=== PATIENT | female | born 1965 | race Caucasian/White ===

== ENCOUNTER 2018-04-29 15:00 | Outpatient (RCR) | payer MEDICARE, MEDICAID, SELFPAY ==
--- NOTE | 2018-03-27 14:35 | HMH.PTOPEV ---
PT Outpatient Evaluation Rehab PT Outpatient Evaluation Start: 03/27/18 13:05 Freq: Status: Active Protocol: Document 03/27/18 14:23 NATALIIA (Rec: 03/27/18 14:35 PHORFANNY [id number]) Electronically Signed By Paul Hunter, PT 03/27/18 14:23 Outpatient Therapy Subjective History Subjective History Pt is 52 yowf who presents with c/o robert knee pain (left > right) x ~ 3 yrs, gradually worsening symptoms. She reports she was diagnosed with RA, OA, and fibromyalgia when her pain first began. She has been to multiple different MDs over the past 3 yrs due to not disagreement about her plan of care. She has tried injections in both knees with little to no success. She reports pain is constant, but worse with certain movements and activities. She also has hx of HTN. Chief Complaint Pain Stiff Symptom Type Ache Throb Sharp Shooting Symptoms Relieved By Heat Symptoms Aggravated By Walking Prior Functional Limitations Standing Walking Stairs Current Functional Limitations Standing Walking Stairs Symptom Description Constant but Variable Level of pain today (0-10) 6 Pain scale - at its worst (0-10) 10 Hip/Knee Eval Gait Observation General Gait Pattern Observation Antalgic Gait Assistive Device Assistive Devices Straight Cane Palpation Tenderness bilateral Knee Palpation Finding Tenderness MMT Hip Flexion Strength Grade 4 Good Hip Abduction Strength Grade 4 Good Hip Adduction Strength Grade 5 Normal Hip Extension Strength Grade 5 Normal Knee Extension Strength Grade 5 Normal Knee Flexion Strength Grade 4 Good ROM left Knee Flexion Active Range of Motion ( 30-109 degrees) right Knee Flexion Active Range of Motion ( 5-120 degrees) Special Tests Hip Gabriella's Test Negative Right Positive Left Outpatient Therapy Assessment Impairments Problems/Impairmments Palpation Tenderness
== END 2018-04-29 15:05 | disposition home or self-care (01) ==
LOC: PT 15:00
PROVIDERS: Visit Provider Orthopaedic Surgery
DX: M17.0 Bilateral primary osteoarthritis of knee (principal)
CPT/HCPCS: 97010; 97014; 97110; 97140; 97163; G0283

== ENCOUNTER 2018-11-21 14:57 | Observation (INO) ==
--- NOTE | 2018-11-21 15:27 | Emergency Department Note ---
ED Disposition Clinical Impression: Syncope and collapse, Hypertension, Chest pain Disposition: Still a Patient Condition on Discharge: Fair Instructions: DI for Syncope in Adults (Fainting), DI for Syncope in Children (Fainting) - Critical Care Critical Care Time: No Attestation: On , the high probability of a clinically significant, sudden or life threatening deterioration of the following system(s) required my full and direct attention, intervention and personal management. The time I documented below is in addition to time spent performing reported procedures but includes the following listed in this critical care notation. Medical Decision Making - Tye Inquiry Pt receiving controlled substance: No Tye was queried for this patient: No Vital Signs: 11/21/18 14:58 11/21/18 17:00 Temperature 98.7 F Temperature Source Oral Pulse Rate [Left Radial] 123 H 94 H Respiratory Rate 16 Blood Pressure [Right Arm] 153/118 H 122/87 Blood Pressure Mean [Right Arm] 129 98 Blood Pressure Source [Right Arm] Automatic Cuff Automatic Cuff Blood Pressure Position [Right Arm] Sitting 02 Sat by Pulse Oximetry 98 96 Oxygen Delivery Method Room Air Room Air - Lab Data Lab Results 11/21/18 15:03: POC Glucose 117 H 11/21/18 15:31: WBC 6.2, RBC 4.94, Hgb 13.5, Hct 41.7, MCV 84.3, MCH 27.3, MCHC 32.4, RDW 13.3, Plt Count 320, MPV 7.3 L, Neut % (Auto) 61.5, Lymph % (Auto) 28.4, Wilcox % (Auto) 7.7, Eos % (Auto) 1.5, Baso % (Auto) 0.9, Neut # (Auto) 3.8, Lymph # (Auto) 1.8, Wilcox # (Auto) 0.5, Eos # (Auto) 0.1, Baso # (Auto) 0.1 11/21/18 15:31: Sodium 143, Potassium 3.7, Chloride 106, Carbon Dioxide 26, Anion Gap 14.7, BUN 11, Creatinine 0.72, Estimated Creat Clear 145, Estimated GFR 84, Est GFR ( Amer) 102, Glucose 112 H, Calcium 8.9, Total Bilirubin 0.4, AST 22, ALT 28, Alkaline Phosphatase 83, Total Protein 7.2, Albumin 3.5, Globulin 3.7 H, Albumin/Globulin Ratio 0.9 L 11/21/18 15:31: Total Creatine Kinase 74, CK-MB (CK-2) < 0.5, CK-MB (CK-2) Rel Index 0.7, Troponin I < 0.02 11/21/18 16:00: Urine Color Yellow, Urine Appearance Clear, Urine pH 7.0, Ur Specific [place] 1.010, Urine Protein Negative, Urine Glucose (UA) Negative, Urine Ketones Negative, Urine Blood Negative, Urine Nitrate Negative, Urine Bilirubin Negative, Urine Urobilinogen 0.2, Ur Leukocyte Esterase Negative, Urine WBC Occasional, Ur Squamous Epith Cells 10-20, Urine Bacteria 1+ 11/21/18 16:00: Urine Opiates Screen Positive H, Urine Methadone Screen Negative, Ur Barbituates Screen Negative, Ur Phencyclidine Scrn Negative, Ur Amphetamines Screen Negative, U Benzodiazepines Scrn Positive H, Urine Cocaine Screen Negative, U Marijuana (THC) Screen Negative Result diagrams: 11/21/18 15:31 11/21/18 15:31 Orders (Tests/Meds): ORDERS Category Date Time Status CT head/brain wo con Stat Cat Scan 11/21/18 15:05 Taken Chest XR -- portable [XR chest portable] Stat Exams 11/21/18 14:58 Taken - Radiology Data #1 Image(s): Chest Image Reviewed: Yes I reviewed the patient's radiology image Preliminary Findings: Normal/NAD - ECG Data Tracing #1 Sinus tachycardia 111 possible left atrial enlargement left ventricular hypertrophy no acute ST segment or T wave findings. ECG initial impression date: 11/21/18 ECG initial impression time: 15:15 Medical Decision Narrative: The patient remained hemodynamically neurologically stable, this can was delayed due to technical issues. I spoke with Dr. Stuart who agreed to admit the patient for observation and rule out PA protocol and obtain the final CT scan report. Syncope HPI - General Chief Complaint: Syncope Stated Complaint: syncope Time Seen by Provider: 11/21/18 15:00 Mode of Arrival: Ambulatory Source of Information: Patient Limitations: No Limitations - History of Present Illness HPI narrative: 53 years old female with history of arthritis, hypertension and surgical menopause due to hysterectomy. Today at 230 the patient was arguing with her when she collapsed and became flaccid she was carried by her children into the family vehicle until arrived to the hospital 20 minutes later when she became arousable. The patient admitted for being dizzy and having chest pain. She denies having shortness of breath palpitations nausea or vomiting. She had similar episode with no loss of consciousness on Mother's Day. She did have a cardiac catheterization on 2008 it was normal. MD complaint: loss of consciousness Onset (ago): hour(s) Duration of episode: 20 -: minutes(s) Prodromal symptoms: lightheaded, chest pain Witnessed: yes - by bystander Context: other (While arguing with her . ) Injuries sustained associated with event: none Current symptoms: none Treatments prior to arrival: none - Related Data Home Medications Medication Instructions Recorded Confirmed Amlodipine Besylate [Norvasc 5mg 5 mg PO DAILY 09/05/17 11/11/18 tablet] Aspirin 81 mg PO DAILY 09/05/17 11/11/18 Hydrocodone/Acetaminophen 1 tab PO TID 09/05/17 11/11/18 [Hydrocodone-Acetamin 7.5-325] Losartan Potassium 100 mg PO DAILY 09/05/17 11/11/18 diazePAM [Valium 10mg tablet] 10 mg PO NEEDED PRN 09/05/17 11/11/18 Previous Rx's Medication Instructions Recorded Azithromycin [Z-Mauro 250mg Tab] 250 mg PO UD DOSE PK #6 tab 11/11/18 Allergies Allergy/AdvReac Type Severity Reaction Status Date / Time duloxetine [DULOXETINE] Allergy Unknown UNKNOWN Verified 08/15/18 12:03 Sulfa (Sulfonamide Allergy Unknown UNKNOWN Verified 08/15/18 12:03 Antibiotics) [SULFA (SULFONAMIDE ANTIBIOTICS)] [facility] History - Hepatitis A Screen Attestation statement:: This patient has been screened for Hepatitis A risk factors. I have reviewed the patient's past medical history: Yes Medical History: Reports:: Anxiety, Asthma, Depression, Hypertension Denies:: Diabetes Mellitus Type 1, Diabetes Mellitus Type 2 Other Medical History: Reports: Arthritis Laterality Cases: Left: Breast Biopsy Other Surgeries: Yes: , Tubal Ligation Comment: hysterectomy, exp surgery, left foot, left breast - Social History Smoking Status: Never smoker Alcohol Intake: never Occupational Status: other - Psychiatric History Pschychiatric History:: Reports:: Anxiety, Depression Family Hx:: Hypertension ROS Obtained: Yes All systems reviewed & no additional complaints Physical Exam - General General appearance: alert, in no apparent distress - Head Head exam: atraumatic, normocephalic, normal inspection - Eye Eye exam: Present: normal appearance, PERRL, EOMI. Absent: scleral icterus, nystagmus - ENT ENT exam: Present: normal exam, normal oropharynx, mucous membranes moist, TM's normal bilaterally, normal external ear exam - Neck Neck exam: Present: normal inspection, full ROM, trachea midline, other (No carotid bruit. ). Absent: tenderness, meningismus, lymphadenopathy - Chest Chest inspection: Present: normal inspection, symmetric chest wall rise. Absent: tenderness - Respiratory Respiratory exam: Present: normal lung sounds bilaterally. Absent: respiratory distress, wheezes - Cardiovascular Cardiovascular exam: Present: regular rate, normal rhythm. Absent: JVD - Abdominal Exam Abdominal exam: Present: soft, normal bowel sounds. Absent: distention, tenderness, guarding, rebound, rigidity - External exam: Present: normal external exam - Extremities Exam Extremities exam: Present: normal inspection, full ROM, normal capillary refill. Absent: calf tenderness - Back Exam Back exam: Present: normal inspection. Absent: tenderness, CVA tenderness (R), CVA tenderness (L) - Neurological Exam Neurological exam: Present: alert, oriented X3, CN II-XII intact, motor sensory deficit, reflexes normal - Psychiatric Psychiatric exam: Present: normal affect, normal mood - Skin Skin exam: Present: warm, dry, intact, normal color - Lymphatic Lymphatic Findings: no adenopathy
[2018-11-21 15:44] LABS: Basophils # 0.1 K/mm3 (0-0.2); Basophils % 0.9 % (0.1-2.0); Eosinophils # 0.1 K/mm3 (0.0-0.4); Eosinophils % 1.5 % (0.1-12.0); Hematocrit 41.7 % (37.0-47.0); Hemoglobin 13.5 g/dL (12.2-16.2); Lymphocytes # 1.8 K/mm3 (0.7-4.5); Lymphocytes % 28.4 % (10-50); Mean Corpuscular HGB Conc 32.4 g/dL (31.8-35.4); Mean Corpuscular Volume 84.3 fl (81-99); Mean Platelet Volume 7.3 fl (7.4-10.4); Monocytes # 0.5 K/mm3 (0.1-1.0); Monocytes % 7.7 % (1.7-9.3); Neutrophils # 3.8 K/mm3 (1.8-7.8); Neutrophils % 61.5 % (37.0-80.0); Platelet Count 320 K/mm3 (142-424); Red Blood Count 4.94 M/mm3 (4.20-5.40); Red Cell Distribution Width 13.3 % (11.5-17.5); White Blood Count 6.2 K/mm3 (4.8-10.8)
[2018-11-21 15:55] LABS: Albumin Level 3.5 gm/dL (3.4-5.0); Albumin/Globulin Ratio 0.9 (1.1-1.8); Anion Gap 14.7 mEq/L (5-15); Bilirubin,Total 0.4 mg/dL (0.2-1.0); Calcium 8.9 mg/dL (8.5-10.1); Globulin 3.7 gm/dl (1.3-3.2); Total Protein,Serum 7.2 gm/dL (6.4-8.2)
[2018-11-21 16:05] LABS: Creatine Kinase 74 U/L (26-192)
[2018-11-21 16:20] LABS: Microscopic, Urine URINE MICROSCOPIC (MICROSCOPIC)
[2018-11-21 16:22] LABS: Appearance,Urine CLEAR (Clear); Bilirubin,Urine Negative (Negative); Blood, Urine Negative (Negative); Color,Urine YELLOW (Yellow); Glucose,Urine (UA) Negative (Negative); Ketones,Urine Negative (Negative); Leukocyte Esterase,Urine Negative (Negative); Protein,Urine Negative (Negative); Urobilinogen,Urine 0.2 EU/dl (0.2)
[2018-11-21 16:30] LABS: Amphetamine/Metha Screen,Urine Negative ng/mL (<1000); Bacteria,Urine 1+ /lpf; Barbiturates Screen,Urine Negative ng/mL (<200); Benzodiazepines Screen,Urine Positive ng/mL (<200); Cannabinoid Screen,Urine Negative ng/mL (<50); Cocaine Screen,Urine Negative ng/mL (<300); Methadone Screen,Urine Negative ng/mL (<300); Opiate Screen,Urine Positive ng/mL (<300); Phencyclidine Screen,Urine Negative ng/mL (<25); WBC,Urine Occasional #/hpf (0-3)
--- NOTE | 2018-11-24 16:11 | H&P/Discharge Summary ---
General - General Admission date:: 11/21/18 Discharge date: 11/21/18 *Admission Date: 11/21/18 *Chief complaint: NA *History of present illness: SEE ER NOTES Patient left AMA less than 30 minutes after arriving on floor. No exam or plan done [facility] History Medical History: Reports:: Anxiety, Asthma, Depression, Hypertension Denies:: Diabetes Mellitus Type 1, Diabetes Mellitus Type 2 *Have you ever received a pneumonia vaccine?: Yes *Have you received a flu vaccine this season?: Yes Other Medical History: Reports: Arthritis Laterality Cases: Left: Breast Biopsy Other Surgeries: Yes: , Tubal Ligation - *Social History Smoking Status: Never smoker Alcohol Intake: never *Occupational Status:: other *Travel in the last 8 weeks: None - Psychiatric History Expresses thoughts of harming self/others: None Suicide Plan Description: No Plan Pschychiatric History:: Reports:: Anxiety, Depression Family Hx:: Hypertension Exam Vital signs and Labs for Last 24 Hours: Temp Pulse Resp BP Pulse Ox 98 F 88 18 132/74 96 11/21/18 18:20 11/21/18 18:20 11/21/18 18:20 11/21/18 18:20 11/21/18 17:00 I & O for Last 24 hours: Intake & Output 11/22/18 11/23/18 11/24/18 11/25/18 11:59 11:59 11:59 11:59 Weight 230 lb Discharge Plan - Patient Discharge Instructions - Follow up Plan Disposition: Left Against Medical Advice Home Medications: Home Medications Medication Instructions Recorded Confirmed Type Amlodipine Besylate [Norvasc 5mg 5 mg PO DAILY 09/05/17 11/21/18 History tablet] Aspirin 81 mg PO DAILY 09/05/17 11/21/18 History Hydrocodone/Acetaminophen 1 tab PO TID 09/05/17 11/21/18 History [Hydrocodone-Acetamin 7.5-325] Losartan Potassium 100 mg PO DAILY 09/05/17 11/21/18 History diazePAM [Valium 10mg tablet] 10 mg PO NEEDED PRN 09/05/17 11/21/18 History Prescriptions/Medication Reconciliation: No Action Losartan Potassium 100 mg PO DAILY Hydrocodone/Acetaminophen [Hydrocodone-Acetamin 7.5-325] 1 tab PO TID diazePAM [Valium 10mg tablet] 10 mg PO NEEDED PRN PRN Reason: Anxiety Amlodipine Besylate [Norvasc 5mg tablet] 5 mg PO DAILY Aspirin 81 mg PO DAILY
== END 2018-11-21 18:25 | disposition left against medical advice (07) ==
LOC: ER 14:57 → 2ND 14:57
PROVIDERS: ADMIT Internal Medicine Adolescent Medicine; ATTEND Internal Medicine Adolescent Medicine
DX: Z53.21 Procedure and treatment not carried out due to patient leaving prior to being seen by health care provider; Z79.82 Long term (current) use of aspirin; Z88.2 Allergy status to sulfonamides; R07.9 Chest pain, unspecified; Z88.8 Allergy status to other drugs, medicaments and biological substances; R55 Syncope and collapse; I10 Essential (primary) hypertension; Z79.899 Other long term (current) drug therapy
CPT/HCPCS: 70450; 71010; 71045; 80053; 80305; 81001; 82550; 82553; 82962; 84484; 85025; 93005; 99284; G0378

== ENCOUNTER → 2019-06-24 08:58 | Outpatient (CLI) | payer MEDICARE, MEDICAID, SELFPAY ==
--- NOTE | 2019-06-24 09:06 | XR_ITS ---
PROCEDURE: XR KNEE RT 4V CLINICAL INDICATION: right knee pain COMPARISON: KNEEAPSB KNEE-AP STANDING-BOTH KNEES from 08/09/2014 [id number] KNEE-4 OR 5 VIEWS-RT from 07/25/2016 [id number] KNEE-4 OR 5 VIEWS-LT from 01/30/2017 FINDINGS: No fracture or dislocation. No lytic or blastic change. There is normal mineralization. There is mild osteoarthritis at the medial compartment joint space. There is mild enthesopathy involving the anterior superior aspect of the patella. Other findings:Small suprapatellar joint effusion. IMPRESSION: No acute bone pathology. Mild medial compartment osteoarthritis with small joint effusion. Dictated by: Yaya Flores 06/24/2019 11:14 Electronically signed by Yaya Flores in [place] 06/24/2019 11:14
--- NOTE | 2019-06-24 09:06 | XR_ITS ---
PROCEDURE: XR KNEE LT 4V CLINICAL INDICATION: left knee pain COMPARISON: KNEEAPSB KNEE-AP STANDING-BOTH KNEES from 08/09/2014 [id number] KNEE-4 OR 5 VIEWS-RT from 07/25/2016 [id number] KNEE-4 OR 5 VIEWS-LT from 01/30/2017 FINDINGS: No fracture or dislocation. No lytic or blastic change. There is normal mineralization. The joint spaces are well-preserved. No significant degenerative/arthritic changes. No erosive changes evident. Chronic periosteal reaction is seen along the posterior and lateral margin of proximal fibula. A small suprapatellar joint effusion is noted. Other findings:None. IMPRESSION: No acute bone findings. Dictated by: Yaya Flores 06/24/2019 15:19 Electronically signed by Yaya Flores in [place] 06/24/2019 15:19
== END ==
PROVIDERS: PCP Family Medicine; Visit Provider Orthopaedic Surgery
DX: M17.12 Unilateral primary osteoarthritis, left knee (principal); M17.11 Unilateral primary osteoarthritis, right knee
CPT/HCPCS: 73564

== ENCOUNTER → 2020-05-30 13:23 | Outpatient (POV) | payer MEDICARE, MEDICAID, SELFPAY | PROVIDERS: Visit Provider Dermatology | DX: Z00.00 Encounter for general adult medical examination without abnormal findings (principal) ==

== ENCOUNTER → 2020-06-20 10:21 | Outpatient (POV) | payer MEDICARE, MEDICAID, SELFPAY | PROVIDERS: Visit Provider Dermatology | DX: Z00.00 Encounter for general adult medical examination without abnormal findings (principal) ==

== ENCOUNTER → 2020-07-18 13:12 | Outpatient (CLI) | payer MEDICARE, MEDICAID, SELFPAY ==
--- NOTE | 2020-07-18 13:18 | XR_ITS ---
PROCEDURE: XR KNEE RT 4V weight-bearing CLINICAL INDICATION: right knee pain COMPARISON: CR [id number] KNEE-4 OR 5 VIEWS-RT from 07/25/2016 CR [id number] KNEE-4 OR 5 VIEWS-LT from 01/30/2017 CR XR KNEE LT 4V from 06/24/2019 CR XR KNEE RT 4V from 06/24/2019 FINDINGS: There is no compartmental narrowing. There is possible osteopenia, although this could be secondary to imaging settings. Bone mineral density DEXA exam is suggested. There is moderate degenerative change the tibiofibular proximal articulation. There is minimal degenerative change of the medial compartment. There is a small insertional osteophyte at superior patellar pole. The there is minimal fluid within the joint space, decreased from the prior x-ray. IMPRESSION: Possible osteopenia. Bone mineral density to x-ray exam is suggested. Degenerative changes at the tibial fibular proximal articulation. Minimal scattered degenerative changes as described above. Dictated by: Roxi William 07/18/2020 13:53 Roxi William in [place] 07/18/2020 13:53
--- NOTE | 2020-07-18 13:18 | XR_ITS ---
PROCEDURE: XR KNEE LT 4V weight bearing CLINICAL INDICATION: left knee pain COMPARISON: CR [id number] KNEE-4 OR 5 VIEWS-RT from 07/25/2016 CR [id number] KNEE-4 OR 5 VIEWS-LT from 01/30/2017 CR XR KNEE LT 4V from 06/24/2019 CR XR KNEE RT 4V from 06/24/2019 FINDINGS: There is possible osteopenia. Bone mineral density study (DEXA) is suggested. There is no compartmental narrowing or degenerative change. There is normal patellar alignment on sunrise view. A small proximal fibular exostosis is better visualized on current study than on positioning from prior study. This is a normal anatomic variation. There is no joint space effusion on the current x-ray. IMPRESSION: Possible osteopenia. Bone mineral density study is suggested. Dictated by: Roxi William 07/18/2020 13:50 Roxi William in [place] 07/18/2020 13:50
== END ==
PROVIDERS: Visit Provider Orthopaedic Surgery
DX: M17.0 Bilateral primary osteoarthritis of knee
CPT/HCPCS: 73564

== ENCOUNTER 2020-08-30 17:12 | Emergency (ER) | payer MEDICARE, MEDICAID, SELFPAY ==
[2020-08-30 17:36] VITALS: BP 102/71; PULSE 89; RESP 16; TEMP 37; O2SAT 98; BMI 35.4
--- NOTE | 2020-08-30 17:50 | HMH.EDUTC ---
[facility] [place] Clinical Impression: Bronchitis Asthma exacerbation Qualifiers: Asthma severity: unspecified severity Asthma persistence: unspecified Qualified Code(s): J45.901 - Unspecified asthma with (acute) exacerbation Disposition: Home, Self-Care Condition on Discharge: Good Instructions: Asthma -- Adult, DI for Asthma -- Adult Additional Instructions: Drink plenty of fluids. Take tylenol or ibuprofen for pain or fever. Take the medications as directed. Follow up with your regular doctor. GO TO THE ER FOR ANY WORSENING SYMPTOMS Prescriptions: Promethazine/Dextromethorphan [Promethazine-Dm Syrup] 5 ml PO Q6HP PRN #240 syrup PRN Reason: Cough Transmission Status: Received by [email or web address] #[id number] Amoxicillin/Potassium Clav [Augmentin 875-125 Tablet] 1 tab PO Q12H 10 Days #20 tab Transmission Status: Received by [email or web address] #[id number] Fluconazole [Diflucan 150mg tab] 150 mg PO ONCE #1 tab Transmission Status: Received by [email or web address] #[id number] predniSONE [Prednisone 20mg Tab] 20 mg PO BID 5 Days #10 tab Transmission Status: Received by [email or web address] #[id number] Referrals: Bean Herbert [Primary Care Provider] - Time of Disposition: 17:52 Medical Decision Making - Medical Records Medical records reviewed: No: I reviewed the patient's medical records. - Tye Inquiry Pt receiving controlled substance: No Vital Signs: 08/30/20 17:36 08/30/20 18:09 Temperature 98.6 F 98 F Temperature Source Oral Oral Pulse Rate 65 Pulse Rate [Left] 89 Respiratory Rate 16 16 Blood Pressure 104/74 L Blood Pressure [Right Arm] 102/71 L Blood Pressure Mean [Right Arm] 81 Blood Pressure Source Automatic Cuff Blood Pressure Source [Right Arm] Automatic Cuff Blood Pressure Position Sitting Blood Pressure Position [Right Arm] Sitting 02 Sat by Pulse Oximetry 98 Oxygen Delivery Method Room Air Room Air [facility] [place] HPI - General Stated complaint: Cough,SOB Time Seen by Provider: 08/30/20 17:50 Mode of Arrival: Ambulatory Source of Information: Patient Limitations: No Limitations Description of Symptoms (Recalled from Triage Doc. by RN): coughing for the past 2 days HEENT Symptoms (Recalled from RN notes): Yes Resp Symptoms (Recalled from RN notes): No Skin Symptoms (Recalled from RN notes): No MS Symptoms (Recalled from RN notes): No Functional Status (Recalled from RN notes): na - History of Present Illness Provider Complaint: She states that for the past 5 days, she has had a worsening cough and chest congestion. She has a history of asthma. She denies any fever/chills/body aches. She denies any contact with covid-19. - Related Data Home Medications Medication Instructions Recorded Confirmed Amlodipine Besylate [Norvasc 5mg 5 mg PO DAILY 09/05/17 07/18/20 tablet] Aspirin 81 mg PO DAILY 09/05/17 07/18/20 Hydrocodone/Acetaminophen 1 tab PO TID 09/05/17 07/18/20 [Hydrocodone-Acetamin 7.5-325] Losartan Potassium 100 mg PO DAILY 09/05/17 07/18/20 diazePAM [Valium 10mg tablet] 10 mg PO NEEDED PRN 09/05/17 07/18/20 ergocalciferol (vitamin D2) 1,250 PO 07/08/19 07/18/20 mcg (50,000 unit) capsule ipratropium 20 mcg-albuterol 100 INHALATION 07/08/19 07/18/20 mcg/actuation mist for inhalation prednisone 5 mg tablet PO 07/08/19 07/18/20 Previous Rx's Medication Instructions Recorded Fluconazole [Diflucan 150mg tab] 150 mg PO ONCE #1 tab 04/23/19 Fluticasone Propionate [Flonase 2 spr NS DAILY #1 bottle 04/23/19 50mcg nasal spray 16gm] Amoxicillin/Potassium Clav 1 tab PO Q12H 10 Days #20 tab 08/30/20 [Augmentin 875-125 Tablet] Fluconazole [Diflucan 150mg tab] 150 mg PO ONCE #1 tab 08/30/20 Promethazine/Dextromethorphan 5 ml PO Q6HP PRN #240 syrup 08/30/20 [Promethazine-Dm Syrup] predniSONE [Prednisone 20mg 20 mg PO BID 5 Days #10 tab 08/30/20 Tab] Allergies Allergy/AdvReac Type Severity Reaction Status Date / Time duloxetine [DULOXETINE] Allergy Unknow
[2020-08-30 18:09] VITALS: BP 104/74; PULSE 65; RESP 16; TEMP 36.6; O2SAT 98
== END 2020-08-30 18:10 | disposition home or self-care (01) ==
PROVIDERS: Emergency Provider Nurse Practitioner Family; PCP Family Medicine
DX: J20.9 Acute bronchitis, unspecified (principal); J45.901 Unspecified asthma with (acute) exacerbation; I10 Essential (primary) hypertension; F41.8 Other specified anxiety disorders; Z88.2 Allergy status to sulfonamides; Z79.899 Other long term (current) drug therapy
CPT/HCPCS: G0463; 99202

== ENCOUNTER 2020-09-08 11:56 | Emergency (ER) | payer MEDICARE, MEDICAID, SELFPAY ==
[2020-09-08 11:58] VITALS: BP 117/79; PULSE 109; RESP 20; TEMP 37; O2SAT 94; BMI 34.7
--- NOTE | 2020-09-08 12:03 | HMH.EDGENADL ---
ED Disposition Clinical Impression: Laryngitis, Viral upper respiratory illness Disposition: Home, Self-Care Condition on Discharge: Good Instructions: DI for Viral Upper Respiratory Infection -- Adult Additional Instructions: Follow-up with your primary care in 2 to 3 days for repeat evaluation and to recommend treating your symptoms with Tylenol and ibuprofen. Return to the ED for any significant worsening of your symptoms or development of shortness of breath or difficulty swallowing. Prescriptions: Dextromethorphan Polistirex [Delsym] 30 mg PO BID #300 [email or web address] Transmission Status: Pending to [facility] Time of Disposition: 12:53 - Critical Care Critical Care Time: No Attestation: On , the high probability of a clinically significant, sudden or life threatening deterioration of the following system(s) required my full and direct attention, intervention and personal management. The time I documented below is in addition to time spent performing reported procedures but includes the following listed in this critical care notation. Medical Decision Making - Medical Records Medical records reviewed: Yes: I reviewed the patient's medical records. - Tye Inquiry Pt receiving controlled substance: No Vital Signs: 09/08/20 11:58 Temperature 98.6 F Temperature Source Oral Pulse Rate [Left Radial] 109 H Respiratory Rate 20 Blood Pressure [Right Arm] 117/79 Blood Pressure Mean [Right Arm] 91 Blood Pressure Source [Right Arm] Automatic Cuff Blood Pressure Position [Right Arm] Sitting 02 Sat by Pulse Oximetry 94 L Oxygen Delivery Method Room Air Orders (Tests/Meds): ORDERS Category Date Time Status Chest XR 2 view (NOT portable) [XR chest 2V] Stat Exams 09/08/20 12:42 Ordered Medical Decision Narrative: 54-year-old female who presents with symptoms of a viral upper respiratory infection with history consistent with laryngitis and croup type symptoms last night. She is currently having no evidence of stridor on exam and is well-appearing and nontoxic. Oral pharyngeal exam is benign. She is not febrile and hemodynamically stable. In a adult vaccinated individual have very low suspicion for epiglottitis with no significant immune suppression noted on history. She will be given Decadron 10 mg and instructed to follow-up with her primary care within 2 to 3 days and discharged home in good condition. General Adult HPI - General Chief complaint: PAIN Stated complaint: lung congestion, can't sleep Time Seen by Provider: 09/08/20 12:03 Mode of Arrival: Ambulatory Source of Information: Patient Limitations: No Limitations - History of Present Illness HPI narrative: 54-year-old female who has had 3 days of upper respiratory congestion and cough that last night changed to a barky cough with some shortness of breath. States that her child and her mother had similar symptoms over the past week. She had a sore throat with significant phlegm production and nasal congestion and drainage. Denies difficulty swallowing and is having no shortness of breath or difficulty breathing at this time. No medication taken prior to arrival. States that her hoarse voice started today. Onset (ago): day(s) - Related Data Home Medications Medication Instructions Recorded Confirmed Amlodipine Besylate [Norvasc 5mg 5 mg PO DAILY 09/05/17 07/18/20 tablet] Aspirin 81 mg PO DAILY 09/05/17 07/18/20 Hydrocodone/Acetaminophen 1 tab PO TID 09/05/17 07/18/20 [Hydrocodone-Acetamin 7.5-325] Losartan Potassium 100 mg PO DAILY 09/05/17 07/18/20 diazePAM [Valium 10mg tablet] 10 mg PO NEEDED PRN 09/05/17 07/18/20 ergocalciferol (vitamin D2) 1,250 PO 07/08/19 07/18/20 mcg (50,000 unit) capsule ipratropium 20 mcg-albuterol 100 INHALATION 07/08/19 07/18/20 mcg/actuation mist for inhalation prednisone 5 mg tablet PO 07/08/19 07/18/20 Previous Rx's Medication Instructions Recorded Fluconazole [Diflu
[2020-09-08 12:30] VITALS: BP 115/80; PULSE 99; O2SAT 95
--- NOTE | 2020-09-08 12:42 | XR_ITS ---
PROCEDURE: XR CHEST 2V CLINICAL HISTORY: cough with immune suppression COMPARISON: CR CXR CHEST(2 VIEWS-NOT PORTABLE) from 02/19/2017 CR CXR CHEST(2 VIEWS-NOT PORTABLE) from 05/08/2017 CR CXR2V XR chest 2V from 09/05/2017 FINDINGS: The cardiomediastinal silhouette and pulmonary vascularity are within normal limits. The lungs are clear without infiltrates, suspicious nodules, or pleural effusions. No acute bony abnormalities. There is mild degenerate change right shoulder with a high-riding humeral head. IMPRESSION: No acute findings. Dictated by: Dr. Adam Akhtar MD 09/08/2020 13:10 Dr. Adam Akhtar MD in [place] 09/08/2020 13:10
[2020-09-08 13:31] VITALS: BP 124/73; PULSE 98; O2SAT 95
--- NOTE | 2020-09-08 13:37 | HMH.EDGENADL ---
ED Disposition Clinical Impression: Viral upper respiratory illness Sinusitis Qualifiers: Sinusitis location: maxillary Chronicity: acute Clinical Impression: (Ruled Out): Laryngitis Disposition: Home, Self-Care Condition on Discharge: Good Instructions: DI for Viral Upper Respiratory Infection -- Adult Additional Instructions: Follow-up with your primary care in 2 to 3 days for repeat evaluation and to recommend treating your symptoms with Tylenol and ibuprofen. Return to the ED for any significant worsening of your symptoms or development of shortness of breath or difficulty swallowing. Prescriptions: Dextromethorphan Polistirex [Delsym] 30 mg PO BID #300 sherie.er.12h Transmission Status: Received by [facility] [employer] Doxycycline Hyclate [Doxycycline 100mg Capsule] 100 mg PO Q12 10 Days #20 cap Transmission Status: Pending to [facility] [employer] Referrals: PCP,No [Primary Care Provider] - Time of Disposition: 13:48 - Critical Care Critical Care Time: No Attestation: On 09/08/20, the high probability of a clinically significant, sudden or life threatening deterioration of the following system(s) required my full and direct attention, intervention and personal management. The time I documented below is in addition to time spent performing reported procedures but includes the following listed in this critical care notation. Medical Decision Making - Medical Records Medical records reviewed: Yes: I reviewed the patient's medical records. - Tye Inquiry Pt receiving controlled substance: No Vital Signs: 09/08/20 11:58 Temperature 98.6 F Temperature Source Oral Pulse Rate [Left Radial] 109 H Respiratory Rate 20 Blood Pressure [Right Arm] 117/79 Blood Pressure Mean [Right Arm] 91 Blood Pressure Source [Right Arm] Automatic Cuff Blood Pressure Position [Right Arm] Sitting 02 Sat by Pulse Oximetry 94 L Oxygen Delivery Method Room Air Orders (Tests/Meds): ORDERS Category Date Time Status Covid-19 Nasal PCR ([facility]) Routine Lab 09/08/20 13:37 Ordered - Radiology Data #1 Image(s): Chest Image Reviewed: Yes I reviewed the patient's radiology image, Yes I have reviewed radiologist's interpretation Preliminary Findings: Normal/NAD Medical Decision Narrative: 54-year-old female with a history of rheumatoid arthritis on immunologic therapy who presents with 14 days of continued cough that is now progressed to mostly sinus pressure and congestion with drainage. Patient is overall well-appearing and nontoxic on initial examination her lung exam is benign however due to increased risk with immunosuppression patient will be evaluated the chest x-ray. Chest x-ray demonstrates no evidence of pneumonia atypical or focal. Suspect despite Augmentin therapy she could have converted to a bacterial sinusitis. She will be switched to doxycycline to broaden atypical coverage. She was discharged home in good condition with appropriate return precautions. General Adult HPI - General Chief complaint: PAIN Stated complaint: lung congestion, can't sleep Time Seen by Provider: 09/08/20 12:03 Mode of Arrival: Ambulatory Source of Information: Patient Limitations: No Limitations Description of Symptoms (Recalled from ER Triage Doc. by RN): c/o soa with a cough with mucus, unsure the color. Has been feeling tired for a week - History of Present Illness HPI narrative: 54-year-old female who presents with continued cough as well as upper respiratory congestion since August 24. She had been seen and treated with Augmentin for presumed sinusitis. Patient has a history of rheumatoid arthritis and is on multiple immunologic's. She has had mild shortness of breath associated with cough. Denies chest pain but endorses generalized fatigue and body aches with no fever. She has pressure over her bilateral sinuses. Per daughter and grandchild have similar symptoms that are more consistent with viral upper r
[2020-09-08 14:07] VITALS: BP 124/73; PULSE 105; RESP 20; TEMP 37; O2SAT 95
== END 2020-09-08 14:09 | disposition home or self-care (01) ==
PROVIDERS: Emergency Provider Student in an Organized Health Care Education/Training Program; PCP Family Medicine
DX: J06.9 Acute upper respiratory infection, unspecified (principal); J01.00 Acute maxillary sinusitis, unspecified; Z20.822 Contact with and (suspected) exposure to COVID-19; I10 Essential (primary) hypertension; F41.8 Other specified anxiety disorders; M06.9 Rheumatoid arthritis, unspecified; M79.7 Fibromyalgia; J45.909 Unspecified asthma, uncomplicated; Z79.899 Other long term (current) drug therapy; Z88.2 Allergy status to sulfonamides
CPT/HCPCS: 71046; 99282; U0003

== ENCOUNTER 2021-03-22 17:13 | Emergency (ER) | payer MEDICARE, MEDICAID, SELFPAY ==
[2021-03-22 17:27] VITALS: BP 142/85; PULSE 87; RESP 18; TEMP 36.8; O2SAT 95; BMI 38.7
--- NOTE | 2021-03-22 17:37 | HMH.EDUTC ---
[facility] [place] Clinical Impression: Exposure to COVID-19 virus, Upper respiratory infection, viral Disposition: Home, Self-Care Condition on Discharge: Good Instructions: DI for Viral Upper Respiratory Infection -- Adult Additional Instructions: covid swab was sent to lab, call later today for results. self isolate until test results are known to be negative No sign of a bacterial infection. Likely viral. Viruses can take 7-14 days to run their course. Nasal saline and bulb syringe or nose [place] to remove nasal drainage to help with nasal congestion. Hard to eat, drink, sleep with nasal congestion so important to keep this cleaned out. Monitor temp. Tylenol or Motrin as needed for pain or fever Encourage fluids, water, Gatorade, Powerade, Pedialyte if infant/toddler/child Warm salt water gargles Warm fluids Sore throat lozenges Sleep elevated Humidifier/vaporizer Follow-up immediately for new or worsening symptoms or no noticeable improvement over the next 48-72 hours. Prescriptions: Fluticasone Propionate [Flonase 50mcg nasal spray 16gm] 1 spr NS DAILY 14 Days #9.9 ml Transmission Status: Pending to [facility] Referrals: Bean Herbert [Primary Care Provider] - Time of Disposition: 17:48 Medical Decision Making - Tye Inquiry Pt receiving controlled substance: No Vital Signs: 03/22/21 17:27 Temperature 98.3 F Temperature Source Oral Pulse Rate [Right Radial] 87 Respiratory Rate 18 Blood Pressure [Right Arm] 142/85 H Blood Pressure Mean [Right Arm] 104 Blood Pressure Source [Right Arm] Automatic Cuff Blood Pressure Position [Right Arm] Sitting 02 Sat by Pulse Oximetry 95 Oxygen Delivery Method Room Air Orders (Tests/Meds): ORDERS Category Date Time Status Covid-19 Nasal PCR ([facility]) Routine Lab 03/22/21 17:35 Ordered [facility] [place]PI - General Chief complaint: [facility] Stated complaint: sinuses, poss covid Time Seen by Provider: 03/22/21 17:37 Mode of Arrival: Ambulatory Source of Information: Patient Limitations: No Limitations Description of Symptoms (Recalled from Triage Doc. by RN): C/O not feeling good . Pt states that her sinuses are full. Requests COVID test HEENT Symptoms (Recalled from RN notes): Yes (sinus fullness) Resp Symptoms (Recalled from RN notes): No Skin Symptoms (Recalled from RN notes): No MS Symptoms (Recalled from RN notes): No Functional Status (Recalled from RN notes): n/a - History of Present Illness Provider Complaint: 55 yr old female presents for sinus pain,sinus congestion,and cough that worsens at night. pt states she was exposed to someone that tested positive for covid and would like to be checked - Related Data Home Medications Medication Instructions Recorded Confirmed Amlodipine Besylate [Norvasc 5mg 5 mg PO DAILY 09/05/17 07/18/20 tablet] Aspirin 81 mg PO DAILY 09/05/17 07/18/20 Hydrocodone/Acetaminophen 1 tab PO TID 09/05/17 07/18/20 [Hydrocodone-Acetamin 7.5-325] Losartan Potassium 100 mg PO DAILY 09/05/17 07/18/20 diazePAM [Valium 10mg tablet] 10 mg PO NEEDED PRN 09/05/17 07/18/20 ergocalciferol (vitamin D2) 1,250 PO 07/08/19 07/18/20 mcg (50,000 unit) capsule ipratropium 20 mcg-albuterol 100 INHALATION 07/08/19 07/18/20 mcg/actuation mist for inhalation prednisone 5 mg tablet PO 07/08/19 07/18/20 Previous Rx's Medication Instructions Recorded Fluconazole [Diflucan 150mg tab] 150 mg PO ONCE #1 tab 04/23/19 Fluticasone Propionate [Flonase 2 spr NS DAILY #1 bottle 04/23/19 50mcg nasal spray 16gm] Amoxicillin/Potassium Clav 1 tab PO Q12H 10 Days #20 tab 08/30/20 [Augmentin 875-125 Tablet] Fluconazole [Diflucan 150mg tab] 150 mg PO ONCE #1 tab 08/30/20 Promethazine/Dextromethorphan 5 ml PO Q6HP PRN #240 syrup 08/30/20 [Promethazine-Dm Syrup] predniSONE [Prednisone 20mg 20 mg PO BID 5 Days #10 tab 08/30/20 Tab] Dextromethorphan Polistirex 30 mg PO BID #300 sherie.er.12h 09/08/20
[2021-03-22 18:08] VITALS: BP 142/85; PULSE 87; RESP 18; TEMP 36.8; O2SAT 95
== END 2021-03-22 18:10 | disposition home or self-care (01) ==
PROVIDERS: Emergency Provider Nurse Practitioner Family; PCP Family Medicine
DX: J06.9 Acute upper respiratory infection, unspecified (principal); Z20.822 Contact with and (suspected) exposure to COVID-19; F41.8 Other specified anxiety disorders; I10 Essential (primary) hypertension
CPT/HCPCS: G0463; 99202; C9803; U0003; U0005

== ENCOUNTER → 2021-04-23 16:31 | Outpatient (CLI) | payer MEDICARE, MEDICAID, SELFPAY | PROVIDERS: Visit Provider Nurse Practitioner | DX: Z20.822 Contact with and (suspected) exposure to COVID-19 (principal) | CPT/HCPCS: C9803; U0003; U0005 ==

== ENCOUNTER → 2021-04-27 10:33 | Outpatient (CLI) | payer MEDICARE, MEDICAID, SELFPAY | PROVIDERS: Visit Provider Nurse Practitioner | DX: Z20.822 Contact with and (suspected) exposure to COVID-19 (principal) | CPT/HCPCS: C9803; U0003; U0005 ==

== ENCOUNTER → 2021-05-02 12:43 | Outpatient (CLI) | payer MEDICARE, MEDICAID, SELFPAY ==
[2021-05-02 13:13] VITALS: BMI 27.4
== END ==
PROVIDERS: PCP Family Medicine; Visit Provider Nurse Practitioner
DX: Z20.822 Contact with and (suspected) exposure to COVID-19 (principal)
CPT/HCPCS: C9803; U0003; U0005

== ENCOUNTER 2021-05-05 16:20 | Emergency (ER) | payer MEDICARE, MEDICAID, SELFPAY ==
--- NOTE | 2021-05-05 16:31 | XR_ITS ---
PROCEDURE INFORMATION: Exam: XR Chest Exam date and time: 05/05/2021 4:31 PM Age: 55 years old Clinical indication: Cough; Patient HX: SOA. Chronic lung problem exacerbated. TECHNIQUE: Imaging protocol: XR of the chest. Views: 2 views. COMPARISON: CR XR CHEST 2V 09/08/2020 12:48 PM FINDINGS: Lungs: Unremarkable. No consolidation. Pleural spaces: Unremarkable. No pleural effusion. No pneumothorax. Heart/Mediastinum: Unremarkable. No cardiomegaly. Bones/joints: Unremarkable. IMPRESSION: No acute findings.
[2021-05-05 16:32] VITALS: BP 120/97; PULSE 123; RESP 18; TEMP 36.9; O2SAT 96; BMI 36.2
--- NOTE | 2021-05-05 17:24 | HMH.EDUTC ---
[facility] [place] Impression: Sinusitis Qualifiers: Sinusitis location: unspecified location Chronicity: acute Recurrence: non-recurrent Qualified Code(s): J01.90 - Acute sinusitis, unspecified Disposition: Home, Self-Care Condition on Discharge: Good Instructions: DI for Sinusitis Additional Instructions: Drink plenty of fluids. Take tylenol or ibuprofen for pain or fever. Take the medications as directed. Follow up with your regular doctor. GO TO THE ER FOR ANY WORSENING SYMPTOMS Prescriptions: Amoxicillin/Potassium Clav [Augmentin 875-125 Tablet] 1 tab PO Q12H 10 Days #20 tab Transmission Status: Pending to [facility] Benzonatate [Benzonatate 100mg cap] 100 mg PO TIDP PRN #30 cap PRN Reason: Cough Transmission Status: Pending to [facility] Referrals: Bean Herbert [Primary Care Provider] - Time of Disposition: 17:46 Medical Decision Making - Medical Records Medical records reviewed: No: I reviewed the patient's medical records. - Tye Inquiry Pt receiving controlled substance: No Vital Signs: 05/05/21 16:32 Temperature 98.5 F Temperature Source Oral Pulse Rate [Left] 123 H Respiratory Rate 18 Blood Pressure [Right Arm] 120/97 H Blood Pressure Mean [Right Arm] 104 02 Sat by Pulse Oximetry 96 Orders (Tests/Meds): ORDERS Category Date Time Status Covid-19 Nasal PCR ([facility]) Routine Lab 05/05/21 17:38 Ordered - Radiology Data #1 Image(s): Chest Image Reviewed: Yes I reviewed the patient's radiology image, Yes I have reviewed radiologist's interpretation Preliminary Findings: Normal/NAD, No Infiltrates Seen PROCEDURE INFORMATION: Exam: XR Chest Exam date and time: 05/05/2021 4:31 PM Age: 55 years old Clinical indication: Cough; Patient HX: SOA. Chronic lung problem exacerbated. TECHNIQUE: Imaging protocol: XR of the chest. Views: 2 views. COMPARISON: CR XR CHEST 2V 09/08/2020 12:48 PM FINDINGS: Lungs: Unremarkable. No consolidation. Pleural spaces: Unremarkable. No pleural effusion. No pneumothorax. Heart/Mediastinum: Unremarkable. No cardiomegaly. Bones/joints: Unremarkable. IMPRESSION: No acute findings. [facility] [place] Stated complaint: cough, muscle pain, congestion Time Seen by Provider: 05/05/21 17:24 Mode of Arrival: Ambulatory Source of Information: Patient Limitations: No Limitations Description of Symptoms (Recalled from Triage Doc. by RN): pt c/o sinus pressure/congestion and SOA. pt states her lungs feel tighter than normal. pt states she has chronic lung problems from living in a house with black mold for so long, and chronic SOA. pt also reports having her first covid vaccine on 05/02. HEENT Symptoms (Recalled from RN notes): Yes Resp Symptoms (Recalled from RN notes): Yes Skin Symptoms (Recalled from RN notes): No MS Symptoms (Recalled from RN notes): No Functional Status (Recalled from RN notes): wnl - History of Present Illness Provider Complaint: She states that for the past week or so she has had worsening sinus congestion. She was exposed to covid-19 about 2 weeks ago, but she never developed covid, so she took the first vaccine injection 3 days ago. She states that since then she has felt like she has worse sinus congestion. She has a history of copd, but she denies shortness of breath. She would like to have a covid-19 test today due to her worsening symptoms and her history of copd and rheumatoid arthritis. - Related Data Home Medications Medication Instructions Recorded Confirmed Amlodipine Besylate [Norvasc 5mg 5 mg PO DAILY 09/05/17 04/18/21 tablet] Aspirin 81 mg PO DAILY 09/05/17 04/18/21 Hydrocodone/Acetaminophen 1 tab PO TID 09/05/17 04/18/21 [Hydrocodone-Acetamin 7.5-325] Losartan Potassium 100 mg PO DAILY 09/05/17 04/18/21 diazePAM [Valium 10mg tablet] 10 mg PO NEEDED PRN 04
[2021-05-05 17:50] VITALS: BP 120/97; PULSE 123; RESP 18; TEMP 36.9
== END 2021-05-05 18:02 | disposition home or self-care (01) ==
PROVIDERS: Emergency Provider Nurse Practitioner Family; PCP Family Medicine
DX: U07.1 COVID-19 (principal); J01.90 Acute sinusitis, unspecified; F41.8 Other specified anxiety disorders; I10 Essential (primary) hypertension; M79.7 Fibromyalgia; Z88.2 Allergy status to sulfonamides
CPT/HCPCS: 71046; 96372; 99202; C9803; G0463; U0003; U0005

== ENCOUNTER 2021-12-24 11:55 | Emergency (ER) | payer MEDICARE, MEDICAID, SELFPAY ==
[2021-12-24 12:25] VITALS: BP 108/70; PULSE 78; RESP 18; TEMP 36.6; O2SAT 96; BMI 32.0
--- NOTE | 2021-12-24 12:59 | HMH.EDUTC ---
[facility] [place] Disposition Clinical Impression: Exposure to COVID-19 virus Disposition: Home, Self-Care Condition on Discharge: Good Instructions: DI for COVID-19 (Suspected or Confirmed ), Preventing the Spread of Coronavirus Discharge Instructions Additional Instructions: *Monitor Temp, Over the counter Motrin or Tylenol as directed/as needed Tylenol every 4 hours and Motrin every 6 hours (as long as your family doctor has told you that you can take it) for fever or pain. and straight to ER if unable to lower temp less than 101.0 after medication given Follow up IMMEDIATELY for new or worsening symptoms or no Noticeable improvement over the next 48-72 hours. 911 for difficulty breathing or swallowing You were tested for today for COVID19 your test result should be back in the next 24-48 hours, you may check your results on the [facility] My Health Portal Make sure to take your Vitamins Vit. C Vit D and Zinc if you can take them Referrals: Provider,Referral, [Primary Care Provider] - Forms: Work/School Release Medical Decision Making - Tye Inquiry Pt receiving controlled substance: No Tye was queried for this patient: No Vital Signs: 12/24/21 12:25 Temperature 97.8 F Temperature Source Oral Pulse Rate [Right Brachial] 78 Respiratory Rate 18 Blood Pressure [Right Arm] 108/70 L Blood Pressure Mean [Right Arm] 82 Blood Pressure Source [Right Arm] Automatic Cuff Blood Pressure Position [Right Arm] Sitting 02 Sat by Pulse Oximetry 96 Oxygen Delivery Method Room Air Orders (Tests/Meds): ORDERS Category Date Time Status Covid-19 Nasal PCR ([facility]) Routine Lab 12/24/21 12:32 Ordered [facility] [place] HPI - General Stated complaint: covid exposure Time Seen by Provider: 12/24/21 12:59 Mode of Arrival: Ambulatory Source of Information: Patient Limitations: No Limitations Description of Symptoms (Recalled from Triage Doc. by RN): COVID TEST D/T EXPOSURE HEENT Symptoms (Recalled from RN notes): No Resp Symptoms (Recalled from RN notes): No Skin Symptoms (Recalled from RN notes): No MS Symptoms (Recalled from RN notes): No Functional Status (Recalled from RN notes): WNL - History of Present Illness Provider Complaint: Patient states that someone that she lives with tested positive for COVID this morning States that she is not having any symptoms but wanted to get tested - Related Data Home Medications Medication Instructions Recorded Confirmed Amlodipine Besylate [Norvasc 5mg 5 mg PO DAILY 09/05/17 04/18/21 tablet] Aspirin 81 mg PO DAILY 09/05/17 04/18/21 Hydrocodone/Acetaminophen 1 tab PO TID 09/05/17 04/18/21 [Hydrocodone-Acetamin 7.5-325] Losartan Potassium 100 mg PO DAILY 09/05/17 04/18/21 diazePAM [Valium 10mg tablet] 10 mg PO NEEDED PRN 09/05/17 04/18/21 ergocalciferol (vitamin D2) 1,250 PO 07/08/19 04/18/21 mcg (50,000 unit) capsule ipratropium 20 mcg-albuterol 100 INHALATION 07/08/19 04/18/21 mcg/actuation mist for inhalation Previous Rx's Medication Instructions Recorded Fluticasone Propionate [Flonase 2 spr NS DAILY #1 bottle 04/23/19 50mcg nasal spray 16gm] Dextromethorphan Polistirex 30 mg PO BID #300 sherie.er.12h 09/08/20 [Delsym] Amoxicillin/Potassium Clav 1 tab PO Q12H 10 Days #20 tab 05/05/21 [Augmentin 875-125 Tablet] Benzonatate [Benzonatate 100mg 100 mg PO TIDP PRN #30 cap 05/05/21 cap] Allergies Allergy/AdvReac Type Severity Reaction Status Date / Time duloxetine [DULOXETINE] Allergy Unknown UNKNOWN Verified 04/18/21 10:11 Sulfa (Sulfonamide Allergy Unknown UNKNOWN Verified 04/18/21 10:11 Antibiotics) [SULFA (SULFONAMIDE ANTIBIOTICS)] - Worker's Comp Is this a Worker's Comp case?: No [facility] History - Hepatitis A Screen Attestation statement:: This patient has been screened for Hepatitis A risk factors. I have reviewed the patient's past medical history: Yes Medical History: Reports:: Anxiety, Asthma, Depression, Hypertens
[2021-12-24 13:02] VITALS: BP 108/70; PULSE 78; RESP 18; TEMP 36.6; O2SAT 96
== END 2021-12-24 13:09 | disposition home or self-care (01) ==
PROVIDERS: Emergency Provider Nurse Practitioner; PCP Anesthesiology
DX: Z20.822 Contact with and (suspected) exposure to COVID-19 (principal)
CPT/HCPCS: 99212; C9803; G0463; U0003; U0005

== ENCOUNTER → 2022-01-16 10:41 | Outpatient (CLI) | payer MEDICARE, MEDICAID, SELFPAY ==
--- NOTE | 2022-01-16 10:49 | XR_ITS ---
FINAL REPORT CLINICAL HISTORY: left knee pain FINDINGS: LEFT KNEE: Four views of the left knee obtained. There is no acute fracture or dislocation. There is mild degenerative change. There is a small joint effusion. IMPRESSION: Mild degenerative change with no acute fracture. Small joint effusion. Reviewed, Interpreted and Dictated by Andrew Choudhary III, MD Transcribed by Luann Roger Authentic[facility] and [facility]
--- NOTE | 2022-01-16 10:49 | XR_ITS ---
FINAL REPORT CLINICAL HISTORY: right knee pain COMPARISON: July 18, 2020 FINDINGS: RIGHT KNEE: Four views of the right knee obtained. There is no acute fracture or dislocation. There is mild degenerative change. There is no soft tissue abnormality. IMPRESSION: Degenerative change with no acute fracture. Reviewed, Interpreted and Dictated by Andrew Choudhary III, MD Transcribed by Luann Roger Authenticated and [facility]
== END ==
PROVIDERS: PCP Family Medicine; Visit Provider Surgery
DX: M17.11 Unilateral primary osteoarthritis, right knee (principal); M25.562 Pain in left knee
CPT/HCPCS: 73564

== ENCOUNTER → 2022-07-08 08:54 | Outpatient (CLI) | payer MEDICARE, MEDICAID, SELFPAY ==
--- NOTE | 2022-07-08 09:00 | XR_ITS ---
FINAL REPORT CLINICAL HISTORY: H/O RA FINDINGS: LEFT HAND Three views of the left hand demonstrate no acute fracture. There is no dislocation. The visualized joint spaces are normally aligned. There is mild to moderate DIP and PIP joint space narrowing. There is moderate hypertrophic change at the basilar joint. The soft tissues are unremarkable. IMPRESSION: Findings are consistent with osteoarthritis. Reviewed, Interpreted and Dictated by Ej June MD Transcribed by Marcelina Kathleen Authenticated and [facility]
--- NOTE | 2022-07-08 09:00 | XR_ITS ---
FINAL REPORT CLINICAL HISTORY: H/O RA FINDINGS: RIGHT HAND Three views of the right hand demonstrate no acute fracture. There is no dislocation. The visualized joint spaces are normally aligned. There is mild to moderate DIP and PIP joint space narrowing. There is moderate hypertrophic change at the basilar joint. The soft tissues are unremarkable. IMPRESSION: Findings are consistent with osteoarthritis. Reviewed, Interpreted and Dictated by Ej June MD Transcribed by Marcelina Kathleen Authenticated and [facility]
== END ==
PROVIDERS: PCP Family Medicine; Visit Provider Internal Medicine Rheumatology
DX: M79.641 Pain in right hand (principal); M79.642 Pain in left hand
CPT/HCPCS: 73130

== ENCOUNTER → 2022-11-08 13:20 | Outpatient (CLI) | payer MEDICARE, MEDICAID, SELFPAY ==
--- NOTE | 2022-11-08 13:27 | XR_ITS ---
FINAL REPORT CLINICAL HISTORY: Lt knee pain COMPARISON: 01/16/2022 FINDINGS: LEFT KNEE 3 views of the left knee were obtained. There is no acute fracture or dislocation. There is moderate joint space narrowing. Degenerative changes are noted. Visualized joint spaces are normally aligned. Soft tissues are unremarkable. IMPRESSION: No acute bony abnormality. Reviewed, Interpreted and Dictated by Reed Ruano MD Transcribed by Donna Juan Authenticated and [facility]
--- NOTE | 2022-11-08 13:27 | XR_ITS ---
FINAL REPORT CLINICAL HISTORY: Rt knee pain COMPARISON: 01/16/2022 FINDINGS: RIGHT KNEE 3 views of the right knee were obtained. There is no acute fracture or dislocation. Moderate degenerative changes. Visualized joint spaces are normally aligned. Soft tissues are unremarkable. IMPRESSION: No acute bony abnormality. Reviewed, Interpreted and Dictated by Reed Ruano MD Transcribed by Donna Juan Authenticated and [facility]
== END ==
PROVIDERS: PCP Family Medicine; Visit Provider Orthopaedic Surgery
DX: M25.562 Pain in left knee (principal); M25.561 Pain in right knee
CPT/HCPCS: 73562

== ENCOUNTER 2023-04-26 16:10 | Emergency (ER) | payer MEDICARE, MEDICAID, SELFPAY ==
[2023-04-26 16:40] VITALS: BP 122/77; PULSE 87; RESP 18; TEMP 36.6; O2SAT 96; BMI 33.1
[2023-04-26 17:07] VITALS: BP 122/77; PULSE 87; RESP 18; TEMP 36.6; O2SAT 96
--- NOTE | 2023-04-26 17:13 | EXP.UTC ---
Discharge Plan Disposition Patient Disposition: Home, Self-Care Condition: Good Prescriptions Prescriptions: New azithromycin [Zithromax Z-Mauro] 250 mg tablet See Rx Instructions .ROUTE .COMPLEX 5 Days Qty: 6 0RF Rx Instructions: For 250 mg dose pack: take 500 mg today (day 1), then 250 mg for 4 days (days 2-5) No Action hydrocodone-acetaminophen 10-325 mg tablet 1 tab PO DAILY levothyroxine 25 mcg tablet 25 mcg PO DAILY Patient Comments: TAKE 1 TABLET BY MOUTH ONCE DAILY. hydroxyzine HCl 25 mg tablet 25 mg PO DAILY Patient Comments: TAKE 1 TABLET BY MOUTH NIGHTLY NEEDED FOR ITCHING. DO NOT DRIVE OR OPERATE HEAVY MACHINERY AFTER TAKING Referrals Follow up/Referrals: Bean Herbert [Primary Care Provider] - See instructions Activity Restrictions/Add. Instructions Additional Instructions/Restrictions: *Monitor Temp, Over the counter Motrin or Tylenol as directed/as needed Tylenol every 4 hours and Motrin every 6 hours (as long as your family doctor has told you that you can take it) for fever or pain. and straight to ER if unable to lower temp less than 101.0 after medication given *Warm salt water gargles may help to soothe the throat *Throat Lozenges? *Warm fluids like tea with honey may help to soothe the throat? *Sleep elevated *Humidifier/Vaporizer Follow up IMMEDIATELY for new or worsening symptoms or no Noticeable improvement over the next 48-72 hours. 911 for difficulty breathing or swallowing Clinical Impressions Clinical Impression: Sinusitis Qualifiers: Sinusitis location: unspecified location Chronicity: unspecified Qualified Code(s): J32.9 - Chronic sinusitis, unspecified Instructions Patient Instructions: Sinusitis, DI for Sinusitis Discharge ED Provider: Elena Butler [facility] [place] General Stated complaint: PLUNKETT, yuridia Mode of Arrival: Ambulatory Source of Information: Patient Limitations: No Limitations Time Seen by Provider: 04/26/23 17:13 Description of Symptoms (Recalled from Triage Doc. by RN): PATIENT C/O HEADACHE AND SINUS PRESSURE X 2 WEEKS HEENT Symptoms (Recalled from RN notes): Yes Resp Symptoms (Recalled from RN notes): No Skin Symptoms (Recalled from RN notes): No MS Symptoms (Recalled from RN notes): No Functional Status (Recalled from RN notes): WNL History of Present Illness Provider Complaint: Patient states that she has been having headache and sinus pain and pressure for the last two weeks States that she is scheduled for infusion on May 12 States that she has to be off antibiotics for 2 weeks prior so she is wanting a shot if possible Related Data Home Medications Medication Instructions Recorded Confirmed hydrocodone 10 mg-acetaminophen 1 tab PO DAILY 04/26/23 04/26/23 325 mg tablet hydroxyzine HCl 25 mg tablet 25 mg PO DAILY 04/26/23 04/26/23 levothyroxine 25 mcg tablet 25 mcg PO DAILY 04/26/23 04/26/23 Previous Rx's Medication Instructions Recorded azithromycin 250 mg tablet See Rx Instructions PO .COMPLEX 5 04/26/23 (Zithromax Z-Mauro) days #6 tabs Allergies Allergy/AdvReac Type Severity Reaction Status Date / Time duloxetine [DULOXETINE] Allergy Unknown UNKNOWN Verified 11/08/22 14:09 Sulfa (Sulfonamide Allergy Unknown UNKNOWN Verified 11/08/22 14:09 Antibiotics) [SULFA (SULFONAMIDE ANTIBIOTICS)] Worker's Comp Is this a Worker's Comp case?: No [facility] Disclaimer: The information contained in this section may have been updated after the patient was seen, as this information can be updated by other users. Medical History (Updated 04/26/23 @ 17:20 by Elena Butler APRN) Anxiety Asthma Hypertension Thyroid disease Surgical History (Updated 04/26/23 @ 17:02 by Silvana Palacio RN) History of section History of hysterectomy Social History Smoking Status:
== END 2023-04-26 17:45 | disposition home or self-care (01) ==
PROVIDERS: Emergency Provider Nurse Practitioner; PCP Family Medicine
DX: J01.90 Acute sinusitis, unspecified (principal); R51.9 Headache, unspecified; R09.81 Nasal congestion; J45.909 Unspecified asthma, uncomplicated; I10 Essential (primary) hypertension; E03.9 Hypothyroidism, unspecified
CPT/HCPCS: 96372; 99212; 99214; G0463; J0696

== ENCOUNTER 2023-05-06 18:46 | Emergency (ER) | payer MEDICARE, MEDICAID, SELFPAY ==
[2023-05-06 19:00] VITALS: BP 154/98; PULSE 122; RESP 20; TEMP 37.1; O2SAT 98; BMI 33.8
--- NOTE | 2023-05-06 19:06 | XR_ITS ---
PROCEDURE INFORMATION: Exam: XR Chest Exam date and time: 05/06/2023 7:06 PM Age: 57 years old Clinical indication: Cough and shortness of breath; Additional info: Soa/cough TECHNIQUE: Imaging protocol: Radiologic exam of the chest. Views: 2 views. COMPARISON: CR XR CHEST 2V 05/05/2021 4:37 PM FINDINGS: Lungs: Mild atelectasis in the lung bases. No consolidation. Pleural spaces: Unremarkable. No pleural effusion. No pneumothorax. Heart/Mediastinum: Unremarkable. No cardiomegaly. Bones/joints: Unremarkable. IMPRESSION: No acute findings.
--- NOTE | 2023-05-06 19:14 | HMH.EDGENADL ---
Discharge Plan Disposition Patient Disposition: Home, Self-Care Prescriptions Prescriptions: No Action hydrocodone-acetaminophen 10-325 mg tablet 1 tab PO DAILY levothyroxine 25 mcg tablet 25 mcg PO DAILY Patient Comments: TAKE 1 TABLET BY MOUTH ONCE DAILY. hydroxyzine HCl 25 mg tablet 25 mg PO DAILY Patient Comments: TAKE 1 TABLET BY MOUTH NIGHTLY NEEDED FOR ITCHING. DO NOT DRIVE OR OPERATE HEAVY MACHINERY AFTER TAKING azithromycin [Zithromax Z-Mauro] 250 mg tablet See Rx Instructions .ROUTE .COMPLEX 5 Days Qty: 6 0RF Rx Instructions: For 250 mg dose pack: take 500 mg today (day 1), then 250 mg for 4 days (days 2-5) Referrals Follow up/Referrals: Provider,MD Tracy [Primary Care Provider] - See instructions Rah Fair MD [Physician] - See instructions Activity Restrictions/Add. Instructions Additional Instructions/Restrictions: Your symptoms today are consistent with an asthma exacerbation and dehydration most likely secondary to a viral infection. Your chest x-ray was clear with no evidence of pneumonia. Please take your albuterol inhaler 4 puffs every 4 hours over the next 48 hours while awake and then as needed for cough after that. Your steroids are long-acting and you do not need anymore. You may follow-up with primary care doctor as needed. A referral to our copyholder has also been given to you if you like to establish care with our lung doctor here at [place] Clinical Impressions Clinical Impression: Dehydration, Asthma exacerbation, Headache Discharge ED Provider: Echo Mo General Adult HPI General Chief complaint: Shortness of Breath/Dyspnea Stated complaint: chest pain, wheezing Time Seen by Provider: 05/06/23 19:03 Mode of Arrival: Ambulatory Source of Information: Patient Limitations: No Limitations Description of Symptoms (Recalled from ER Triage Doc. by RN): pt to ed c/o chest congestion, cough and chest pressure. pt states she was seen in [facility] weeks ago and was dx with a sinus infection and was given abx and steroids. pt reports no improvement. History of Present Illness HPI narrative: Patient is a 57-year-old female with a history of rheumatoid arthritis who has not had her rituximab in over 4 months presenting today with multiple complaints. States this began 3 weeks ago with what she describes as facial pressure intermaxillary sinuses and frontal sinus and she was told she had a sinus infection was started on steroids and azithromycin though symptoms have somewhat improved but she now has for the last week had the symptoms that have moved into her chest. She describes this as cough some subjective fevers at home and some wheezing. 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 Denies any significant shortness of breath no chest pain. Related Data Home Medications Medication Instructions Recorded Confirmed hydrocodone 10 mg-acetaminophen 1 tab PO DAILY 04/26/23 04/26/23 325 mg tablet hydroxyzine HCl 25 mg tablet 25 mg PO DAILY 04/26/23 04/26/23 levothyroxine 25 mcg tablet 25 mcg PO DAILY 04/26/23 04/26/23 Previous Rx's Medication Instructions Recorded azithromycin 250 mg tablet See Rx Instructions PO .COMPLEX 5 04/26/23 (Zithromax Z-Mauro) days #6 tabs Allergies Allergy/AdvReac Type Severity Reaction Status Date / Time duloxetine [DULOXETINE] Allergy Unknown UNKNOWN Verified 11/08/22 14:09 Sulfa (Sulfonamide Allergy Unknown UNKNOWN Verified 11/08/22 14:09 Antibiotics) [SULFA (SULFONAMIDE ANTIBIOTICS)] [facility] Disclaimer: The information contained in this section may have been updated after the patient was seen, as this information can be updated by other users. Medical History (Updated 05/06/23 @ 20:51 by Echo Mo MD) Anxiety Asthma Hypertension Thyroid disease Surgical History (Updated 04/26/23 @ 17:02 by Silvana Palacio RN) History of larry
--- NOTE | 2023-05-06 19:15 | PC.NURSE ---
pt to radiology
[2023-05-06 19:21] LABS: Basophils # 0.1 K/mm3 (0-0.2); Basophils % 0.9 % (0.1-2.0); Eosinophils # 0.3 K/mm3 (0.0-0.4); Eosinophils % 4.2 % (0.1-12.0); Hematocrit 45.4 % (37.0-47.0); Hemoglobin 15.5 g/dL (12.2-16.2); Lymphocytes # 2.4 K/mm3 (0.7-4.5); Lymphocytes % 34.6 % (10-50); Mean Corpuscular HGB Conc 34.2 g/dL (31.8-35.4); Mean Corpuscular Volume 90.7 fl (81-99); Monocytes # 0.8 K/mm3 (0.1-1.0); Neutrophils # 3.4 K/mm3 (1.8-7.8); Neutrophils % 49.3 % (37.0-80.0); Platelet Count 251 K/mm3 (142-424); Red Blood Count 5.01 M/mm3 (4.20-5.40); Red Cell Distribution Width 12.8 % (11.5-17.5); White Blood Count 6.9 K/mm3 (4.8-10.8)
[2023-05-06 19:22] LABS: Adenovirus,PCR Not Detected (NotDetected); Coronavirus 19, PCR Not Detected (NotDetected); Coronavirus 229E Not Detected (NotDetected); Coronavirus NL63 Not Detected (NotDetected); Coronavirus OC43 Not Detected (NotDetected); Coronovirus HKU1,PCR Not Detected (NotDetected); Human Metapneumovirus Not Detected (NotDetected); Influenza A, PCR Not Detected (NotDetected); Influenza AH1, 2009 Not Detected (NotDetected); Influenza AH1, PCR Not Detected (NotDetected); Influenza AH3,PCR Not Detected (NotDetected); Influenza B, PCR Not Detected (NotDetected); Parainfluenza 1, PCR Not Detected (NotDetected); Parainfluenza 2, PCR Not Detected (NotDetected); Parainfluenza 3, PCR Not Detected (NotDetected); Parainfluenza 4, PCR Not Detected (NotDetected); Rhinovirus/Enterovirus Not Detected (NotDetected)
[2023-05-06 19:23] LABS: Chloride 104 mmol/L (98-107)
[2023-05-06 19:24] LABS: Potassium 4.1 mmoL/L (3.5-5.1); Sodium 140 mmol/L (136-145)
[2023-05-06 19:26] LABS: Alanine Aminotransferase 39 U/L (12-78); Alkaline Phosphatase 79 U/L (38-126); Aspartate Amino Transferase 38 U/L (14-36); Bilirubin,Total 0.5 mg/dl (0.2-1.3); Blood Urea Nitrogen 13 mg/dl (7-17); Creatinine Clearance Estimated 100 mL/min (50-200); Estimated Glomerular Filt Rate 73 ml/min (>60); GFR (African American) 89 ML/MIN (>60)
[2023-05-06 19:27] LABS: Albumin Level 4.7 g/dl (3.5-5.0); Albumin/Globulin Ratio 1.6 (1.1-1.8); Anion Gap 12.1 mEq/L (5-15); Calcium 8.7 mg/dl (8.4-10.2); Carbon Dioxide 28 mmol/L (22.0-30.0); Glucose 108 mg/dl (74-100); Total Protein,Serum 7.7 g/dl (6.3-8.2)
[2023-05-06 19:39] LABS: Lactic Acid 2.4 mmol/L (0.7-2.1)
[2023-05-06 21:02] VITALS: BP 132/91; PULSE 100; RESP 20; TEMP 36.7; O2SAT 95
[2023-05-06 21:26] LABS: Respiratory Syncytial Virus Detected (NotDetected)
[2023-05-06 23:20] LABS: Reflex Lactic Add Lactic Reflex
== END 2023-05-06 21:04 | disposition home or self-care (01) ==
PROVIDERS: Emergency Provider Student in an Organized Health Care Education/Training Program
DX: J45.901 Unspecified asthma with (acute) exacerbation (principal); E86.0 Dehydration; R51.9 Headache, unspecified; M06.9 Rheumatoid arthritis, unspecified; I10 Essential (primary) hypertension; E07.9 Disorder of thyroid, unspecified; R00.0 Tachycardia, unspecified
CPT/HCPCS: 71046; 80053; 83605; 85025; 87040; 87632; 87635; 96361; 96374; 96375; 99285

== ENCOUNTER 2024-10-12 14:53 | Emergency (ER) | payer MEDICARE, MEDICAID, SELFPAY ==
[2024-10-12 15:10] VITALS: BP 166/78; PULSE 102; RESP 17; TEMP 36.8; O2SAT 98; BMI 34.7
--- NOTE | 2024-10-12 15:26 | XR_ITS ---
PROCEDURE INFORMATION: Exam: XR Chest Exam date and time: 10/12/2024 3:39 PM Age: 59 years old Clinical indication: Sternal or substernal pain; Additional info: Presistant prod cough for 4 mn TECHNIQUE: Imaging protocol: Radiologic exam of the chest. Views: 2 views. COMPARISON: CR XR CHEST 2V 05/06/2023 7:06 PM FINDINGS: Lungs: Unremarkable. No consolidation. Pleural spaces: Unremarkable. No pleural effusion. No pneumothorax. Heart/Mediastinum: Unremarkable. No cardiomegaly. Bones/joints: Unremarkable. IMPRESSION: No acute findings.
[2024-10-12 15:37] LABS: Albumin Level 4.5 g/dl (3.5-5.0); Chloride 108 mmol/L (98-107); Potassium 3.7 mmoL/L (3.5-5.1); Sodium 141 mmol/L (136-145)
[2024-10-12 15:38] LABS: Basophils # 0.1 K/mm3 (0-0.2); Basophils % 1.2 % (0.1-2.0); Eosinophils # 0.3 Kmm3 (0.0-0.4); Eosinophils % 3.6 % (0.1-12.0); Hemoglobin 14.3 g/dL (12.2-16.2); Immature Granulocytes # 0.03 10^3uL; Immature Granulocytes % 0.4 %; Lymphocytes # 2.3 K/mm3 (0.7-4.5); Lymphocytes % 33.1 % (10-50); Mean Corpuscular HGB Conc 34.9 g/dL (31.8-35.4); Mean Corpuscular Hemoglobin 30.4 pg (27.0-31.2); Mean Corpuscular Volume 87.2 fl (81-99); Mean Platelet Volume 10.2 fl (7.4-10.4); Monocytes # 0.7 K/mm3 (0.1-1.0); Monocytes % 9.6 % (1.7-9.3); Neutrophils # 3.6 K/mm3 (1.8-7.8); Neutrophils % 52.1 % (37.0-80.0); Nucleated Red Blood Cells # 0 10^3/uL; Nucleated Red Blood Cells % 0 %; Platelet Count 304 K/mm3 (142-424); Red Cell Distribution Width 12.1 % (11.5-17.5); Red Cell Distribution Width-SD 38.7 fL; White Blood Count 6.9 K/mm3 (4.8-10.8)
[2024-10-12 15:40] LABS: Alanine Aminotransferase 30 U/L (12-78); Albumin/Globulin Ratio 1.7 (1.1-1.8); Alkaline Phosphatase 73 U/L (38-126); Anion Gap 9.7 mEq/L (5-15); Aspartate Amino Transferase 27 U/L (14-36); Bilirubin,Total 0.4 mg/dl (0.2-1.3); Blood Urea Nitrogen 14 mg/dl (7-17); Calcium 9.2 mg/dl (8.4-10.2); Carbon Dioxide 27 mmol/L (22.0-30.0); Estimated Glomerular Filt Rate 85 ml/min (>60); GFR (African American) 103 ML/MIN (>60); Globulin 2.7 g/dL (1.3-3.2); Glucose 117 mg/dl (74-100); Total Protein,Serum 7.2 g/dl (6.3-8.2)
[2024-10-12 15:49] LABS: NT Pro Brain Natriuretic Pep. 24.4 pg/mL (0-125)
--- NOTE | 2024-10-12 16:05 | HMH.EDGENADL ---
Discharge Plan Disposition Patient Disposition: Home, Self-Care Chief Complaint: Upper Respiratory Infection Prescriptions Prescriptions: No Action hydrocodone-acetaminophen 10-325 mg tablet 1 tab PO DAILY levothyroxine 25 mcg tablet 25 mcg PO DAILY Patient Comments: TAKE 1 TABLET BY MOUTH ONCE DAILY. hydroxyzine HCl 25 mg tablet 25 mg PO DAILY Patient Comments: TAKE 1 TABLET BY MOUTH NIGHTLY NEEDED FOR ITCHING. DO NOT DRIVE OR OPERATE HEAVY MACHINERY AFTER TAKING azithromycin [Zithromax Z-Mauro] 250 mg tablet See Rx Instructions .ROUTE .COMPLEX 5 Days Qty: 6 0RF Rx Instructions: For 250 mg dose pack: take 500 mg today (day 1), then 250 mg for 4 days (days 2-5) Referrals Follow up/Referrals: Provider,Referral, MD [Primary Care Provider] - See instructions Clinical Impressions Clinical Impression: Chronic cough Print Language Print Language: Kiswahili Discharge ED Provider: Mario Alford General Adult HPI General Chief complaint: Upper Respiratory Infection Stated complaint: cough congestion soa Time Seen by Provider: 10/12/24 15:25 Mode of Arrival: Family Vehicle Source of Information: Patient, Relative and Medical Record Description of Symptoms (Recalled from ER Triage Doc. by RN): Pt c/o persistant productive and hacking cough since Jul. She has been on 2 doses of Azithromycin that has not helped. She has tested negative for covid/flu and the virusus . She reports that laying flat makes the coughing worse. She has tried Delsyn, Mucinex, Nyquil, and Bezonate and the cough continues. She has green/yellow colored sputum At times . Denies any current fever, but she does note night sweats & chills. History of Present Illness HPI narrative: Patient is a 59-year-old female with past medical history of rheumatoid arthritis on infusion therapy, hypertension who presents emergency department for evaluation of chronic cough. Onset was since July, patient is status post azithromycin pack x 2. Worse it is worse with lying down at night, does not have any cardiac history, no chest pain. No other acute complaints at this time. Related Data Home Medications ?Medication ?Instructions ?Recorded ?Confirmed hydrocodone 10 mg-acetaminophen 1 tab PO DAILY 04/26/23 07/24/23 325 mg tablet hydroxyzine HCl 25 mg tablet 25 mg PO DAILY 04/26/23 07/24/23 levothyroxine 25 mcg tablet 25 mcg PO DAILY 04/26/23 07/24/23 Previous Rx's ?Medication ?Instructions ?Recorded azithromycin 250 mg tablet See Rx Instructions PO .COMPLEX 5 04/26/23 (Zithromax Z-Mauro) days #6 tabs Allergies Allergy/AdvReac Type Severity Reaction Status Date / Time duloxetine (DULOXETINE) Allergy Unknown UNKNOWN Verified 07/24/23 13:47 Sulfa (Sulfonamide Allergy Unknown UNKNOWN Verified 07/24/23 13:47 Antibiotics) (SULFA (SULFONAMIDE ANTIBIOTICS)) [facility] Disclaimer: The information contained in this section may have been updated after the patient was seen, as this information can be updated by other users. Medical History Anxiety Asthma Hypertension Thyroid disease Surgical History History of section History of hysterectomy Social History Smoking Status: Never smoker alcohol intake: never current occupational status: other Travel in the last 8 weeks?: None Have you lived/traveled outside US in past 30 days?: No Contact w/someone who lives/traveled outside US past 30 days?: No Exposure to someone with infectious disease in past 14 days?: No Do you have a fever (greater than 100.4 F or 38 C)?: No Have you tested positive for COVID-19?: No Exposed to someone with COVID-19 in past 14 days?: No Do you have a sore throat?: No Do you have a cough?: Yes Do you have any weakness?: No Do you have any diarrhea?: No Are you experiencing any unusual bleeding?: No Do you have any muscle aches/pain?: No Do you have any abdominal pain?: No Are you experiencing loss of taste or smell?: No Other Medical History Have you received the Flu Vaccine for this season: No Have you received the Pneumonia Vaccine: No ROS Obtained: Yes Systems reviewed as appropriate & no additional complaints except as documented Physical Exam General General appearance: alert and in no apparent distress Head Head exam: atraumatic and normocephalic Eye Eye exam: Present PERRL and EOMI ENT ENT exam: Present mucous membranes moist Neck Neck exam: Present normal inspection Chest Chest inspection: Present normal inspection and symmetric chest wall rise Respiratory Respiratory exam: Present normal lung sounds bilaterally; Absent respiratory distress, wheezes or accessory muscle use Cardiovascular Cardiovascular exam: Present normal rhythm and tachycardia Abdominal Exam Abdominal exam: Present soft; Absent tenderness Extremities Exam Extremities exam: Present normal inspection Neurological Exam Neurological exam: Present alert and oriented X3 Psychiatric Psychiatric exam: Present normal affect Skin Skin exam: Present warm and dry Medical Decision Making Medical Records Screening: Per USPSTF and CDC recommendations, given the prevalence of disease in our region, it is our hospital?s policy to screen for HIV and viral Hepatitis for all patients aged 18 and over and those with ongoing risk factors. Tye Inquiry Pt receiving controlled substance: No Vital Signs: 10/12/24 15:10 Temperature 98.2 F Temperature Source Oral Pulse Rate [Right] 102 H Respiratory Rate 17 Blood Pressure [Right Arm] 166/78 H Blood Pressure Mean [Right Arm] 107 Blood Pressure Source [Right Arm] Automatic Cuff 02 Sat by Pulse Oximetry 98 Oxygen Delivery Method Room Air Lab Data Lab Results 10/12/24 15:22: WBC 6.9, RBC 4.70, Hgb 14.3, Hct 41.0, MCV 87.2, MCH 30.4, MCHC 34.9, RDW 12.1, Plt Count 304, MPV 10.2, Neut % (Auto) 52.1, Lymph % (Auto) 33.1, [place] % (Auto) 9.6 H, Eos % (Auto) 3.6, Baso % (Auto) 1.2, Neut # (Auto) 3.6, Lymph # (Auto) 2.3, [place] # (Auto) 0.7, Eos # (Auto) 0.3, Baso # (Auto) 0.1, D-Dimer 0.75 H, Sodium 141, Potassium 3.7, Chloride 108 H, Carbon Dioxide 27, Anion Gap 9.7, BUN 14, Creatinine 0.70, Estimated GFR 85, Est GFR ( Amer) 103, Glucose 117 H, Calcium 9.2, Total Bilirubin 0.4, AST 27, ALT 30, Alkaline Phosphatase 73, Troponin I < 0.01, NT-Pro-B Natriuret Pep 24.4, Total Protein 7.2, Albumin 4.5, Globulin 2.7, Albumin/Globulin Ratio 1.7 10/12/24 15:59: VBG pH 7.45 H, VBG pCO2 37.0, VBG pO2 106.9 H, VBG HCO3 25.2, VBG Total CO2 26.3, VBG O2 Saturation 98.2 H, VBG Base Excess 1.2, VBG Lactic Acid 1.3 10/12/24 15:22 10/12/24 15:22 Orders (Tests/Meds): ED MEDICATIONS Discontinued Medications Generic Name Dose Route Start Last Admin Trade Name Freq PRN Reason Stop Dose Admin Lactated Ringer's 500 mls @ 999 mls/hr 10/12/24 16:15 10/12/24 16:23 Lactated Ringer's 500ml IV 10/12/24 16:45 999 mls/hr .Q31M ONE Administration ORDERS Category Date Time Status CXR 2 view (NOT portable) [XR chest 2V] Stat Exams 10/12/24 15:26 Completed POCUS Point of Care (ER Only) Stat Exams 10/12/24 15:36 Completed Complete Blood Count Auto Diff Stat Lab 10/12/24 15:22 Completed Comprehensive Metabolic Panel Stat Lab 10/12/24 15:22 Completed D-Dimer Stat Lab 10/12/24 15:22 Completed Full Resp Panel w/COVID ([facility]) Routine Lab 10/12/24 16:01 Received HIV Combo Stat Lab 10/12/24 15:56 Ordered Hepatitis C Ab Qual. W/ RFX Stat Lab 10/12/24 15:56 Ordered NT Pro Brain Natriuretic Pep. Stat Lab 10/12/24 15:22 Completed Trop I [Troponin I] Stat Lab 10/12/24 15:22 Completed Troponin I Q3H Lab 10/12/24 19:00 Ordered Troponin I Q3H Lab 10/12/24 22:00 Ordered VBG [Venous Blood Gas] Stat RT 10/12/24 15:59 Completed ECG Data Tracing #1: Independently inter by me rate is 83, rhythm is regular, axis is normal, no ST elevation in anatomical contiguous leads, QTc 425 Medical Decision Narrative: In summary patient is 59-year-old female past medical history described above presents emerged part for evaluation of chronic cough setting of rheumatoid arthritis, hypertension on lisinopril. Patient is hemodynamically stable nontoxic-appearing upon arrival, afebrile, minimal tachycardia. [id number] ultrasound at bedside shows grossly normal ejection fraction no large pericardial effusion. Differential includes postinfectious cough, chronic infectious cough, rheumatic lung disease, heart failure, pulmonary embolism, among others. Workup will be conducted with hematologic labs, D-dimer, VBG, two-view chest x-ray, comprehensive viral panel. Initial workup reviewed by me, normal BNP, gentle crystalloid resuscitation will be conducted given that patient states she has had decreased p.o. intake. Initial workup reviewed by me no significant leukocytosis, pulmonary embolism excluded per years criteria, no ARIK or critical electrolyte abnormality initial troponin undetectably low. Chest x-ray informally interpreted by me no acute lobar opacities or large pneumothorax. On repeat evaluation patient was resting comfortably in bed. Given that she does not have heart failure has tried multiple things outpatient without relief burst dose of steroids of dexamethasone in the emergency department is not unreasonable will be administered. I instructed the patient to follow-up with PCP to take her off of lisinopril and see if this improves symptoms and given her history of rheumatoid arthritis will benefit from following up with pulmonology will be referred to Dr. Fair. Critical Care Critical Care Time Critical Care Time: No
[2024-10-12 16:06] LABS: Lactate Venous 1.3 mmol/L (0.4-2.0); VBG Base Excess 1.2 mmol/L (-2.4-2.3); VBG HCO3 25.2 mmol/L (23-30); VBG Oxygen Saturation 98.2 % (50-70); VBG PH 7.45 mmol/L (7.31-7.41); VBG PO2 106.9 mmol/L (28-40); VBG Total CO2 26.3 mmol/L (23-27)
[2024-10-12 16:12] LABS: Adenovirus,PCR Not Detected (NotDetected); Bordetella Pertussis Not Detected (NotDetected); Chlamydophila Pneumoniae, PCR Not Detected (NotDetected); Coronavirus 19, PCR Not Detected (NotDetected); Coronavirus 229E Not Detected (NotDetected); Coronavirus NL63 Not Detected (NotDetected); Coronavirus OC43 Not Detected (NotDetected); Coronovirus HKU1,PCR Not Detected (NotDetected); Human Metapneumovirus Not Detected (NotDetected); Influenza A, PCR Not Detected (NotDetected); Influenza AH1, 2009 Not Detected (NotDetected); Influenza AH1, PCR Not Detected (NotDetected); Influenza AH3,PCR Not Detected (NotDetected); Influenza B, PCR Not Detected (NotDetected); Mycoplasma Pneumoniae, PCR Not Detected (NotDetected); Parainfluenza 1, PCR Not Detected (NotDetected); Parainfluenza 2, PCR Not Detected (NotDetected); Parainfluenza 3, PCR Not Detected (NotDetected); Parainfluenza 4, PCR Not Detected (NotDetected); Respiratory Syncytial Virus Not Detected (NotDetected); Rhinovirus/Enterovirus Not Detected (NotDetected)
[2024-10-12] MEDS: RINGERS SOLUTION,LACTATED 500 ML 999 ML IV (16:23)
[2024-10-12 16:31] LABS: Troponin I < 0.01 ng/ml (0.00-0.034)
--- NOTE | 2024-10-12 16:35 | ECG_ITS ---
APPROVED REPORT Exam: Resting ECG HR:83 bpm ECG Measurements Heart Rate 83 AXES WY 187 P 61 QRSd 82 QRS 21 QT 385 T 15 QTc 425 Conclusion SINUS RHYTHM LOW QRS VOLTAGE IN PRECORDIAL LEADS [QRS DEFLECTION < 1.0 mV IN CHEST LEADS] BORDERLINE ECG Electronically signed by : KOBY BOSTON, 10/12/2024 20:50:07
[2024-10-12 16:44] LABS: D-Dimer 0.75 ug/mL (0.0-0.5)
[2024-10-12] MEDS: DEXAMETHASONE 4MG/ML 1ML VIAL 10 MG IV (18:05)
[2024-10-12 18:09] VITALS: BP 154/75; PULSE 80; RESP 19; TEMP 36.7; O2SAT 98
[2024-10-12 20:12] LABS: HIV Combo NEGATIVE (Negative)
[2024-10-12 20:19] LABS: Hepatitis C Ab Qual. W/ RFX NEGATIVE (Negative)
== END 2024-10-12 18:15 | disposition home or self-care (01) ==
PROVIDERS: Emergency Provider Emergency Medicine
DX: R05.1 Acute cough (principal); I10 Essential (primary) hypertension; Z11.59 Encounter for screening for other viral diseases; Z11.4 Encounter for screening for human immunodeficiency virus [HIV]
CPT/HCPCS: 0223U; 71046; 80053; 82803; 83880; 84484; 85025; 85378; 86803; 87389; 87633; 93005; 96374; 99285; J1100; J7120

== ENCOUNTER 2025-02-24 11:09 | Outpatient (CLI) | payer MEDICARE, MEDICAID, SELFPAY ==
--- OUTSIDE RECORDS SUMMARY | 2024-12-30 10:06 | XMS_ITS | Encounter Summary ---
Author Organization [place] [address] Care Team Providers Care Label Stamper Name Role Phone Bean Herbert MD Primary Care Provider [phone] Haley Suresh MD Unavailable [phone] Reason for Referral * MRI/CAT Scan (Routine) - Closed Specialty Diagnoses / Procedures Referred By Contac t Referred To Contact Radiology Diagnoses Mild intermittent asthma without complication Chronic cough Procedures CT CHEST WO CONTRAST Bean Herbert MD [address] [place], [place] [id number] [address] Phone: tel: fax: Referral ID Status Reason Start Date Expiration Date Visits Re quested Visits Authorized [id number] Closed 12/16/2024 12/16/2025 1 1 Reason for Visit * MRI/CAT Scan (Routine) - Closed Specialty Diagnoses / Procedures Referred By Contac t Referred To Contact Radiology Diagnoses Mild intermittent asthma without complication Chronic cough Procedures CT CHEST WO CONTRAST Bean Herbert MD [address] [address] Phone: tel: fax: Referral ID Status Reason Start Date Expiration Date Visits Re quested Visits Authorized [id number] Closed 12/16/2024 12/16/2025 1 1 Encounter Details Date Type Department Care Team (Late st Contact Info) Description 12/30/2024 10:06 AM EDT - 12/30/2024 2:28 PM EDT Hospital Encounter [facility] [address] [id number] Bean Herbert MD [address] [facility] [address] [place] [address] Chronic cough Discharge Disposition: Home or Self Care Social History Tobacco Use Types Packs/Day Years Used Date Smoking Tobacco: Never Cigarettes Pipe Cigars Smokeless Tobacco: Never Snuff, Chew Alcohol Use Standard Drinks/Week Comments Never 0 (1 standard drink = 0.6 oz pur e alcohol) PHQ-2 Answer Date Recorded PHQ-2 Total Score 0 07/29/2024 Sexually Active Control Partners Comments Yes Male My Comments No Sex and Gender Information Value Date Recorded Sex Assigned at Not on file Legal Sex Female 6:32 PM EDT Gender Identity Not on file Sexual Orientation Not on file documented as of this encounter Functional Status * Is the person deaf or does he/she have serious difficulty hearing? Answer Date of Assessment Author No 07/29/2024 12:36 PM Adeola Kwong RMA * Is the person blind or does he/she have serious difficulty seeing even when wearing glasses? Answer Date of Assessment Author No 07/29/2024 12:36 PM Adeola Kwong RMA * Does this person have serious difficulty walking or climbing stairs? Answer Date of Assessment Author No 07/29/2024 12:36 PM Adeola Kwong RMA * Does this person have difficulty dressing or bathing? Answer Date of Assessment Author No 07/29/2024 12:36 PM Adeola Kwong RMA * Because of a physical, mental or emotional condition, does this person have difficulty doing errands alone such as visiting a doctor's office or shopping? Answer Date of Assessment Author No 07/29/2024 12:36 PM Adeola Kwong RMA documented as of this encounter Mental Status * Because of a physical, mental or emotional condition, does this person have serious difficulty concentrating, remembering or making decisions? Answer Entry Date Author No 07/29/2024 12:36 PM Adeola Kwong RMA documented in this encounter Medications at Time of Discharge albuterol-ipratropi um (DUO-NEB) 3 mg-0.5 mg(2.5 mg base)/3 mL Inhl Solution for NebulizationIndicat ions:Mild intermittent asthma without complication,Acute bronchitis due to respiratory syncytial virus Take 3 mL by nebulization every 6 hours as needed for Shortness of Breath. 1080 mL 10 5 aspirin 81 mg tabletIndications:H TN (hypertension) Take 1 Tab by mouth daily. 90 Tab 3 1 budesonide-formoter oL (SYMBICORT) 160-4.5 mcg/actuation Inhl HFA Aerosol InhalerIndications: Mild intermittent asthma without complication,Acute bronchitis due to respiratory syncytial virus Inhale 2 Puffs into the lungs 2 times daily. 10.2 Each 5 diphenhydrAMINE (BENADRYL) 50 mg Oral Capsule Take 1 Capsule by mouth daily. 10 Capsule 1 5 ipratropium-albuter ol (COMBIVENT RESPIMAT) 20-100 mcg/actuation Inhl MistIndications:Mil d intermittent asthma without complication Inhale 1 Puff into the lungs every 6 hours as needed. for wheezing 12 g 5 linaCLOtide (LINZESS) 72 mcg Oral CapsuleIndications: Constipation, chronic Take 1 Capsule by mouth daily. 90 Capsule 2 4 loratadine (CLARITIN) 10 mg Oral TabletIndications:M ild intermittent asthma without complication,Acute bronchitis due to respiratory syncytial virus Take 1 Tablet by mouth daily. 90 Tablet 1 5 losartan (COZAAR) 100 mg Oral TabletIndications:E ssential hypertension Take 1 Tablet by mouth 2 times daily. 180 Tablet 3 5 meclizine (ANTIVERT) 25 mg Oral TabletIndications:D izziness TAKE 1 TABLET BY MOUTH 4 TIMES DAILY NEEDED FOR DIZZINESS. 120 Tablet 3 5 Nebulizer Accessories Misc Kit Use 4 times a day prn. 1 Kit 5 omeprazole (PRILOSEC) 20 mg Oral Capsule, Delayed Release(E.C.)Indica tions:Acute superficial gastritis, presence of bleeding unspecified Take 1 Capsule by mouth 2 times daily (before meals). 180 Capsule 2 5 amLODIPine (NORVASC) 5 mg Oral TabletIndications:E ssential hypertension Take 1 Tablet by mouth daily. 90 Tablet 3 5 01/26/20 25 diazePAM (VALIUM) 10 mg Oral TabletIndications:D epression with anxiety Take 1 Tablet by mouth 3 times daily as needed. 90 Tablet 2 5 01/26/20 25 ergocalciferol (DRISDOL) 1,250 mcg (50,000 unit) Oral CapsuleIndications: Vitamin D deficiency Take 1 Capsule by mouth two times a week. 24 Capsule 1 5 01/01/20 25 ergocalciferol (DRISDOL) 1,250 mcg (50,000 unit) Oral CapsuleIndications: Vitamin D deficiency Take 1 Capsule by mouth once a week. 12 Capsule 3 5 01/04/20 25 hydrOXYzine (ATARAX) 25 mg Oral TabletIndications:D ysesthesia of scalp Take 1 Tablet by mouth nightly as needed for Itching. Do not drive or operate heavy machinery after taking 90 Tablet 1 5 01/26/20 25 ibuprofen (ADVIL;MOTRIN) 800 mg Oral TabletIndications:D egeneration of intervertebral disc of lumbar region, unspecified whether pain present Take 1 Tablet by mouth every 8 hours as needed for Pain. 30 Tablet 10 5 01/26/20 25 ketoconazole (NIZORAL) 2 % Top ShampooIndications: Rash Apply topically Three times weekly. 120 mL 1 5 01/26/20 25 LEVOthyroxine (SYNTHROID) 25 mcg Oral TabletIndications:H ypothyroidism (acquired) Take 1 Tablet by mouth daily. 90 Tablet 2 5 01/26/20 25 rosuvastatin (CRESTOR) 40 mg Oral Tablet Take 1 Tablet by mouth daily. 90 Tablet 1 5 01/04/20 25 documented as of this encounter Discharge Disposition Disposition Code Departure Means Destination Home or Self Care documented in this encounter Plan of Treatment Upcoming Encounters Date Type Department Care Team (Late st Contact Info) Description 03/16/2025 1:00 PM EDT Office Visit [facility] [address] [phone] Grover Ware MD [address] [address] 07/04/2025 11:15 AM EST Office Visit [facility] [address] [place] [address] Haley Suresh MD [address] [place] [address] 07/15/2025 9:30 AM EST Appointment [facility] [address] documented as of this encounter Goals Goal Patient Goal Type Associated Problems Recent Progress Patient-Stated? Author Blood Pressure < 140/90 Blood Pressure 143/89( 025 2:06 PM EDT) No Unique Adan RMA Eat better, exercise, reach an ideal body weight General No Kun Gaitan RMA documented as of this encounter Procedures Procedure Name Priority Date/Time Associated Diagnosis Comments CT CHEST WO CONTRAST Routine 12/30/2024 10:33 AM EDT Chronic cough documented in this encounter Results * CT CHEST WO CONTRAST (12/30/2024 10:33 AM EDT) Anatomical Region Laterality Modality Chest Computed Tomogra phy 12/30/2024 10:3 3 AM EDT Impressions 12/30/2024 12:42 PM EDT 1. No acute intrathoracic findings. 2. Right middle lobe nodules measuring 5 mm and 4 mm. No follow-up needed if patient is low-risk (and has no known or suspected primary neoplasm). Non-contrast chest CT can be considered in 12 months if patient is high-risk (Per Fleischner Society guidelines). Narrative 12/30/2024 12:[address] CHEST WITHOUT CONTRAST, 12/30/2024 10:33 AM CLINICAL HISTORY: R05.3-Chronic [id number] COMPARISON: Chest radiograph 08/26/2024. PROCEDURE COMMENTS: Multi-detector CT of the chest with multiplanar reconstructions per protocol. No contrast given. Automated exposure control for dose reduction was used. FINDINGS: There is no airspace consolidation, evidence of diffuse interstitial lung disease, or pleural effusion. Right middle lobe nodules are present measuring 5 mm and 4 mm. The central airways are patent. A small hiatal hernia is noted. There is no intrathoracic lymphadenopathy or acute osseous abnormality. Bean Herbert MD IMG CT ORDERABLES Final Resu lt documented in this encounter Visit Diagnoses Diagnosis Chronic cough Cough documented in this encounter Care Teams Label Stamper Relationship Specialty Start Date End Date Bean Herbert MD [address] [place] [phone] PCP - General 04/12/09 Haley Suresh MD [address] [place] [phone] Internal Medicine-Rheumatology 11/04/22 documented as of this encounter
--- OUTSIDE RECORDS SUMMARY | 2024-12-30 13:30 | XMS_ITS | Encounter Summary ---
Author Organization [facility] Address [address] [place] [address] Care Team Providers Care Senior Account Clerk Name Role Phone Bean Herbert MD Primary Care Provider [phone] Haley Suresh MD Unavailable [phone] Reason for Visit * Reason Comments Rheumatoid Arthritis Encounter Details Date Type Department Care Team (Latest Contact Info) Description 12/30/2024 1:30 PM EDT Office Visit [facility] [address] [place] [address] Haley Suresh MD [address] [place] [address] Rheumatoid arthritis involving multiple sites with positive rheumatoid factor (HCC) (Primary Dx); Primary osteoarthritis of both knees; Vitamin D deficiency; Encounter for long-term (current) use of high-risk medication; Chronic cough Social History Tobacco Use Types Packs/Day Years Used Date Smoking Tobacco: Never Cigarettes Pipe Cigars Smokeless Tobacco: Never Snuff, Chew Tobacco Cessation:Counseling Given: Not Answered Alcohol Use Standard Drinks/Week Comments Never 0 [...] on file documented as of this encounter Last Filed Vital Signs Vital Sign Reading Time Taken Comments Blood Pressure 112/84 12/30/2024 12:35 PM EDT Pulse - - Temperature 36.4 C (97.5 F) 12/30/2024 12:35 PM EDT Respiratory Rate - - Oxygen Saturation - - Inhaled Oxygen Concentration - - Weight 86.2 kg (190 lb) 12/30/2024 12:35 PM EDT Height 157.5 cm (5' 2 ) 12/30/2024 12:35 PM EDT Body Mass Index 34.75 12/30/2024 12:35 PM EDT documented in this encounter Functional Status * Is the [...] Adeola Kwong RMA documented in this encounter Progress Notes * Haley Suresh MD - 12/30/2024 3:04 PM EDTAssociated Problem(s): Rheumatoid arthritis involving multiple sites with positive rheumatoid factor (HCC) PLAN Controlled with Rituxan 1000 mg, 2 doses 2 weeks apart, every 5 months. Since patient is well-controlled, we will explore if we can do maintenance dose of Rituxan 1000 mg q. 5 months single dose. Labs 07/2024 CBC,CMP,Sed normal Imaging X-ray bilateral hands obtained in the vcxgiv72/29/18 and reviewed by me with patient on the same day. MCPs normal joint space without erosions. PIPs normal space. Fifth DIP especially right side withjoint space narrowing suggestive of osteoarthritis. Wrists without erosions or chondrocalcinosis. Lab 03-30-18 +RF, CCP,KARYN,TPO NEG SSA,SSB,Tucker,PLIER WORKER @TB Gold Neg- 10/29/23, 03/2018 @Functional status assessed. Disease activity low. Prognosis good. @Patient cannot take any live vaccinations on Biologics . Patient also understands that if there isan infection, DMARDs need to be held until infection has been resolved. @Patient needs to be up-to-date on all age-appropriate vaccinations. FAILED Unable to tolerate methotrexate. MTX in the past did not completely controlled rheumatoid either. patient was on methotrexate for the first 2-3 years after diagnosis. So far no x-ray evidence of rheumatoid arthritis. Unable to tolerate leflunamide 10 mg daily . * Haley Suresh MD - 12/30/2024 1:30 PM EDT Images from the original note were not included. Subjective Subjective: Patient ID: Corazon Aggarwal is a 59 y.o. female. Chief Complaint Patient presents with Rheumatoid Arthritis HPI: Corazon Aggawral is a 59 y.o.female No red or swollen joints. No significant brush cutter stiffness. She is able to make a fist bilaterally. Continues Rituxan every 4 months. New problem-patient has chronic nonproductive cough which started 07/2024. Denies infections. No dyspnea on exertion. Feels a tickle in her throat. Hoarseness of voice present. Chest x-ray normal. Patient had CT chest and PFTs today-results pending. Bilateral knees without significant pain. Patient had received viscosupplementation both knees fromorthopedics 11/08/2022. Patient uses ibuprofen 800 mg 1 a day with food for further relief. The pain / function / disease activity questionnaire was filled out by the patient and reviewed with me. Refer to flowsheets for full RAPID3. Disease Activity on RAPID 3 = 3.3/10, decreased from 5.3/10 REVIEW OF SYSTEMS The patient denies fever, weight loss, rash, photosensitivity, Raynaud's phenomenon, dry eyes, dry mouth, oral ulcers, sore throat, heartburn, dysphagia, visual changes, nausea, vomiting, abdominal pain, melena, chest pain, cough, shortness of breath, hemoptysis, hematuria, dysuria, numbness, and tingling. See HPI for further details. Review of systems otherwise negative. Past Medical History: Diagnosis Date Anxiety Arthritis Asthma Depression Hypertension Social History Tobacco Use Smoking status: Never Smokeless tobacco: Never Substance Use Topics Alcohol use: Never Family History Problem Relation Age of Onset Hypertension Mother Diabetes Mother Breast Cancer Mother Cancer Mother Arthritis Mother Lung Cancer Father Diabetes Maternal Grandmother Cancer Paternal Grandmother Hypertension Paternal Uncle Allergies Allergen Reactions Cymbalta [Duloxetine] Other (See Comments) h/a h/a Sulfa (Sulfonamide Antibiotics) Outpatient Medications Marked as Taking for the 12/30/24 encounter (Office Visit) with Haley Suresh MD Medication Sig Dispense Refill albuterol-ipratropium (DUO-NEB) 3 mg-0.5 mg(2.5 mg base)/3 mL Inhl Solution for Nebulization Take 3mL by nebulization every 6 hours as needed for Shortness of Breath. 1080 mL 10 amLODIPine (NORVASC) 5 mg Oral Tablet Take 1 Tablet by mouth daily. 90 Tablet 3 aspirin 81 mg tablet Take 1 Tab by mouth daily. 90 Tab 3 budesonide-formoteroL (SYMBICORT) 160-4.5 mcg/actuation Inhl HFA Aerosol Inhaler Inhale 2 Puffs into the lungs 2 times daily. 10.2 Each 0 diazePAM (VALIUM) 10 mg Oral Tablet Take 1 Tablet by mouth 3 times daily as needed. 90 Tablet 2 diphenhydrAMINE (BENADRYL) 50 mg Oral Capsule Take 1 Capsule by mouth daily. 10 Capsule 1 ergocalciferol (DRISDOL) 1,250 mcg (50,000 unit) Oral Capsule Take 1 Capsule by mouth two times a week. 24 Capsule 1 ergocalciferol (DRISDOL) 1,250 mcg (50,000 unit) Oral Capsule Take 1 Capsule by mouth once a week. 12 Capsule 3 HYDROcodone-acetaminophen (NORCO) 10-325 mg Oral Tablet Take 1 Tablet by mouth every 8 hours as needed for Chronic Pain (G89.29). 90 Tablet 0 hydrOXYzine (ATARAX) 25 mg Oral Tablet Take 1 Tablet by mouth nightly as needed for Itching. Do notdrive or operate heavy machinery after taking 90 Tablet 1 ibuprofen (ADVIL;MOTRIN) 800 mg Oral Tablet Take 1 Tablet by mouth every 8 hours as needed for Pain. 30 Tablet 10 ipratropium-albuterol (COMBIVENT RESPIMAT) 20-100 mcg/actuation Inhl Mist Inhale 1 Puff into the lungs every 6 hours as needed. for wheezing 12 g 0 ketoconazole (NIZORAL) 2 % Top Shampoo Apply topically Three times weekly. 120 mL 1 LEVOthyroxine (SYNTHROID) 25 mcg Oral Tablet Take 1 Tablet by mouth daily. 90 Tablet 2 linaCLOtide (LINZESS) 72 mcg Oral Capsule Take 1 Capsule by mouth daily. 90 Capsule 2 loratadine (CLARITIN) 10 mg Oral Tablet Take 1 Tablet by mouth daily. 90 Tablet 1 losartan (COZAAR) 100 mg Oral Tablet Take 1 Tablet by mouth 2 times daily. 180 Tablet 3 meclizine (ANTIVERT) 25 mg Oral Tablet TAKE 1 TABLET BY MOUTH 4 TIMES DAILY NEEDED FOR DIZZINESS. 120 Tablet 3 Nebulizer Accessories Misc Kit Use 4 times a day prn. 1 Kit 0 omeprazole (PRILOSEC) 20 mg Oral Capsule, Delayed Release(E.C.) Take 1 Capsule by mouth 2 times daily (before meals). 180 Capsule 2 rosuvastatin (CRESTOR) 40 mg Oral Tablet Take 1 Tablet by mouth daily. 90 Tablet 1 Objective: Vital Signs: BP 112/84 (BP Location: Left arm, Patient Position: Sitting) Temp 97.5 ??F (36.4 ??C) (Forehead) Ht 5' 2 (1.575 m) Wt 190 lb (86.2 kg) BMI 34.75 kg/m?? Body mass index is 34.75 kg/m??. Physical Exam CONST: no apparent distress EYES: sclera white, conjunctiva moist, no erythema. RESP: with normal respiratory effort SKIN: no visible rashes Neuro: muscle strength normal MSK: right hand second and third MCPs with mild thickening without swelling or redness. Left hand small joints without synovitis. . Patient able to oppose bilateral thumbs easily with other fingers. Patient is able to close third and fourth digits bilaterally. Second and third digits she is unable to completely flex at the PIPs. No inflammation or pain. patient is able to make a closed fist bilaterally. Reversible swan-neck changes involving her hands especially right side. Hand customer project manager normal bilaterally. Bilateral elbows FROM without tenderness. No redness, swelling or warmth. Bilateral shoulders active abduction full, left with tenderness, . Internal rotation is good bilaterally. Bilateral knees without synovitis. Range of motion full without tenderness or instability. Bilateral hips excellent external rotation without tenderness. Assessment and Plan: Diagnoses and all orders for this visit: Rheumatoid arthritis involving multiple sites with positive rheumatoid factor (HCC) (Chronic) Overview: No clinical synovitis. Assessment & Plan: PLAN Controlled with Rituxan 1000 mg, 2 doses 2 weeks apart, every 5 months. Since patient is well-controlled, we will explore if we can do maintenance dose of Rituxan 1000 mg q. 5 months single dose. Labs 07/2024 CBC,CMP,Sed normal Imaging X-ray bilateral hands obtained in the [id number]/29/18 and reviewed by me with patient on the same day. MCPs normal joint space without erosions. PIPs normal space. Fifth DIP especially right side withjoint space narrowing suggestive of osteoarthritis. Wrists without erosions or chondrocalcinosis. Lab 03-30-18 +RF, CCP,KARYN,TPO NEG SSA,SSB,Tucker,PLIER WORKER @TB Gold Neg- 10/29/23, 03/2018 @Functional status assessed. Disease activity low. Prognosis good. @Patient cannot take any live vaccinations on Biologics . Patient also understands that if there isan infection, DMARDs need to be held until infection has been resolved. @Patient needs to be up-to-date on all age-appropriate vaccinations. FAILED Unable to tolerate methotrexate. MTX in the past did not completely controlled rheumatoid either. patient was on methotrexate for the first 2-3 years after diagnosis. So far no x-ray evidence of rheumatoid arthritis. Unable to tolerate leflunamide 10 mg daily . Primary osteoarthritis of both knees (Chronic) Overview: Bilateral knee asymptomatic. Vitamin D deficiency Overview: Vitamin D level 27 ng/mL 11/2024. It has improved from previous value. Vitamin D level was 18.3 ng/mL 07/2024 Continue on twice weekly vitamin D replacement. Encounter for long-term (current) use of high-risk medication Overview: RITUXAN:We discussed the side effects of Rituxan including but not limited to infusion reactions, tumor lysis syndrome, severe skin and mouth reactions, PML , low blood counts and serious infections.Patient expressed understanding. Labs from 03/2024-normal CBC, AST, ALT and creatinine. 11/2023-normal sed rate and CRP. CBC, creatinine and liver function normal. Assessment & Plan: Chronic cough Overview: Non productive cough since 07/2024 Workup in progress for pulmonary causes. Chest x-ray normal. CT chest and PFT pending. Pt has hoarseness of voice / tickle in throat. No infections Has GERD on PPI. ?Could be silent reflux causing cough If lung w/u NEG, consider referral to ENT. Return in about 6 months (around 07/02/2025). * Haley Suresh MD - 12/29/2024 2:33 PM EDTAssociated Problem(s): Encounter for long-term (current) use of high-risk medication documented in this encounter Plan of Treatment Upcoming Encounters Date Type Department Care Team (Late st Contact Info) Description 03/16/2025 1:00 PM EDT Office Visit [facility] [address] [address] Grover Ware MD [address] [address] 07/04/2025 11:15 AM EST Office Visit [facility] [address] [place] [address] Haley Suresh MD [address] [place] [address] 07/15/2025 9:30 AM EST Appointment [place] [address] documented as of this encounter Goals Goal Patient Goal Type Associated Problems Recent Progress Patient-Stated? Author Blood Pressure < 140/90 Blood Pressure 143/89( 025 2:06 PM EDT) No Unique Adan RMA Eat better, exercise, reach an ideal body weight General No Knu Gaitan RMA documented as of this encounter Visit Diagnoses Diagnosis Rheumatoid arthritis involving multiple sites with positive rheumatoid factor (HCC)- Primary Primary osteoarthritis of both knees Primary localized osteoarthrosis, lower leg Vitamin D deficiency Unspecified vitamin D deficiency Encounter for long-term (current) use of high-risk medication Encounter for long-term (current) use of other medications Chronic cough Cough documented in this encounter Care Teams Senior Account Clerk Relationship Specialty Start Date End Date Bean Herbert MD [address] [address] PCP - General 04/12/09 Haley Suresh MD [address] [place] [address] Internal Medicine-Rheumatology 11/04/22 documented as of this encounter
--- OUTSIDE RECORDS SUMMARY | 2024-12-30 14:29 | XMS_ITS | Encounter Summary ---
Author Organization [facility] Address [facility] [place] [address] Care Team Providers Care Chief Clerk Shelter Name Role Phone Bean Herbert MD Primary Care Provider [phone] Haley Suresh MD Unavailable [phone] Reason for Referral * PFT (Routine) - Pending Review Specialty Diagnoses / Procedures Referred By Contac t Referred To Contact Diagnoses Mild intermittent asthma without complication Chronic cough Procedures PULMONARY FUNCTION TEST Bean Herbert MD [address] [facility] [address] [place] [phone] Phone: tel: fax: Referral ID Status Reason Start Date Expiration Date V isits Requested Visits Authorized [id number] Pending Review 12/16/2024 12/16/2025 1 1 Encounter Details Date Type Department Care Team (Late st Contact Info) Description 12/30/2024 2:29 PM EDT - 12/30/2024 11:59 PM EDT Hospital Encounter [facility] [place] [address] Bean Herbert MD [address] [facility] [employer] [address] [place] [phone] Chronic cough Discharge Disposition: Home or [...] week. 12 Capsule 3 5 01/04/20 25 HYDROcodone-acetami nophen (NORCO) 10-325 mg Oral TabletIndications:F ibromyalgia,DDD (degenerative disc disease), lumbar,Degenerative disc disease, lumbar,Primary osteoarthritis of both knees,Osteoarthriti s of both knees, unspecified osteoarthritis type,Rheumatoid arthritis involving knee (HCC) Take 1 Tablet by mouth every 8 hours as needed for Chronic Pain (G89.29). 90 Tablet 5 01/26/20 25 hydrOXYzine (ATARAX) 25 mg Oral TabletIndications:D [...] 1:00 PM EDT Office Visit [facility] [address] [address] Grover Ware MD [address] [address] 07/04/2025 11:15 AM EST Office Visit [facility] [address] [place] [address] Haley Suresh MD [address] [place] [address] 07/15/2025 9:30 AM EST Appointment [place] [address] documented as of this encounter Goals Goal Patient Goal Type Associated Problems Recent Progress Patient-Stated? Author Blood Pressure < 140/90 Blood Pressure 143/89( 025 2:06 PM EDT) No Unique Adan RMA Eat better, exercise, reach an ideal body weight General No Kun Gaitan RMA documented as of this encounter Procedures Procedure Name Priority Date/Time Associated Diagnosis Comments PULMONARY FUNCTION TEST Routine 12/30/2024 2:35 PM EDT Chronic cough documented in this encounter Results * PULMONARY FUNCTION TEST (12/30/2024 2:35 PM EDT) FVC_PRE 2.30 1.97 - 3.49 L 12/30/2024 4:37 PM EDT [facility] FEV1_PRE 2.03 1.56 - 2.76 L 12/30/2024 4:37 PM EDT [facility] FEV1/FVC_PRE 88.36 67.96 - 90.10 % 12/30/2024 4:37 PM EDT [facility] Hb_PRE 13.70 g(Hb)/dL 12/30/2024 4:37 PM EDT [facility] ERV_PRE 0.53 0.25 - 1.49 L 12/30/2024 4:37 PM EDT [facility] RV_PRE 1.76 1.00 - 2.46 L 12/30/2024 4:37 PM EDT [facility] RV%TLC_PRE 42.92 22.95 - 45.65 % 12/30/2024 4:37 PM EDT [facility] TLC_PRE 4.10 3.83 - 5.77 L 12/30/2024 4:37 PM EDT [facility] FVC_Pre%REF 85 % 12/30/2024 4:37 PM EDT [facility] FEV1_Pre%REF 93 % 12/30/2024 4:37 PM EDT [facility] RV_Pre%REF 108 % 12/30/2024 4:37 PM EDT [facility] TLC_Pre%REF 86 % 12/30/2024 4:37 PM EDT [facility] ERV_Pre%REF 70 % 12/30/2024 4:37 PM EDT [facility] 12/30/2024 2:35 PM EDT Impressions [facility] - 12/30/2024 4:37 PM EDT No Obstruction Normal volumes Normal diffusion [facility] Herbert MD PFT ORDERABLES Final Result Performing Organization Address City/State/[facility] Co de Phone Number [facility] [address] [place] [address] documented in this encounter Visit Diagnoses Diagnosis Chronic cough Cough documented in this encounter Care Teams Chief Clerk Shelter Relationship Specialty Start Date End Date Bean Herbert MD [address] [place] [phone] PCP - General 04/12/09 Haley Suresh MD [address] [place] [address] Internal Medicine-Rheumatology 11/04/22 documented as of this encounter
--- OUTSIDE RECORDS SUMMARY | 2025-01-12 08:00 | XMS_ITS | Encounter Summary ---
Author Organization [place] [address] Care Team Providers Care Floor Director Name Role Phone Bean Herbert MD Primary Care Provider [phone] Haley Suresh MD Unavailable [phone] Brianda Turcios RN Unavailable Unavailabl e Reason for Visit * Oncology Medication Prior Authorization (Routine) - Closed Specialty Diagnoses / Procedures Referred By Contac t Referred To Contact Oncology Diagnoses Rheumatoid arthritis involving multiple sites with positive rheumatoid factor (HCC) Procedures MT INJ., RITUXIMAB, 10 MG Haley Suresh MD [address] [place] [address] Phone: tel: fax: [place] [address] Phone: tel: fax: Referral ID Status Reason Start Date Expiration Date Visits Re quested Visits Authorized [id number] Closed 04/30/2024 04/30/2025 1 99 Encounter Details Date Type Department Care Team (Latest Contact Info) Description 01/12/2025 8:00 AM EDT - 01/12/2025 11:59 PM EDT Hospital Encounter [place] [address] Rheumatoid arthritis involving multiple sites with positive rheumatoid factor (HCC) (Primary Dx) Discharge Disposition: Home or Self Care Social [...] Sign Reading Time Taken Comments Blood Pressure 143/89 01/12/2025 2:06 PM EDT Pulse 95 01/12/2025 2:06 PM EDT Temperature 36.8 C (98.2 F) 01/12/2025 1:57 PM EDT Respiratory Rate 16 01/12/2025 2:06 PM EDT Oxygen Saturation 97% 01/12/2025 1:57 PM EDT Inhaled Oxygen Concentration - - Weight 87.3 kg (192 lb 7 oz) 01/12/2025 8:20 AM EDT Height - - Body Mass Index 35.2 12/30/2024 12:35 PM EDT documented in this [...] by mouth daily. 10 Capsule 1 5 ergocalciferol (DRISDOL) 1,250 mcg (50,000 unit) Oral CapsuleIndications: Vitamin D deficiency Take 1 Capsule by mouth once a week. 12 Capsule 3 5 ipratropium-albuter ol (COMBIVENT RESPIMAT) 20-100 mcg/actuation [...] daily (before meals). 180 Capsule 2 5 rosuvastatin (CRESTOR) 20 mg Oral TabletIndications:H yperlipidemia with target LDL less than 100 Take 1 Tablet by mouth nightly. 90 Tablet 3 5 amLODIPine (NORVASC) 5 mg Oral TabletIndications:E ssential hypertension Take 1 Tablet by mouth daily. 90 Tablet 3 5 01/26/20 25 diazePAM (VALIUM) 10 mg Oral TabletIndications:D epression with anxiety Take 1 Tablet by mouth 3 times daily as needed. 90 Tablet 2 5 01/26/20 25 HYDROcodone-acetami nophen (NORCO) 10-325 mg Oral [...] times weekly. 120 mL 1 5 01/26/20 LEVOthyroxine (SYNTHROID) 25 mcg Oral TabletIndications:H ypothyroidism (acquired) Take 1 Tablet by mouth daily. 90 Tablet 2 5 01/26/20 25 documented as of this encounter Discharge Disposition Disposition Code Departure Means Destination Home or Self Care documented in this encounter Miscellaneous Notes * Patient Instructions - Brianda Turcios RN - 01/12/2025 8:00 AM EDT [facility] Discharge Instructions Thank you for entrusting the [facility] with your care. We hope you are pleased with your outpatient care and services. Because we are most concerned with your health, we suggest you carefully read the following discharge instructions: Your Discharge Instructions: MEDICATION INSTRUCTIONS: Treatment received today: Orders Placed This Encounter Comprehensive Metabolic Panel CBC WITH DIFF Sedimentation Rate Automated C-Reactive Protein Lab instructions Physician Communication Order Physician Communication Order Physician Communication Order acetaminophen (TYLENOL) tablet 650 mg diphenhydrAMINE (BENADRYL) injection 25 mg methylPREDNISolone sodium succinate (Solu-MEDROL) injection 100 mg riTUXimab (RITUXAN) 1,000 mg in sodium chloride 0.9 % 453 mL chemo infusion 0.9 % NaCl infusion Reviewed medications administered today and possible side effects Dizziness and sleepiness are possible side effects of pain medication. When taking pain medications, do not drink alcohol or drive. ACTIVITY INSTRUCTIONS: Rest today, increase activity as tolerated. DIET INSTRUCTIONS: Resume home diet FOLLOW-UP CARE: Call your doctor for a follow-up appointment: Notify physician for complications such as: Fever over 101*, Rash, Hives, difficulty breathing, unrelieved nausea or pain, redness or swelling in one limb greater than the other, constipation, diarrhea, bleeding Please contact your physician if you have problems related to your procedure or if symptoms persistor worsen. If physician is unavailable, go to the Emergency Room. If you develop any of the following : nausea, vomiting, fatigue, fever of 100.4 or higher, diarrhea, pain or any signs or symptoms of infection DON'T WAIT, PLEASE CALL US FIRST [phone]. [FOR URGENT ISSUES PLEASE DO NOT LEAVE A MESSAGE, FOLLOW PROMPTS TO THE DOCTOR FOREST FIRE LOOKOUT] For Gynecology / Oncology call : [phone] Our hours of operation are Friday - Friday 8:00 AM - 4:30 PM. [facility] [place] [address] [address] [place] [address] [place], [place] [id number] [place] [id number] Results for orders placed or performed during the hospital encounter of 01/12/25 COMPREHENSIVE METABOLIC PANEL Result Value Ref Range Sodium 141 136 - 145 mmol/L Potassium 3.9 3.5 - 5.0 mmol/L Chloride 105 98 - 107 mmol/L Total CO2 22 22 - 29 mmol/L Anion Gap 14 7 - 16 mmol/L Calcium 9.0 8.8 - 10.4 mg/dL Glucose Lvl 130 (H) 70 - 99 mg/dL BUN 11 8 - 23 mg/dL Creatinine 0.60 0.51 - 1.30 mg/dL Albumin 4.3 3.2 - 4.6 gm/dL Total Protein 6.8 6.4 - 8.3 gm/dL Bili Total 0.4 0.2 - 1.3 mg/dL ALT 21 <=41 U/L AST 20 <=40 U/L Alk Phos 87 36 - 123 U/L eGFR (CKD-EPIcr 2020) 102 >=60 mL/min/1.73 m2 CBC WITH DIFF Result Value Ref Range WBC 12.4 (H) 3.7 - 10.3 x10(3)/mcL RBC 4.43 3.90 - 5.20 x10(6)/mcL Hgb 13.4 11.2 - 15.7 g/dL Hct 39.7 34.0 - 45.0 % MCV 89.6 80.0 - 100.0 fL MCH 30.2 26.0 - 34.0 pg MCHC 33.8 30.7 - 35.5 g/dL RDW 12.5 <=14.9 % Platelet 217 155 - 369 x10(3)/mcL MPV 9.9 8.8 - 12.5 fL Neut # Prelim 9.6 (H) 1.6 - 6.1 x10(3)/mcL Neut Percent 77.3 % Imm Gran% 0.3 % Lymph Percent 13.6 % Milam Percent 6.9 % Eos Percent 1.7 % Baso Percent 0.2 % Neut # 9.6 (H) 1.6 - 6.1 x10(3)/mcL IMMGRAN# 0.0 0.0 - 0.1 x10(3)/mcL Lymph # 1.7 1.2 - 3.9 x10(3)/mcL Milam # 0.9 0.3 - 0.9 x10(3)/mcL Eos# 0.2 0.0 - 0.5 x10(3)/mcL Baso # 0.0 0.0 - 0.1 x10(3)/mcL SEDIMENTATION RATE AUTOMATED Result Value Ref Range Sed Rate 8 0 - 30 mm/hr C-REACTIVE PROTEIN Result Value Ref Range CRP 7.87 (H) <=5.00 mg/L documented in this encounter Plan of Treatment Upcoming Encounters Date Type Department Care Team (Late st Contact Info) Description 03/16/2025 1:00 PM EDT Office Visit [facility] [address] [address] Grover Ware MD [address] [address] 07/04/2025 11:15 AM EST Office Visit [facility] [address] [place] [address] Haley Suresh MD [address] [place] [address] 07/15/2025 9:30 AM EST Appointment [place] [address] documented as of this encounter Goals Goal Patient Goal Type Associated Problems Recent Progress Patient-Stated? Author Blood Pressure < 140/90 Blood Pressure 143/89( 025 2:06 PM EDT) No Unique Adan RMA Eat better, exercise, reach an ideal body weight General No Kun Gaitan RMA documented as of this encounter Procedures Procedure Name Priority Date/Time Associated Diagnosis Comments SEDIMENTATION RATE AUTOMATED CECILE 01/12/2025 8:44 AM EDT Rheumatoid arthritis involving multiple sites with positive rheumatoid factor (HCC) CBC WITH DIFF STAT 01/12/2025 8:44 AM EDT Rheumatoid arthritis involving multiple sites with positive rheumatoid factor (HCC) C-REACTIVE PROTEIN CECILE 01/12/2025 8 :44 AM EDT Rheumatoid arthritis involving multiple sites with positive rheumatoid factor (HCC) COMPREHENSIVE METABOLIC PANEL CECILE 01/12/2025 8:44 AM EDT Rheumatoid arthritis involving multiple sites with positive rheumatoid factor (HCC) documented in this encounter Results * (ABNORMAL) C-REACTIVE PROTEIN (01/12/2025 8:44 AM EDT) CRP 7.87(H) <=5.00 mg/L 01/12/2025 9:31 AM EDT [facility] Blood VENOUS BLOOD / Unknown Venipuncture / Unknown 01/12/2025 8:44 AM EDT 01/12/2025 8:49 AM EDT us Haley Suresh MD CHEMISTRY ORDERABLES Final Re sult [facility] ([facility]) [address] [facility] , [place] [address] * SEDIMENTATION RATE AUTOMATED (01/12/2025 8:44 AM EDT) Sed Rate 8 0 - 30 mm/hr 01/12/2025 9:02 AM EDT [facility] ([facility]) Blood VENOUS BLOOD / Unknown Venipuncture / Unknown 01/12/2025 8:44 AM EDT 01/12/2025 8:49 AM EDT us Haley Suresh MD HEMATOLOGY ORDERABLES Final R esult [facility], [facility] [address] [facility], [place] [address] * (ABNORMAL) CBC WITH DIFF (01/12/2025 8:44 AM EDT) WBC 12.4(H) 3.7 - 10.3 x10(3)/mc L 01/12/2025 8:54 AM EDT [facility] RBC 4.43 3.90 - 5.20 x10(6)/mc L 01/12/2025 8:54 AM EDT [facility] Hgb 13.4 11.2 - 15.7 g/dL 01/12/2025 8:54 AM EDT [facility] Hct 39.7 34.0 - 45.0 % 01/12/2025 8:54 AM EDT [facility] MCV 89.6 80.0 - 100.0 fL 01/12/2025 8:54 AM EDT [facility] MCH 30.2 26.0 - 34.0 pg 01/12/2025 8:54 AM EDT [facility] MCHC 33.8 30.7 - 35.5 g/dL 01/12/2025 8:54 AM EDT [facility] RDW 12.5 <=14.9 % 01/12/2025 8:54 AM EDT [facility] Platelet 217 155 - 369 x10(3)/mc L 01/12/2025 8:54 AM EDT [facility] MPV 9.9 8.8 - 12.5 fL 01/12/2025 8:54 AM EDT [facility] Neut # Prelim 9.6(H) 1.6 - 6.1 x10(3)/mc L 01/12/2025 8:54 AM EDT [facility] Comment:Preliminary automate d absolute neutrophil count. Value may change if manual differential is indicated. Neut Percent 77.3 % 01/12/2025 8:54 AM EDT [facility] Comment:Neutrophils equals s egs plus bands Imm Gran% 0.3 % 01/12/2025 8:54 AM EDT [facility] Comment:Automated count of m etamyelocytes, myelocytes and promyelocytes. Lymph Percent 13.6 % 01/12/2025 8:54 AM EDT [facility] Milam Percent 6.9 % 01/12/2025 8:54 AM EDT [facility] Eos Percent 1.7 % 01/12/2025 8:54 AM EDT [facility] Baso Percent 0.2 % 01/12/2025 8:54 AM EDT [facility] Neut # 9.6(H) 1.6 - 6.1 x10(3)/mc L 01/12/2025 8:54 AM EDT [facility] Comment:Neutrophils equals s egs plus bands IMMGRAN# 0.0 0.0 - 0.1 x10(3)/mc L 01/12/2025 8:54 AM EDT [facility] Comment:Automated count of m etamyelocytes, myelocytes and promyelocytes. An absolute IG <0.1 is reported as 0.0. Lymph # 1.7 1.2 - 3.9 x10(3)/mc L 01/12/2025 8:54 AM EDT [facility] Milam # 0.9 0.3 - 0.9 x10(3)/mc L 01/12/2025 8:54 AM EDT [facility] Eos# 0.2 0.0 - 0.5 x10(3)/mc L 01/12/2025 8:54 AM EDT [facility] Baso # 0.0 0.0 - 0.1 x10(3)/mc L 01/12/2025 8:54 AM EDT [facility] Blood VENOUS BLOOD / Unknown Venipuncture / Unknown 01/12/2025 8:44 AM EDT 01/12/2025 8:49 AM EDT us Haley Suresh MD HEMATOLOGY ORDERABLES Final R esult [facility] [address] [place] [address] * (ABNORMAL) COMPREHENSIVE METABOLIC PANEL (01/12/2025 8:44 AM EDT) Sodium 141 136 - 145 mmol/L [facility]/12[facility]2025 9[facility] Potassium 3.9 3.5 - 5.0 mmol/L 01/12/2025 9:07 [facility] Chloride 105 98 - 107 mmol/L 01/12/2025 9:07 AM EDT [facility] Total CO2 22 22 - 29 mmol/L 01/12/2025 9:07 [facility] Anion Gap 14 7 - 16 mmol/L 01/12/2025 9:07 AM [facility] Calcium 9.0 8.8 - 10.4 mg/dL 01/12/2025 9:07 [facility] Glucose Lvl 130(H) 70 - 99 mg/dL 01/12/2025 9:07 AM [facility] BUN 11 8 - 23 mg/dL 01/12/2025 9:07 AM [facility] Creatinine 0.60 0.51 - 1.30 mg/dL 01/12/2025 9:07 [facility] Albumin 4.3 3.2 - 4.6 gm/dL 01/12/2025 9:07 AM [facility] Total Protein 6.8 6.4 - 8.3 gm/dL 01/12/2025 9:07 AM [facility] Bili Total 0.4 0.2 - 1.3 mg/dL 01/12/2025 9:07 AM [facility] ALT 21 <=41 U/L 01/12/2025 9:07 AM [facility] AST 20 <=40 U/L 01/12/2025 9:07 AM [facility] Alk Phos 87 36 - 123 U/L 01/12/2025 9:07 AM [facility] eGFR (CKD-EPIcr 2020) 102 >=60 mL/min/1.7 3 m2 01/12/2025 9:07 AM [facility] Comment:Estimated GFR was ca lculated using the CKD-EPIcr (2020) equation refit without race. The equation is recommended by the [employer] - [employer] [employer]ph[employer] Task Force. Blood VENOUS BLOOD / Unknown Venipuncture / Unknown 01/12/2025 8:44 AM EDT 01/12/2025 8:49 AM EDT us Haley Suresh MD CHEMISTRY ORDERABLES Final Re sult [facility] [address] [place], [place] [id number] documented in this encounter Visit Diagnoses Diagnosis Rheumatoid arthritis involving multiple sites with positive rheumatoid factor (HCC)- Primary documented in this encounter Administered Medications Inactive Administered Medications - up to 1 most recent administrations Medication Order MAR Action Action Date Dose Rate Site 0.9 % NaCl infusion Intravenous, at 30 mL/hr, CONTINUOUS, Starting on Fri01/12/25 at 0900, Until Fri01/13/25 at 0409, For linen manager during infusion., Dx: 1. Rheumatoid arthritis involving multiple sites with positive rheumatoid factor (HCC)Indications:Rheumatoid arthritis involving multiple sites with positive rheumatoid factor (HCC) New Bag 01/12/2025 9:00 AM EDT 30 mL/hr acetaminophen (TYLENOL) tablet 650 mg 650 mg, Oral, ONCE, 1 dose, On Fri01/12/25 at 0830, Maximum adult dose of acetaminophen is 4000 mg from all sources in 24 hours., Dx: 1. Rheumatoid arthritis involving multiple sites with positive rheumatoid factor (HCC)Indications:Rheumatoid arthritis involving multiple sites with positive rheumatoid factor (HCC) Given 01/12/2025 9:01 AM EDT 650 mg diphenhydrAMINE (BENADRYL) injection 25 mg 25 mg, Intravenous, ONCE, 1 dose, On Fri01/12/25 at 0830, Dx: 1. Rheumatoid arthritis involving multiple sites with positive rheumatoid factor (HCC)Indications:Rheumatoid arthritis involving multiple sites with positive rheumatoid factor (HCC) Given 01/12/2025 9:07 AM EDT 25 mg methylPREDNISolone sodium succinate (Solu-MEDROL) injection 100 mg 100 mg, Intravenous, ONCE, 1 dose, On Fri01/12/25 at 0830, Dx: 1. Rheumatoid arthritis involving multiple sites with positive rheumatoid factor (HCC)Indications:Rheumatoid arthritis involving multiple sites with positive rheumatoid factor (HCC) Given 01/12/2025 9:02 AM EDT 100 mg riTUXimab (RITUXAN) 1,000 mg in sodium chloride 0.9 % 453 mL chemo infusion 1,000 mg, Intravenous, at 25-200 mL/hr, ONCE, 1 dose, On Fri01/12/25 at 0930, Initial infusion (each 4 to 6 month infusion starts here): Start rate of 50 mg/hr (25 mL/hr); if there is no reaction, increase the rate by 50 mg/hr (25 mL/hr) increments every 30 minutes, to a maximum rate of 400 mg/hr (200 mL/hr). Total Volume = 500 mL., Dx: 1. Rheumatoid arthritis involving multiple sites with positive rheumatoid factor (HCC)Indications:Rheumatoid arthritis involving multiple sites with positive rheumatoid factor (HCC) Rate/Dose Change 01/12/2025 1:07 PM EDT 200 mL/hr documented in this encounter Care Teams Floor Director Relationship Specialty Start Date End Date Bean Herbert MD [address] [place] [phone] PCP - General 04/12/09 Haley Suresh MD [address] [place] [address] Internal Medicine-Rheumatology 11/04/22 Brianda Turcios RN Registered Nurse Infusion Therapy 01/12/25 01/12/25 documented as of this encounter
--- OUTSIDE RECORDS SUMMARY | 2025-02-02 10:33 | XMS_ITS | Encounter Summary ---
Author Organization [facility] [place] [address] Care Team Providers Care Outsole Molder Name Role Phone Bean Herbert MD Primary Care Provider [phone] Haley Suresh MD Unavailable [phone] Encounter Details Date Type Department Care Team (Latest Contact Info) Description 02/02/2025 10:33 AM EDT - 02/02/2025 11:59 PM EDT Hospital Encounter [facility] [address] [place], [place] [id number] Chronic cough Discharge Disposition: Home or Self [...] lungs 2 times daily. 10.2 Each 5 diazePAM (VALIUM) 10 mg Oral TabletIndications:D epression [...] as needed. for wheezing 12 g 5 ketoconazole (NIZORAL) 2 % Top ShampooIndications: Rash Apply topically Three times weekly. 120 mL 1 5 LEVOthyroxine (SYNTHROID) 25 mcg Oral TabletIndications:H [...] by mouth nightly. 90 Tablet 3 5 HYDROcodone-acetami nophen (NORCO) 10-325 mg Oral TabletIndications:F [...] needed for Pain. 30 Tablet 10 5 02/25/20 25 documented as of this encounter Discharge Disposition Disposition Code Departure Means Destination Home or Self Care documented in this encounter Plan of Treatment Upcoming Encounters Date Type Department Care Team (Late st Contact Info) Description 03/16/2025 1:00 PM EDT Office Visit [facility]ology [facility] [address] [address] Grover Ware MD [address] [phone] 07/04/2025 11:15 AM EST Office Visit [facility] [address] [place] [address] Haley Suresh MD [address] [place] [phone] 07/15/2025 9:30 AM EST Appointment [place] [address] documented as of this encounter Goals Goal Patient Goal Type Associated Problems Recent Progress Patient-Stated? Author Blood Pressure < 140/90 Blood Pressure 143/89( 025 2:06 PM EDT) Unique Headley, RMA Eat better, exercise, reach an ideal [...] X-RAY, 02/02/2025 10:49 AM CLINICAL HISTORY: R05.3-Chronic [id number] COMPARISON: 08/26/2024 PROCEDURE COMMENTS: Frontal and lateral views of the chest. FINDINGS: Heart and mediastinal contours within normal limits for technique. No active failure, pneumonia, or visible effusion. No visible pneumothorax. Procedure Note Bartolo Milan MD - 02/02/2025 PA AND LATERAL CHEST X-RAY, 02/02/2025 10:49 AM CLINICAL HISTORY: R05.3-Chronic [id number] COMPARISON: 08/26/2024 PROCEDURE COMMENTS: Frontal and lateral [...] Cough documented in this encounter Care Teams Outsole Molder Relationship Specialty Start Date End Date Bean Herbert MD [address] [place] [phone] PCP - General 04/12/09 Haley Suresh MD [address] [place] [address] Internal Medicine-Rheumatology 11/04/22 documented as of this encounter
--- NOTE | 2025-02-24 11:17 | XR_ITS ---
FINAL REPORT CLINICAL HISTORY: SOB cough cp COMPARISON: 05/05/2021 FINDINGS: PA and lateral views of the chest were obtained. The cardiac and mediastinal silhouettes are within normal limits. The lungs are clear. There is no pleural effusion or pneumothorax. No acute osseous abnormality is identified. IMPRESSION: No radiographic evidence of acute cardiac or pulmonary disease. Reviewed, Interpreted and Dictated by Juanis Haines MD Transcribed by Donna Juan Authenticated and [facility]
--- OUTSIDE RECORDS SUMMARY | 2025-02-24 11:22 | XMS_ITS | Encounter Summary ---
Author Organization [place] [address] Care Team Providers Care Salsa Dance Instructor Name Role Phone Bean Herbert MD Primary Care Provider [phone] Haley Suresh MD Unavailable [phone] Reason for Visit * Reason Onset Date Comments Medication Refill 01/25/2025 Encounter Details Date Type Department Care Team (Late st Contact Info) Description 01/25/2025 Refill [facility] [address] [place] [address] Bean Herbert MD [address] [address] Medication Refill Social History Tobacco Use Types Packs/Day Years [...] Assessment Author No 07/29/2024 12:36 PM Adeola Kwong, VI * Is the person blind or does he/she have serious difficulty seeing even when wearing glasses? Answer Date of Assessment Author No 07/29/2024 12:36 PM Adeola Kwong, VI * Does this person have serious difficulty walking or climbing stairs? Answer Date of Assessment Author No 07/29/2024 12:36 PM Adeola Kwong VI * Does this person have difficulty dressing or bathing? Answer Date of Assessment Author No 07/29/2024 12:36 PM Adeola Kwong, VI * Because of a physical, mental or emotional condition, does this person have difficulty doing errands alone such as visiting a doctor's office or shopping? Answer Date of Assessment Author No 07/29/2024 12:36 PM Adeola Kwong, VI documented as of this encounter Mental Status * Because of a physical, mental or emotional condition, does this person have serious difficulty concentrating, remembering or making decisions? Answer Entry Date Author No 07/29/2024 12:36 PM Adeola Kwong, VI documented in this encounter Ordered Prescriptions Prescription Sig Dispense Quantity Refills Last Filled Start Date End Date diazePAM (VALIUM) 10 mg Oral TabletIndications:De pression with anxiety Take 1 Tablet by mouth 3 times daily as needed. 90 Tablet 2 01/26/2025 hydrOXYzine (ATARAX) 25 mg Oral TabletIndications:Dy sesthesia of scalp Take 1 Tablet by mouth nightly as needed for Itching. Do not drive or operate heavy machinery after taking 90 Tablet 11 01/26/2025 amLODIPine (NORVASC) 5 mg Oral TabletIndications:Es sential hypertension Take 1 Tablet by mouth daily. 90 Tablet 3 01/26/2025 LEVOthyroxine (SYNTHROID) 25 mcg Oral TabletIndications:Hy pothyroidism (acquired) Take 1 Tablet by mouth daily. 90 Tablet 3 01/26/2025 ibuprofen (ADVIL;MOTRIN) 800 mg Oral TabletIndications:De generation of intervertebral disc of lumbar region, unspecified whether pain present Take 1 Tablet by mouth every 8 hours as needed for Pain. 30 Tablet 10 01/26/2025 documented in this encounter Miscellaneous Notes * Telephone Encounter - Adeola Galloway RMA - 01/26/2025 8:11 AM EDT 01/20/12 -Controlled Substance Treatment Agreement. 01/20/12 -Contract for Chronic Benzodiazepines. 01/20/12 -Contract for Chronic Opioids. 04/10/12 -SOAPP Score- 3 UDS OK 08/19/22 UDS OK 09/15/23 UDS OK 07/29/2024 11/18/[address] Herbert LF:12/24/2024 JOHN:12/16/2024 documented in this encounter Plan of Treatment Upcoming Encounters Date Type Department Care Team (Late st Contact Info) Description 03/16/2025 1:00 PM EDT Office Visit [facility]ology [facility] [address] [phone] Grover Ware MD [address] [phone] 07/04/2025 11:15 AM EST Office Visit [facility] [address] [place] [address] Haley Suresh MD [address] [place] [address] 07/15/2025 9:30 AM EST Appointment [place] [address] documented as of this encounter Goals Goal Patient Goal Type Associated Problems Recent Progress Patient-Stated? Author Blood Pressure < 140/90 Blood Pressure 143/89( 025 2:06 PM EDT) No Unique Adan RMA Eat better, exercise, reach an ideal body weight General No Kun Gaitan RMA documented as of this encounter Visit Diagnoses Diagnosis Hypothyroidism (acquired) Unspecified hypothyroidism Essential hypertension Unspecified essential hypertension Dysesthesia of scalp Depression with anxiety Dysthymic disorder Degeneration of intervertebral disc of lumbar region, unspecified whether pain present documented in this encounter Discontinued Medications Medication Sig Discontinue Reason Start Date End Da te LEVOthyroxine (SYNTHROID) 25 mcg Oral TabletIndications:Hypothy roidism (acquired) Take 1 Tablet by mouth daily. Reorder 11/11/2024 01/25/2025 amLODIPine (NORVASC) 5 mg Oral TabletIndications:Essenti al hypertension Take 1 Tablet by mouth daily. Reorder 11/11/2024 01/25/2025 hydrOXYzine (ATARAX) 25 mg Oral TabletIndications:Dysesth esia of scalp Take 1 Tablet by mouth nightly as needed for Itching. Do not drive or operate heavy machinery after taking Reorder 11/11/2024 01/25/2025 ibuprofen (ADVIL;MOTRIN) 800 mg Oral TabletIndications:Degener ation of intervertebral disc of lumbar region, unspecified whether pain present Take 1 Tablet by mouth every 8 hours as needed for Pain. Reorder 12/30/2024 01/25/2025 diazePAM (VALIUM) 10 mg Oral TabletIndications:Depress ion with anxiety Take 1 Tablet by mouth 3 times daily as needed. Reorder 12/08/2024 01/25/2025 documented as of this encounter Care Teams Salsa Dance Instructor Relationship Specialty Start Date End Date Bean Herbert MD [address] [place] [phone] PCP - General 04/12/09 Haley Suresh MD [address] [place] [address] Internal Medicine-Rheumatology 11/04/22 documented as of this encounter
--- OUTSIDE RECORDS SUMMARY | 2025-02-24 11:22 | XMS_ITS | Encounter Summary ---
Author Organization [place] [address] Care Team Providers Care Hot Mix Operator Name Role Phone Bean Herbert MD Primary Care Provider [phone] Haley Suresh MD Unavailable [phone] Reason for Visit * Reason Onset Date Comments Prior Authorization 01/26/2025 TRUXIMA Encounter Details Date Type Department Care Team (Late st Contact Info) Description 01/26/2025 [facility]phone [facility] [place] [address] Haley Suresh MD [address] [place] [address] Prior Authorization (TRUX) Social History Tobacco Use Types Packs/Day Years [...] Kwong, VI * Does this person have difficulty [...] Adeola Kwong, VI documented in this encounter Miscellaneous Notes * Telephone Encounter - Haley Suresh MD - 01/26/2025 2:47 PM EDT PLAN is now RITUXAN * Telephone Encounter - Trina Mcgraw CNA - 01/26/2025 1:55 PM EDTSummary: PA FOR TRUXIMA Eyad, I am working on the PA for Truxima. Previously we had authorized Rituxan. Is the patient switching to Truxima. If not, the plan needs to reflect Rituxan. Please let us know how to move forward. Thank you, Trina Hoyos [facility] Precert Specialist documented in this encounter Plan of Treatment Upcoming Encounters Date Type Department Care Team (Late st Contact Info) Description 03/16/2025 1:00 PM EDT Office Visit [facility] [address] [facility] [address] [place] [address] Grover Ware MD 651 [facility] [address] [place] [address] 07/04/2025 11:15 AM EST Office Visit [facility] [address] [place] [address] Haley Suresh MD [address] [place] [address] 07/15/2025 9:30 AM EST Appointment [place] [address] documented as of this encounter Goals Goal Patient Goal Type Associated Problems Recent Progress Patient-Stated? Author Blood Pressure < 140/90 Blood Pressure 143/89( 025 2:06 PM EDT) No Unique Adan, RMA Eat better, exercise, reach an ideal body weight General No Kun Gaitan RMA documented as of this encounter Visit Diagnoses Not on filedocumented in this encounter Care Teams Hot Mix Operator Relationship Specialty Start Date End Date Bean Herbert MD [address] [place] [phone] PCP - General 04/12/09 Haley Suresh MD [address] [place] [address] Internal Medicine-Rheumatology 11/04/22 documented as of this encounter
--- OUTSIDE RECORDS SUMMARY | 2025-02-24 11:22 | XMS_ITS | Encounter Summary ---
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 Answer Date of Assessment Author No 07/29/2024 12:36 PM Adeola Kwong Cecelia VI * Does this person have serious difficulty walking or climbing stairs? Answer Date of Assessment Author No 07/29/2024 12:36 PM CRISSY Galloway Adeola Rai VI * Does this person have difficulty dressing or bathing? Answer Date of Assessment Author No 07/29/2024 12:36 PM Adeola Kwong Cecelia VI * Because of a physical, mental or emotional condition, does this person have difficulty doing errands alone such as visiting a doctor's office or shopping? Answer Date of Assessment Author No 07/29/2024 12:36 PM CRISSY Galloway Adeola Rai VI documented as of this encounter Mental Status * Because of a physical, mental or emotional condition, does this person have serious difficulty concentrating, remembering or making decisions? Answer Entry Date Author No 07/29/2024 12:36 PM CRISSY Galloway Adeola Cecelia VI documented in this encounter Plan of Treatment Upcoming Encounters Date Type Department Care Team (Late st Contact Info) Description 03/16/2025 1:00 PM EDT Office Visit [facility] Pulmonology [facility] [address] [phone] Grover Ware MD [address] [address] 07/04/2025 11:15 AM EST Office Visit [facility] [address] [place] [address] Haley Suresh MD [address] [place] [address] 07/15/2025 9:30 AM EST Appointment [facility] [place] [phone] documented as of this encounter Goals Goal Patient Goal Type Associated Problems Recent Progress Patient-Stated? Author Blood Pressure < 140/90 Blood Pressure 143/89( 025 2:06 PM EDT) Unique Headley RMA Eat better, exercise, reach an ideal body weight General No Kun Gaitan RMA documented as of this encounter Visit Diagnoses Diagnosis Rheumatoid arthritis involving multiple sites with positive rheumatoid factor (HCC)- Primary Encounter for long-term (current) use of high-risk medication Encounter for long-term (current) use of other medications documented in this encounter Care Teams Experimental Mechanic [employer] Relationship Specialty Start Date End Date Bean Herbert MD [address] [place] [phone] PCP - General 04/12/09 Haley Suresh MD [address] [place] [address] Internal Medicine-Rheumatology 11/04/22 documented as of this encounter
--- OUTSIDE RECORDS SUMMARY | 2025-02-24 11:22 | XMS_ITS | Encounter Summary ---
Author Organization [place] [address] Care Team Providers Care Business Supervisor Name Role Phone Bean Herbert MD Primary Care Provider [phone] Haley Suresh MD Unavailable [phone] Reason for Visit * Reason Onset Date Comments Orders 01/17/2025 cxr Encounter Details Date Type Department Care Team (Late st Contact Info) Description 01/17/2025 Telephone [facility] [address] [place] [address] Bean Herbert MD 119 [facility] [address] [place] [phone] Orders (cxr) Social History Tobacco Use Types Packs/Day Years [...] Assessment Author No 07/29/2024 12:36 PM Adeola Kwongn, VI * Is the person blind or does he/she have serious difficulty seeing even when wearing glasses? Answer Date of Assessment Author No 07/29/2024 12:36 PM Adeola Kwongn, JODYA * Does this person have serious difficulty walking or climbing stairs? Answer Date of Assessment Author No 07/29/2024 12:36 PM Adeola Kwongn, JODYA * Does this person have difficulty dressing or bathing? Answer Date of Assessment Author No 07/29/2024 12:36 PM Adeola Kwongn, JODYA * Because of a physical, mental or emotional condition, does this person have difficulty doing errands alone such as visiting a doctor's office or shopping? Answer Date of Assessment Author No 07/29/2024 12:36 PM Adeola Kwong Cecelia, VI documented as of this encounter Mental Status * Because of a physical, mental or emotional condition, does this person have serious difficulty concentrating, remembering or making decisions? Answer Entry Date Author No 07/29/2024 12:36 PM Adeola Kwong Cecelia, VI documented in this encounter Miscellaneous Notes * Telephone Encounter - Rhys Nazario MD - 01/17/2025 3:59 PM EDT Ok for this * [facility] [place] [facility] 3:49 PM EDT Select the most appropriate reason for this telephone message: Order Request Who is requesting the Order(s): Patient What Orders are being requested: Radiology - cxr Reason Orders are Needed (Diagnosis): cough since July - she wants to rule out tb. Why is this encounter being sent: Patient has been seen for this and informed to call back if no improvement or gets worse What types of radiology orders are being requested: X-ray Is patient waiting at lab/hospital/facility: No If non-[facility], where should the order be faxed (include fax number): n/a Upcoming PCP appointment date: none Return Method of Communication: Phone Call Additional Information: N/A documented in this encounter Plan of Treatment Upcoming Encounters Date Type Department Care Team (Late st Contact Info) Description 03/16/2025 1:00 PM EDT Office Visit [facility] Pul[facility] [address] [facility] [address] [place] [address] Grover Ware MD 651 [facility] [address] [place] [address] 07/04/2025 11:15 AM EST Office Visit [facility] [address] [place] [address] Haley Suresh MD [address] [place] [address] 07/15/2025 9:30 AM EST Appointment [facility] [place] [phone] documented as of this encounter Goals Goal Patient Goal Type Associated Problems Recent Progress Patient-Stated? Author Blood Pressure < 140/90 Blood Pressure 143/89( 025 2:06 PM EDT) No Unique Adan, RMA Eat better, exercise, reach an ideal body weight General No Kun Gaitan RMA documented as of this encounter Results * XR CHEST PA [...] X-RAY, 02/02/2025 10:49 AM CLINICAL HISTORY: R05.3-Chronic [id number] COMPARISON: 08/26/2024 PROCEDURE COMMENTS: Frontal and lateral views of the chest. FINDINGS: Heart and mediastinal contours within normal limits for technique. No active failure, pneumonia, or visible effusion. No visible pneumothorax. Procedure Note Bartolo Milan MD - 02/02/2025 PA AND LATERAL CHEST X-RAY, 02/02/2025 10:49 AM CLINICAL HISTORY: R05.3-Chronic [id number] COMPARISON: 08/26/2024 PROCEDURE COMMENTS: Frontal and lateral [...] in this encounter Visit Diagnoses Diagnosis Chronic cough- Primary Cough Chronic cough Cough documented in this encounter Care Teams Business Supervisor Relationship Specialty Start Date End Date Bean Herbert MD [address] [place] [phone] PCP - General 04/12/09 Haley Suresh MD [address] [place] [address] Internal Medicine-Rheumatology 11/04/22 documented as of this encounter
--- OUTSIDE RECORDS SUMMARY | 2025-02-24 11:22 | XMS_ITS | Encounter Summary ---
Author Organization [place] [address] Care Team Providers Care Supervisor Twisting Department Name Role Phone Bean Herbert MD Primary Care Provider [phone] Haley Suresh MD Unavailable [phone] Reason for Visit * Reason Onset Date Comments Medication Refill 01/25/2025 Encounter Details Date Type Department Care Team (Late st Contact Info) Description 01/25/2025 Refill [facility] [address] [place] [address] Bean Herbert MD [address] [address] Medication Refill Social History Tobacco [...] Assessment Author No 07/29/2024 12:36 PM Adeola KwongnVI * Does this person have serious difficulty walking or climbing stairs? Answer Date of Assessment Author No 07/29/2024 12:36 PM Adeola KwongnVI * Does this person have difficulty dressing or bathing? Answer Date of Assessment Author No 07/29/2024 12:36 PM Adeola KwongnVI * Because of a physical, mental or emotional condition, does this person have difficulty doing errands alone such as visiting a doctor's office or shopping? Answer Date of Assessment Author No 07/29/2024 12:36 PM Adeola KwongnVI documented as of this encounter Mental Status * Because of a physical, mental or emotional condition, does this person have serious difficulty concentrating, remembering or making decisions? Answer Entry Date Author No 07/29/2024 12:36 PM Adeola Kwongcarleen VI documented in this encounter Ordered Prescriptions Prescription Sig Dispense Quantity Refills Last Filled Start Date End Date ketoconazole (NIZORAL) 2 % Top ShampooIndications :Rash Apply topically Three times weekly. 120 mL 1 01/27/2025 documented in this encounter Plan of Treatment Upcoming Encounters Date Type Department Care Team (Late st Contact Info) Description 03/16/2025 1:00 PM EDT Office Visit [facility] Pul[facility]ology [facility] [address] [address] Grover Ware MD [address] [address] 07/04/2025 11:15 AM EST Office Visit [facility] [address] [place] [address] Haley Suresh MD [address] [place] [address] 07/15/2025 9:30 AM EST Appointment [facility] [place], [place] [phone] documented as of this encounter Goals Goal Patient Goal Type Associated Problems Recent Progress Patient-Stated? Author Blood Pressure < 140/90 Blood Pressure 143/89( 025 2:06 PM EDT) No Unique Adan RMA Eat better, exercise, reach an ideal body weight General No Kun Gaitan RMA documented as of this encounter Visit Diagnoses Diagnosis Rash Rash and other nonspecific skin eruption documented in this encounter Discontinued Medications Medication Sig Discontinue Reason Start Date End Da te ketoconazole (NIZORAL) 2 % Top ShampooIndications:Rash Apply topically Three times weekly. Reorder 12/30/2024 01/25/2025 documented as of this encounter Care Teams Supervisor Twisting Department Relationship Specialty Start Date End Date Bean Herbert MD [address] [place] [phone] PCP - General 04/12/09 Haley Suresh MD [address] [place] [address] Internal Medicine-Rheumatology 11/04/22 documented as of this encounter
--- OUTSIDE RECORDS SUMMARY | 2025-02-24 11:22 | XMS_ITS | Encounter Summary ---
Author Organization [place] [address] Care Team Providers Care Tank House Supervisor Name Role Phone Bean Herbert MD Primary Care Provider [phone] Haley Suresh MD Unavailable [phone] Reason for Visit * Reason Onset Date Comments Medication Refill 01/25/2025 Encounter Details Date Type Department Care Team (Late st Contact Info) Description 01/25/2025 Refill [facility] [address] [place] [address] Josefa Oswald MD 119 [facility] [address] [place] [address] Medication Refill Social History Tobacco Use [...] Assessment Author No 07/29/2024 12:36 PM CRISSY GallowayAdeola, VI * Is the person blind or does he/she have serious difficulty seeing even when wearing glasses? Answer Date of Assessment Author No 07/29/2024 12:36 PM CRISSY Adeola Galloway VI * Does this person have serious difficulty walking or climbing stairs? Answer Date of Assessment Author No 07/29/2024 12:36 PM Adeola Kwong VI * Does this person have difficulty dressing or bathing? Answer Date of Assessment Author No 07/29/2024 12:36 PM CRISSY Adeola Galloway VI * Because of a physical, mental or emotional condition, does this person have difficulty doing errands alone such as visiting a doctor's office or shopping? Answer Date of Assessment Author No 07/29/2024 12:36 PM CRISSY Adeola Galloway VI documented as of this encounter Mental Status * Because of a physical, mental or emotional condition, does this person have serious difficulty concentrating, remembering or making decisions? Answer Entry Date Author No 07/29/2024 12:36 PM CRISSY Adeola Galloway VI documented in this encounter Ordered Prescriptions Prescription Sig Dispense Quantity Refills Last Filled Start Date End Date HYDROcodone-acetamin ophen (NORCO) 10-325 mg Oral TabletIndications:Fi bromyalgia,DDD (degenerative disc disease), lumbar,Degenerative disc disease, lumbar,Primary osteoarthritis of both knees,Osteoarthritis of both knees, unspecified osteoarthritis type,Rheumatoid arthritis involving knee (HCC) Take 1 Tablet by mouth every 8 hours as needed for Chronic Pain (G89.29). 90 Tablet 01/26/2025 documented in this encounter Miscellaneous Notes * Telephone Encounter - Adeola Galloway RMA - 01/26/2025 8:09 AM EDT -Controlled Substance Treatment Agreement. 01/20/12 -Contract for Chronic Benzodiazepines. 01/20/12 -Contract for Chronic Opioids. 04/10/12 -SOAPP Score- 3 UDS OK 08/19/22 UDS OK 09/15/23 UDS OK 07/29/2024 11/18/[address] Herbert LF:12/30/2024 JOHN:12/16/2024 documented in this encounter Plan of Treatment Upcoming Encounters Date Type Department Care Team (Late st Contact Info) Description 03/16/2025 1:00 PM EDT Office Visit SEP Pulmonology [facility] 651 [facility] [address] [place] [address] Grover Ware MD 651 [facility] 19 [place] [address] 07/04/2025 11:15 AM EST Office Visit [facility] [address] [place] [address] Haley Suresh MD [address] [place] [address] 07/15/2025 9:30 AM EST Appointment [place] [address] documented as of this encounter Goals Goal Patient Goal Type Associated Problems Recent Progress Patient-Stated? Author Blood Pressure < 140/90 Blood Pressure 143/89( 025 2:06 PM EDT) No Unique Adan RMA Eat better, exercise, reach an ideal body weight General No Kun Gaitan RMA documented as of this encounter Visit Diagnoses Diagnosis Fibromyalgia Mylagia and myositis, unspecified DDD (degenerative disc disease), lumbar Degeneration of lumbar or lumbosacral intervertebral disc Degenerative disc disease, lumbar Degeneration of lumbar or lumbosacral intervertebral disc Primary osteoarthritis of both knees Primary localized osteoarthrosis, lower leg Osteoarthritis of both knees, unspecified osteoarthritis type Rheumatoid arthritis involving knee (HCC) documented in this encounter Discontinued Medications Medication Sig Discontinue Reason Start Date End Da te HYDROcodone-acetaminophen (NORCO) 10-325 mg Oral TabletIndications:Fibromya lgia,DDD (degenerative disc disease), lumbar,Degenerative disc disease, lumbar,Primary osteoarthritis of both knees,Osteoarthritis of both knees, unspecified osteoarthritis type,Rheumatoid arthritis involving knee (HCC) Take 1 Tablet by mouth every 8 hours as needed for Chronic Pain (G89.29). Reorder 12/30/2024 01/25/2025 documented as of this encounter Care Teams Tank House Supervisor Relationship Specialty Start Date End Date Bean Herbert MD [address] [place] [phone] PCP - General 04/12/09 Haley Suresh MD [address] [place] [address] Internal Medicine-Rheumatology 11/04/22 documented as of this encounter
--- OUTSIDE RECORDS SUMMARY | 2025-02-24 11:23 | XMS_ITS | Encounter Summary ---
Author Organization [place] [address] Care Team Providers Care Pearl Stringer Name Role Phone Bean Herbert MD Primary Care Provider [phone] Haley Suresh MD Unavailable [phone] Reason for Visit * Reason Comments Medication Refill Encounter Details Date Type Department Care Team (Late st Contact Info) Description 12/30/2024 Refill [facility] [address] [place] [address] Bean Herbert MD [address] [place] [address] Medication Refill Social History Tobacco Use [...] Author No 07/29/2024 12:36 PM Adeola Kwong CeceliaVI * Is the person blind or does he/she have serious difficulty seeing even when wearing glasses? Answer Date of Assessment Author No 07/29/2024 12:36 PM Adeola KwongnVI * Does this person have serious difficulty walking or climbing stairs? Answer Date of Assessment Author No 07/29/2024 12:36 PM Adeola Kwong Cecelia VI * Does this person have difficulty [...] Adeola Kwongcarleen VI documented in this encounter Plan of Treatment Upcoming Encounters Date Type Department Care Team (Late st Contact Info) Description 03/16/2025 1:00 PM EDT Office Visit SEP Pulmonology [facility] [address] [address] Grover Ware MD [address] [address] 07/04/2025 11:15 AM EST Office Visit [facility] [address] [place] [address] Haley Suresh MD [address] [place] [address] 07/15/2025 9:30 AM EST Appointment [facility] [place] [phone] documented as of this encounter Goals Goal [...] involving knee (HCC) documented in this encounter Care Teams Pearl Stringer Relationship Specialty Start Date End Date Bean Herbert MD [address] [place] [phone] PCP - General 04/12/09 Haley Suresh MD [address] [place] [address] Internal Medicine-Rheumatology 11/04/22 documented as of this encounter
--- OUTSIDE RECORDS SUMMARY | 2025-02-24 11:23 | XMS_ITS | Encounter Summary ---
Author Organization [facility] [place] [address] Care Team Providers Care Nurse Special Name Role Phone Bean Herbert MD Primary Care Provider [phone] Haley Suresh MD Unavailable [phone] Brianda Turcios RN Unavailable Unavailabl e Reason for Referral * Medication Prior Authorization - Closed Specialty Diagnoses / Procedures Referred By Ashtyn miller Referred To Contact Diagnoses Vitamin D deficiency Bean Herbert MD [address] [facility] [address] [address] Phone: tel: fax: Referral ID Status Reason Start Date Expiration Date Visits Re quested Visits Authorized [id number] Closed 1 1 * Consultation (Routine) - Pending Review Specialty Diagnoses / Procedures Referred By Contac t Referred To Contact Pulmonology Diagnoses Chronic cough Procedures OH OFFICE/OUTPATIENT NEW MODERATE MDM 45 MINUTES Bean Herbert MD [address] [facility] [address] [place] [phone] Phone: tel: fax: [facility] [address] [place] [address] Phone: tel: fax:[phone] Referral ID Status Reason Start Date Expiration Date Visits Requested Visits Authorized [id number] Pending Review Specialty Services Required 01/03/2025 01/03/2026 99 99 Question Answer This referral to pulmonology should not be used to refer to sleep studies or sleep-related consultations. To refer to sleep, please use REF 99 - Ambulatory referral to Sleep Studies. Click Acknowledge to proceed. Acknowledge - Order Not For Sleep Medicine Reason for Visit * Reason Onset Date Comments Other 01/03/2025 pt has a few que stions Encounter Details Date Type Department Care Team (Late st Contact Info) Description 01/03/2025 Telephone SEP [facility] [address] [place] [address] Bean Herbert MD 119 [facility] [address] [place] [address] Other (pt has a few questions) Social History Tobacco Use Types Packs/Day Years [...] No 07/29/2024 12:36 PM CRISSY Adeola Galloway RMThu * Because of a physical, mental or emotional condition, does this person have difficulty doing errands alone such as visiting a doctor's office or shopping? Answer Date of Assessment Author No 07/29/2024 12:36 PM CRISSY Nilesh JODY OspinaThu documented as of this encounter Mental Status * Because of a physical, mental or emotional condition, does this person have serious difficulty concentrating, remembering or making decisions? Answer Entry Date Author No 07/29/2024 12:36 PM CRISSY Nilesh Adeola Rai VI documented in this encounter Ordered Prescriptions Prescription Sig Dispense Quantity Refills Last Filled Start Date End Date ergocalciferol (DRISDOL) 1,250 mcg (50,000 unit) Oral CapsuleIndications :Vitamin D deficiency Take 1 Capsule by mouth once a week. 12 Capsule 3 01/03/2025 rosuvastatin (CRESTOR) 20 mg Oral TabletIndications: Hyperlipidemia with target LDL less than 100 Take 1 Tablet by mouth nightly. 90 Tablet 3 01/03/2025 documented in this encounter Miscellaneous Notes * Telephone Encounter - Adeola Galloway RMA - 01/03/2025 12:37 PM EDT Images from the original note were not included. Close reason: Other Payer: [facility] [phone] Note from payer: The medication you have requested is not covered by Medicare Part D Law. If you believe the medication is being used for a medically accepted or compendia supported indication approved by CMS, please contact your patient's plan. - An obsolete NDC was found and replaced on the PriorAuthorization to allow PA to flow electronically. - Prescriber details have been updated to match the prescriber directory. View History * Telephone Encounter - Adeola Galloway RMA - 01/03/2025 12:22 PM EDT Medication sent to pharm. Pulmonology referral placed. * Telephone Encounter - Bean Herbert MD - 01/03/2025 12:01 PM EDT Cough---Pulm-med eval Decrease Crestor / tab * Telephone Encounter - Annie Escobar - 01/03/2025 10:52 AM EDT Select the most appropriate reason for this telephone message: Other Who is calling (name & relationship to patient if not the patient): Patient What is needed OR why are they calling: pt has a few questions... cholesterol med is making her sick...nausea, body aches, kidney hurts, asking pcp advice still waiting for vitamin d PA also asking what are the next steps for the chronic cough? When is this needed by: lise Where does this information need to go: pcp Return Method of Communication: Garlikhart Message Additional information:N/A documented in this encounter Plan of Treatment Upcoming Encounters Date Type Department Care Team (Late st Contact Info) Description 03/16/2025 1:00 PM EDT Office Visit SEP Pulmonology [facility] [address] [phone] Grover Ware MD [address] [address] 07/04/2025 11:15 AM EST Office Visit [facility] [address] [place] [address] Haley Suresh MD 26[address] [place] [address] 07/15/2025 9:30 AM EST Appointment [place] [address] Scheduled Referrals Name Type Priority Associated Diagnoses Order Schedule AMB REFERRAL TO PULMONOLOGY Outpatient Referral Routine Chronic cough Ordered: 01/03/2025 documented as of this encounter Goals Goal Patient Goal Type Associated Problems Recent Progress Patient-Stated? Author Blood Pressure < 140/90 Blood Pressure 143/89( 025 2:06 PM EDT) No Unique Adan L, RMA Eat better, exercise, reach an ideal body weight General No uKn Gaitan RMA documented as of this encounter Visit Diagnoses Diagnosis Chronic cough- Primary Cough Hyperlipidemia with target LDL less than 100 Other and unspecified hyperlipidemia Vitamin D deficiency Unspecified vitamin D deficiency documented in this encounter Discontinued Medications Medication Sig Discontinue Reason Start Date End Da te rosuvastatin (CRESTOR) 40 mg Oral Tablet Take 1 Tablet by mouth daily. Cancelled by 12/20/2024 01/03/2025 ergocalciferol (DRISDOL) 1,250 mcg (50,000 unit) Oral CapsuleIndications:Vitam in D deficiency Take 1 Capsule by mouth once a week. Cancelled by 12/31/2024 01/03/2025 ergocalciferol (DRISDOL) 1,250 mcg (50,000 unit) Oral CapsuleIndications:Vitam in D deficiency Take 1 Capsule by mouth once a week. Reorder 12/20/2024 01/03/2025 documented as of this encounter Care Teams Nurse Special Relationship Specialty Start Date End Date Bean Herbert MD [address] [place] [phone] PCP - General 04/12/09 Haley Suresh MD [address] [place] [phone] Internal Medicine-Rheumatology 11/04/22 Brianda Turcios, RN Registered Nurse Infusion Therapy 01/12/25 01/12/25 documented as of this encounter
--- OUTSIDE RECORDS SUMMARY | 2025-02-24 11:23 | XMS_ITS | Encounter Summary ---
Author Organization [facility] Address [address] [place] [address] Care Team Providers Care Gear And Spline Grinder Name Role Phone Bean Herbert MD Primary Care Provider [phone] Haley Suresh MD Unavailable [phone] Brianda Turcios RN Unavailable Unavailabl e Reason for Visit * Reason Onset Date Comments Results 01/12/2025 Encounter Details Date Type Department Care Team (Late st Contact Info) Description 01/12/2025 Telephone [facility] [address] [place] [address] Unique Gaytan MA Results Social History Tobacco Use Types Packs/Day Years [...] No 07/29/2024 12:36 PM CRISSY Galloway Adeola Rai, VI * Does this person have difficulty [...] No 07/29/2024 12:36 PM Adeola Kwong VI documented in this encounter Miscellaneous Notes * Telephone Encounter - Unique Gaytan MA - 01/12/2025 12:45 PM EDT Daughter Sultana called to inform Dr Suresh her moms bloodwork results were elevated. Made Dr Suresh aware, she is ordering repeat labs for next week . Sultana will have Corazon complete. documented in this encounter Plan of Treatment Upcoming Encounters Date Type Department Care Team (Late st Contact Info) Description 03/16/2025 1:00 PM EDT Office Visit SEP Pulmonology [facility] [address] [address] Grover Ware MD [address] [address] 07/04/2025 11:15 AM EST Office Visit [facility] [address] [place] [address] Haley Suresh MD [address] [place] [address] 07/15/2025 9:30 AM EST Appointment [place] [address] documented as of this encounter Goals Goal Patient Goal Type Associated Problems Recent Progress Patient-Stated? Author Blood Pressure < 140/90 Blood Pressure 143/89( 025 2:06 PM EDT) No Unique Adan RMA Eat better, exercise, reach an ideal body weight General No Kun Gaitan RMA documented as of this encounter Results * C-REACTIVE PROTEIN (02/02/2025 10:37 AM EDT) CRP <3.00 <=5.00 mg/L 02/02/2025 5:13 PM EDT PREFERRED [facility] Blood VENOUS BLOOD / Unknown Venipuncture / Unknown 02/02/2025 10:37 AM EDT 02/02/2025 10:37 AM EDT us Haley Suresh MD CHEMISTRY ORDERABLES Final Re sult [facility]REF[facility] [address] [place] [address], [place] [address] documented in this encounter Visit Diagnoses Diagnosis Medication monitoring encounter- Primary Encounter for therapeutic drug monitoring High risk medication use Encounter for long-term (current) use of other medications documented in this encounter Orders Lab Orders Without Results Count Last Ordered D ate First Ordered Date CBC WITH DIFF 1 01/12/2025 documented in this encounter Care Teams Gear And Spline Grinder Relationship Specialty Start Date End Date Bean Herbert MD 119 [facility] [address] [place] [address] PCP - General 04/12/09 Haley Suresh MD [address] [place] [address] Internal Medicine-Rheumatology 11/04/22 Brianda Turcios RN Registered Nurse Infusion Therapy 01/12/25 01/12/25 documented as of this encounter
--- OUTSIDE RECORDS SUMMARY | 2025-02-24 11:23 | XMS_ITS | Encounter Summary ---
Author Organization [place] [address] Care Team Providers Care Conditioning Yard Supervisor Name Role Phone Bean Herbert MD Primary Care Provider [phone] Haley Suresh MD Unavailable [phone] Reason for Visit * Reason Onset Date Comments Medication Refill 02/24/2025 Encounter Details Date Type Department Care Team (Late st Contact Info) Description 02/24/2025 Refill [facility] [address] [place] [address] Bean Herbert MD [address] [address] Medication Refill Social History Tobacco [...] Adeola Kwong RMA documented in this encounter Ordered Prescriptions Prescription Sig Dispense Quantity Refills Last Filled Start Date End Date HYDROcodone-acetamin ophen (NORCO) 10-325 mg Oral TabletIndications:Fi bromyalgia,DDD (degenerative disc disease), lumbar,Degenerative disc disease, lumbar,Primary osteoarthritis of both knees,Osteoarthritis of both knees, unspecified osteoarthritis type,Rheumatoid arthritis involving knee (HCC) Take 1 Tablet by mouth every 8 hours as needed for Chronic Pain (G89.29). 90 Tablet 02/24/2025 documented in this encounter Miscellaneous Notes * Telephone Encounter - Adeola Galloway RMA - 02/24/2025 8:52 AM EDT UDS OK 08/19/22 UDS OK 09/15/23 UDS OK 07/29/2024 11/18/[address] Herbert LF:01/26/2025 JOHN:12/16/2024 documented in this encounter Plan of Treatment Upcoming Encounters Date Type Department Care Team (Late st Contact Info) Description 03/16/2025 1:00 PM EDT Office Visit [facility] [address] [phone] Grover Ware MD [address] [address] 07/04/2025 11:15 AM EST Office Visit [facility] [address] [place] [address] Haley Suresh MD [address] [place] [address] 07/15/2025 9:30 AM EST [place]oint[place] [address] documented as of this encounter [...] as needed for Chronic Pain (G89.29). Reorder 01/26/2025 02/24/2025 documented as of this encounter Care Teams Conditioning Yard Supervisor Relationship Specialty Start Date End Date Bean Herbert MD [address] [address] PCP - General 04/12/09 Haley Suresh MD [address] [place] [address] Internal Medicine-Rheumatology 11/04/22 documented as of this encounter
--- OUTSIDE RECORDS SUMMARY | 2025-02-24 11:23 | XMS_ITS | Clinical Summary ---
Author Organization [facility] Address [address] [place] [address] Phone Care Team Providers Care Dust Operator Name Role Phone Bean Herbert MD Primary Care Provider [phone] Haley Suresh MD Unavailable [phone] Allergies Active Allergy Reactions Criticality Noted Date Comments Duloxetine Other (See Comments) h/a h/a Sulfa (Sulfonamide Antibiotics) 02/03/2015 Medications * This document contains information received from the source organization and may not represent a complete record from that organization. aspirin 81 mg tabletIndications: HTN (hypertension) Take 1 Tab by mouth daily. 90 Tab 3 08/18/19 11 Active linaCLOtide (LINZESS) 72 mcg Oral CapsuleIndications :Constipation, chronic Take 1 Capsule by mouth daily. 90 Capsule 2 09/15/19 24 Active Nebulizer Accessories Misc Kit Use 4 times a day prn. 1 Kit 08/06/19 25 Active diphenhydrAMINE (BENADRYL) 50 mg Oral Capsule Take 1 Capsule by mouth daily. 10 Capsule 1 08/06/19 25 Active meclizine (ANTIVERT) 25 mg Oral TabletIndications: Dizziness TAKE 1 TABLET BY MOUTH 4 TIMES DAILY NEEDED FOR DIZZINESS. 120 Tablet 3 09/02/19 25 Active budesonide-formote roL (SYMBICORT) 160-4.5 mcg/actuation Inhl HFA Aerosol InhalerIndications :Mild intermittent asthma without complication,Acute bronchitis due to respiratory syncytial virus Inhale 2 Puffs into the lungs 2 times daily. 10.2 Each 11/12/19 25 Active loratadine (CLARITIN) 10 mg Oral TabletIndications: Mild intermittent asthma without complication,Acute bronchitis due to respiratory syncytial virus Take 1 Tablet by mouth daily. 90 Tablet 1 11/12/19 25 Active losartan (COZAAR) 100 mg Oral TabletIndications: Essential hypertension Take 1 Tablet by mouth 2 times daily. 180 Tablet 3 11/12/19 25 Active omeprazole (PRILOSEC) 20 mg Oral Capsule, Delayed Release(E.C.)Indic ations:Acute superficial gastritis, presence of bleeding unspecified Take 1 Capsule by mouth 2 times daily (before meals). 180 Capsule 2 11/12/19 25 Active ipratropium-albute rol (COMBIVENT RESPIMAT) 20-100 mcg/actuation Inhl MistIndications:Mi ld intermittent asthma without complication Inhale 1 Puff into the lungs every 6 hours as needed. for wheezing 12 g 12/09/19 25 Active albuterol-ipratrop ium (DUO-NEB) 3 mg-0.5 mg(2.5 mg base)/3 mL Inhl Solution for NebulizationIndica tions:Mild intermittent asthma without complication,Acute bronchitis due to respiratory syncytial virus Take 3 mL by nebulization every 6 hours as needed for Shortness of Breath. 1080 mL 10 12/31/19 25 Active rosuvastatin (CRESTOR) 20 mg Oral TabletIndications: Hyperlipidemia with target LDL less than 100 Take 1 Tablet by mouth nightly. 90 Tablet 3 01/04/20 25 Active ergocalciferol (DRISDOL) 1,250 mcg (50,000 unit) Oral CapsuleIndications :Vitamin D deficiency Take 1 Capsule by mouth once a week. 12 Capsule 3 01/04/20 25 Active ketoconazole (NIZORAL) 2 % Top ShampooIndications :Rash Apply topically Three times weekly. 120 mL 1 01/28/20 25 Active LEVOthyroxine (SYNTHROID) 25 mcg Oral TabletIndications: Hypothyroidism (acquired) Take 1 Tablet by mouth daily. 90 Tablet 3 01/27/20 25 Active amLODIPine (NORVASC) 5 mg Oral TabletIndications: Essential hypertension Take 1 Tablet by mouth daily. 90 Tablet 3 01/27/20 25 Active hydrOXYzine (ATARAX) 25 mg Oral TabletIndications: Dysesthesia of scalp Take 1 Tablet by mouth nightly as needed for Itching. Do not drive or operate heavy machinery after taking 90 Tablet 11 01/27/20 25 Active diazePAM (VALIUM) 10 mg Oral TabletIndications: Depression with anxiety Take 1 Tablet by mouth 3 times daily as needed. 90 Tablet 2 01/27/20 25 Active HYDROcodone-acetam inophen (NORCO) 10-325 mg Oral TabletIndications: Fibromyalgia,DDD (degenerative disc disease), lumbar,Degenerativ e disc disease, lumbar,Primary osteoarthritis of both knees,Osteoarthrit is of both knees, unspecified osteoarthritis type,Rheumatoid arthritis involving knee (HCC) Take 1 Tablet by mouth every 8 hours as needed for Chronic Pain (G89.29). 90 Tablet 02/25/20 25 Active ibuprofen (ADVIL;MOTRIN) 800 mg Oral TabletIndications: Degeneration of intervertebral disc of lumbar region, unspecified whether pain present Take 1 Tablet by mouth every 8 hours as needed for Pain. 30 Tablet 10 02/25/20 25 Active HYDROcodone-acetam inophen (NORCO) 10-325 mg Oral TabletIndications: Fibromyalgia,DDD (degenerative disc disease), lumbar,Degenerativ e disc disease, lumbar,Primary osteoarthritis of both knees,Osteoarthrit is of both knees, unspecified osteoarthritis type,Rheumatoid arthritis involving knee (HCC) Take 1 Tablet by mouth every 8 hours as needed for Chronic Pain (G89.29). 90 Tablet 01/27/20 25 025 Discontin ued(Reord er) ibuprofen (ADVIL;MOTRIN) 800 mg Oral TabletIndications: Degeneration of intervertebral disc of lumbar region, unspecified whether pain present Take 1 Tablet by mouth every 8 hours as needed for Pain. 30 Tablet 10 01/27/20 25 025 Discontin ued(Reord er) Active Problems Patient Care Coordination No te Formatting of this note migh t be different from the original. 01/20/12 -Controlled Substance Treatment Agreement. 01/20/12 -Contract for Chronic Benzodiazepines. 01/20/12 -Contract for Chronic Opioids. 04/10/12 -SOAPP Score- 3 UDS OK 08/19/22 UDS OK 09/15/23 UDS OK 07/29/2024 11/18/[address] Herbert MRI PERFORMED AT [facility] ON 09/18/16 -- PATIENT WOULD LIKE TO BE INFORMED DIRECTLY OF THE RESULTS -- NOT HER OR ANYONE ELSE PATIENT REFUSES COLONOSCOPY AND COLOGUARD PATIENT REFUSES FLU SHOT Problem Noted Date Diagnosed Date Chronic cough 12/30/2024 Overview (12/30/2024): Non productive cough since 07/2024 Workup in progress for pulmonary causes. Chest x-ray normal. CT chest and PFT pending. Pt has hoarseness of voice / tickle in throat. No infections Has GERD on PPI. ?Could be silent reflux causing cough If lung w/u NEG, consider referral to ENT. Degenerative arthritis of knee, bilateral 2023 Rheumatoid arthritis involvi ng multiple sites with positive rheumatoid factor 08/26/2022 Overview (12/30/2024): No clinical synovitis. Assessment & Plan (12/30/2024 3:04 PM EDT): PLAN Controlled with Rituxan 1000 mg, 2 doses 2 weeks apart, every 5 months. Since patient is well-controlled, we will explore if we can do maintenance dose of Rituxan 1000 mg q. 5 months single dose. Labs 07/2024 CBC,CMP,Sed normal Imaging X-ray bilateral hands obtained in the qoghhg11/29/18 and reviewed by me with patient on the same day. MCPs normal joint space without erosions. PIPs normal space. Fifth DIP especially right side with joint space narrowing suggestive of osteoarthritis. Wrists without erosions or chondrocalcinosis. Lab 03-30-18 +RF, CCP,KARYN,TPO NEG SSA,SSB,Tucker,DESTINATION IMAGINATION COORDINATOR @TB Gold Neg- 10/29/23, 03/2018 @Functional status assessed. Disease activity low. Prognosis good. @Patient cannot take any live vaccinations on Biologics . Patient also understands that if there is an infection, DMARDs need to be held until infection has been resolved. @Patient needs to be up-to-date on all age-appropriate vaccinations. FAILED Unable to tolerate methotrexate. MTX in the past did not completely controlled rheumatoid either. patient was on methotrexate for the first 2-3 years after diagnosis. So far no x-ray evidence of rheumatoid arthritis. Unable to tolerate leflunamide 10 mg daily . Assessment & Plan (04/27/2024 11:54 AM EST): Imaging X-ray bilateral hands obtained in the lgoqgs63/29/18 and reviewed by me with patient on the same day. MCPs normal joint space without erosions. PIPs normal space. Fifth DIP especially right side with joint space narrowing suggestive of osteoarthritis. Wrists without erosions or chondrocalcinosis. Lab 03-30-18 +RF, CCP,KARYN,TPO NEG SSA,SSB,Tucker,DESTINATION IMAGINATION COORDINATOR @TB Gold Neg- 10/29/23, 03/2018 @Functional status assessed. Disease activity low. Prognosis good. @Patient cannot take any live vaccinations on Biologics . Patient also understands that if there is an infection, DMARDs need to be held until infection has been resolved. @Patient needs to be up-to-date on all age-appropriate vaccinations. FAILED Unable to tolerate methotrexate. MTX in the past did not completely controlled rheumatoid either. patient was on methotrexate for the first 2-3 years after diagnosis. So far no x-ray evidence of rheumatoid arthritis. Unable to tolerate leflunamide 10 mg daily . Assessment & Plan (03/22/2024 2:01 PM EDT): Imaging X-ray bilateral hands obtained in the /29/18 and reviewed by me with patient on the same day. MCPs normal joint space without erosions. PIPs normal space. Fifth DIP especially right side with joint space narrowing suggestive of osteoarthritis. Wrists without erosions or chondrocalcinosis. Lab 03-30-18 +RF, CCP,KARYN,TPO NEG SSA,SSB,Tucker,DESTINATION IMAGINATION COORDINATOR @TB Gold Neg- 10/29/23, 03/2018 @Functional status assessed. Disease activity low. Prognosis good. @Patient cannot take any live vaccinations on Biologics . Patient also understands that if there is an infection, DMARDs need to be held until infection has been resolved. @Patient needs to be up-to-date on all age-appropriate vaccinations. FAILED Unable to tolerate methotrexate. MTX in the past did not completely controlled rheumatoid either. patient was on methotrexate for the first 2-3 years after diagnosis. So far no x-ray evidence of rheumatoid arthritis. Unable to tolerate leflunamide 10 mg daily . Assessment & Plan (09/18/2023 12:25 PM EDT): Imaging X-ray bilateral hands obtained in the /29/18 and reviewed by me with patient on the same day. MCPs normal joint space without erosions. PIPs normal space. Fifth DIP especially right side with joint space narrowing suggestive of osteoarthritis. Wrists without erosions or chondrocalcinosis. lab 03-30-18 +RF, CCP,KARYN,TPO NEG SSA,SSB,Tucker,DESTINATION IMAGINATION COORDINATOR @TB Gold Neg- 03/2018 @Functional status assessed. Disease activity low. Prognosis good. @Patient cannot take any live vaccinations on Biologics . Patient also understands that if there is an infection, DMARDs need to be held until infection has been resolved. @Patient needs to be up-to-date on all age-appropriate vaccinations. Labs 04/12/22 with normal CBC, sed rate, CRP, LFT and creatinine. patient was on methotrexate for the first 2-3 years after diagnosis. So far no x-ray evidence of rheumatoid arthritis. FAILED patient unable to tolerate methotrexate. MTX in the past did not completely controlled rheumatoid either. Unable to tolerate leflunamide 10 mg daily . Rheumatoid arthritis involving knee 11/30/2019 Hyperlipidemia with target LDL less than 100 Primary osteoarthritis of both knees 01/16/2017 Overview (03/22/2024): Bilateral knee asymptomatic. Assessment & Plan (03/22/2024 2:02 PM EDT): Patient receives Visco from orthopedics both knees. Left knee swelling could had been from underlying OA . For osteoarthritis bilateral knees it appears the patient has explored options of NSAIDs, intra-articular injections both steroids and Visco. patient is responsive to Depo-Medrol injections. For ongoing pain, continue with pain management.. Patient follows orthopedics. Constipation, chronic 11/20/2015 Intraductal papilloma of breast 09/15/2014 Vitamin D deficiency 06/07/2013 Overview (12/30/2024): Vitamin D level 27 ng/mL 11/2024. It has improved from previous value. Vitamin D level was 18.3 ng/mL 07/2024 Continue on twice weekly vitamin D replacement. Assessment & Plan (12/16/2024 11:19 AM EDT): Takes weekly rx Orders: VITAMIN D 25 HYDROXY; Future Fibromyalgia 05/12/2013 Asthma 01/14/2011 History of total hysterectomy 01/09/2009 Encounter for long-term (cur rent) use of high-risk medication 09/26/2008 Overview (03/22/2024): RITUXAN:We discussed the side effects of Rituxan including but not limited to infusion reactions, tumor lysis syndrome, severe skin and mouth reactions, PML , low blood counts and serious infections. Patient expressed understanding. Labs from 03/2024-normal CBC, AST, ALT and creatinine. 11/2023-normal sed rate and CRP. CBC, creatinine and liver function normal. Assessment & Plan (12/29/2024 2:34 PM EDT): Essential hypertension Assessment & Plan (12/16/2024 11:19 AM EDT): BP stable No med changes Orders: VITAMIN D 25 HYDROXY; Future THYROID STIMULATING HORMONE; Future LIPID PANEL REFLEX; Future CBC; Future COMPREHENSIVE METABOLIC PANEL; Future Assessment & Plan (07/29/2024 1:32 PM EST): BP stable No med changes Depression with anxiety Assessment & Plan (07/29/2024 1:32 PM EST): Valium, no issues Follow up in 3 months DDD (degenerative disc disease), lumbar Assessment & Plan (12/16/2024 11:19 AM EDT): hydrocodone Follow up in 3 months Assessment & Plan (07/29/2024 1:32 PM EST): Hydrocodone Follow up in 3 months Orders: dexAMETHasone (DECADRON) injection 10 mg Herniated disc AR (allergic rhinitis) Resolved Problems Problem Noted Date Diagnosed Date Resolved Date Exposure to influenza 09/15/20232023 Exposure to COVID-19 virus 09/15/2023 1 06/07/2023 Dehydration 09/15/2023 04/07/2024 Anxiety attack 09/15/2023 04/07/2024 Mental status change resolved 09/15/2023 04/07/2024 Other specified disorders of bone density and structure, multiple sites 10/22/2022 04/07/2024 Overview (03/22/2024): DEXA 02/15/22 mild osteopenia. Repeat DEXA scan ordered. Assessment & Plan (03/22/2024 2:00 PM EDT): DEXA 02/15/22 Lumbar spine, right total hip and left one third radius T score is normal. Right femoral neck T score -1.5. Right hip bone density is significantly increased compared to 2019. Spine bone density also increased. Spine bone density is limited because of hypertrophic changes. Patient has mild osteopenia with low risk of fractures. Recommend calcium intake in the form of calcium citrate, 1200 mg daily and vitamin D at least 2000 IUs daily. She has a history of vitamin D deficiency. Vitamin D Has been replaced. Encourage weightbearing exercises as walking. Assessment & Plan (09/16/2023 10:16 AM EDT): Background history DEXA 02/09/19 reviewed with patient on 02/17/19. Patient has osteopenia of left femoral neck T score -1.5. Right femoral neck T score also osteopenic is -1.2. FRAX calculation shows ten-year probability of major osteoporotic fractures 8.2% and hip fracture 0.7% both of which are low. Spine portion of the study is limited because of hypertrophic changes. COVID-19 05/07/2021 04/07/2024 Bilateral nipple discharge 10/06/2020 1 06/07/2023 Bilateral mastodynia 10/06/2020 024 Rheumatoid arthritis, seropo sitive, multiple sites 09/06/2020 04/27/2024 Hematuria of undiagnosed cause 05/13/2012 11/08/2016 OA (osteoarthritis) of knee 08/17/2010 01/16/2017 Depression 11/01/2009 11/08/2016 Encounters Date Type Department Care Team Description 02/24/2025 Refill [facility] [address] [place] [address] Bean Herbert MD Medication Refill 02/24/2025 Refill [facility] [address] [place] [address] Bean Herbert MD Medication Refill 02/02/2025 10:33 AM EDT - 02/02/2025 11:59 PM EDT Hospital Encounter [facility] [address] [place] [address] Chronic cough Discharge Disposition: Home or Self Care 02/02/2025 Results Follow-Up [facility] [address] [place] [address] Bean Herbert MD XR CHEST PA AND LATERAL 01/26/2025 Orders Only [facility] [address] [place] [phone] Haley Suresh MD Rheumatoid arthritis involving multiple sites with positive rheumatoid factor (HCC) (Primary Dx); Encounter for long-term (current) use of high-risk medication 01/26/2025 Telephone [facility] [place] [address] Haley Suresh MD Prior Authorization (TRUXIMA) 01/25/2025 Refill [facility] [address] [place] [address] Bean Herbert MD Medication Refill 01/25/2025 Refill [facility] [address] [place] [address] Josefa Oswald MD Medication Refill 01/25/2025 Refill [facility] [address] [place] [address] Bean Herbert MD Medication Refill 01/17/2025 Telephone [facility] [address] [place] [address] Bean Herbert MD Orders (cxr) 01/17/2025 [facility]phone [facility] [place] [address] Haley Suresh MD Reschedule (Reschedule) 01/17/2025 [facility]phone [facility] [address] [place] [address] Angie Orozco, Clerical Staff Biologic Dose/freq Change (Rituxan - 1000mg (x1) Q 6 months) 01/14/2025 Telephone [facility] [address] [place] [address] Bean Herbert MD Symptoms (Only Use If Pt Pushes Back On Scheduling A Visit) (Cough ) 01/13/2025 Orders Only [facility] [address] [place] [address] Haley Suresh MD Rheumatoid arthritis involving multiple sites with positive rheumatoid factor (HCC) (Primary Dx) 01/12/2025 8:00 AM EDT - 01/12/2025 11:59 PM EDT Hospital Encounter [facility] [place] [address] Rheumatoid arthritis involving multiple sites with positive rheumatoid factor (HCC) (Primary Dx) Discharge Disposition: Home or Self Care 01/12/2025 Telephone [facility] [address] [place] [address] Unique Gaytan MA Results 01/03/2025 Telephone [facility] [address] [place] [address] Bean Herbert MD Other (pt has a few questions) 12/31/2024 Telephone [facility] [place] [address] Haley Suresh MD Reschedule (Infusion ) 12/30/2024 2:29 PM EDT - 12/30/2024 11:59 PM EDT Hospital Encounter [facility] [place] [address] Bean Herbert MD Chronic cough Discharge Disposition: Home or Self Care 12/30/2024 1:30 PM EDT Office Visit [facility] [address] [place] [address] Haley Suresh MD Rheumatoid arthritis involving multiple sites with positive rheumatoid factor (HCC) (Primary Dx); Primary osteoarthritis of both knees; Vitamin D deficiency; Encounter for long-term (current) use of high-risk medication; Chronic cough 12/30/2024 10:06 AM EDT - 12/30/2024 2:28 PM EDT [facility] [address] [place] [address] Bean Herbert MD Chronic cough Discharge Disposition: Home or Self Care 12/30/2024 Telephone [facility] [address] [place] [address] Haley Suresh MD Biologic Dose/freq Change (RTX (DOSING CHANGE)) 12/30/2024 Telephone [facility] [address] [place] [address] Bean Herbert MD Results (Pt seeking results) 12/30/2024 Refill [facility] [address] [place] [address] Bean Herbert MD Medication Refill 12/30/2024 Refill [facility] [address] [place] [address] Bean Herbert MD Medication Refill 12/30/2024 Refill [facility] [address] [place] [address] Bean Herbert MD Medication Refill 12/29/2024 Refill [facility] [address] [place] [address] Bean Herbert MD Medication Refill 12/20/2024 Telephone [facility] [address] [place] [address] Bean Herbert MD Prior Authorization (Vitamin d) 12/20/2024 Results Follow-Up [facility] [address] [place] [address] Bean Herbert MD VITAMIN D 25 HYDROXY, THYROID STIMULATING HORMONE, LIPID PANEL REFLEX, Additional followed-up results: 4 12/16/2024 2:15 PM EDT Office Visit [facility] [address] [place] [address] Bean Herbert MD Essential hypertension (Primary Dx); Hypothyroidism (acquired); Degeneration of intervertebral disc of lumbar region, unspecified whether pain present; Vitamin D deficiency; Chronic cough 12/15/2024 Travel 12/08/2024 Refill [facility] [address] [place] [address] Bean Herbert MD Medication Refill 11/30/2024 Refill [facility] [address] [place] [address] Bean Herbert MD Medication Refill from Last 3 Months Immunizations Immunization Administration Dates Next Due Tdap 09/13/2013 Surgical History Surgery Date Site/Laterality Comments HYSTERECTOMY SECTION ABDOMEN SURGERY BREAST SURGERY CORONARY ARTERY BYPASS GRAFT Medical History Medical History Date Comments Hypertension Arthritis Anxiety Depression Asthma Family History Medical History Relation Name Comments Lung Cancer Father Diabetes Maternal Grandmother Agueda jones Arthritis Mother Malinda dean Breast Cancer Mother Malinda dean Cancer Mother Malinda dean Diabetes Mother Malinda dean Hypertension Mother Malinda dean Cancer Paternal Grandmother Agueda jones Hypertension Paternal Uncle Relation Name Status Comments Father Maternal Grandfather Maternal Grandmother Agueda jones Mother Malinda dean Alive Paternal Grandfather Paternal Grandmother Agueda jones Paternal Uncle Social History Tobacco Use Types Packs/Day Years [...] on file Sexual Orientation Not on file Obstetrics History Last Filed Vital Signs Vital Sign Reading Time Taken Comments Blood Pressure 143/89 01/12/2025 2:06 PM EDT Pulse 95 01/12/2025 2:06 PM EDT Temperature 36.8 C (98.2 F) 01/12/2025 1:57 PM EDT Respiratory Rate 16 01/12/2025 2:06 PM EDT Oxygen Saturation 97% 01/12/2025 1:57 PM EDT Inhaled Oxygen Concentration - - Weight 87.3 kg (192 lb 7 oz) 01/12/2025 8:20 AM EDT Height 157.5 cm (5' 2 ) 12/30/2024 12:35 PM EDT Body Mass Index 35.2 12/30/2024 12:35 PM EDT Plan of Treatment Upcoming Encounters Date Type Department Care Team (Late st Contact Info) Description 03/16/2025 1:00 PM EDT Office Visit [facility] [address] [phone] Grover Ware MD [address] [phone] 07/04/2025 11:15 AM EST Office Visit [facility] [address] [place] [address] Haley Suresh MD [address] [place] [address] 07/15/2025 9:30 AM EST [place]ment [place] [address] Health Maintenance Due Date Last Done Comments Pneumococcal Vaccine 50+ (1 of 2 - PCV) 10/02/1982 Colonoscopy 10/02/2008 FIT 10/02/2008 Sigmoidoscopy 10/02/2008 Virtual Colonography 10/02/2008 Zoster (1 of 2) 10/02/2013 Cologuard 11/18/2021 11/18/2018 Colon Cancer Screening 11/18/2021 DTaP/TDaP/Td (2 - Td or Tdap) 09/14/2023 09/13/2013 RSV or 60+ (1 - Risk 60-74 years 1-dose series) 2023 COVID-19 Vaccine (2 - season) 2025 05/02/2021 Influenza Vaccine (#1) 2025 7 (Declined), 02/19/2016 (Declined), 02/03/2015 (Declined), Additional history exists Wellness Exam Medicare 07/30/2025 07/29/2024 Breast Cancer Screening 09/16/2026 09/17/19, 09/16/2024, 10/06/2020, Additional history exists Hepatitis C Screening Completed 10/22/2017 Hepatitis B Vaccine Aged Out No longe r eligible based on patient's age to complete this topic Meningococcal B Vaccine Aged Out No l onger eligible based on patient's age to complete this topic Goals Goal Patient Goal Type Associated Problems Recent Progress Patient-Stated? Author Blood Pressure < 140/90 Blood Pressure 143/89( 025 2:06 PM EDT) No Unique Adan RMA Eat better, exercise, reach an ideal body weight General No Kun Gaitan RMA Procedures Procedure Name Priority Date/Time Associated Diagnosis Comments XR CHEST PA AND LATERAL Routine 02/02/2025 10:49 AM EDT Chronic cough C-REACTIVE PROTEIN Routine 02/02/2025 10 :37 AM EDT Medication monitoring encounter High risk medication use COMPREHENSIVE METABOLIC PANEL Routine 02/02/2025 10:37 AM EDT Essential hypertension SEDIMENTATION RATE AUTOMATED Routine 02/02/2025 10:37 AM EDT Encounter for long-term (current) use of high-risk medication CBC WITH DIFF Routine 02/02/2025 10:37 AM EDT Encounter for long-term (current) use of high-risk medication C-REACTIVE PROTEIN CECILE 01/12/2025 8: 44 AM EDT Rheumatoid arthritis involving multiple sites with positive rheumatoid factor (HCC) SEDIMENTATION RATE AUTOMATED CECILE 01/12/2025 8:44 AM EDT Rheumatoid arthritis involving multiple sites with positive rheumatoid factor (HCC) CBC WITH DIFF STAT 01/12/2025 8:44 AM EDT Rheumatoid arthritis involving multiple sites with positive rheumatoid factor (HCC) COMPREHENSIVE METABOLIC PANEL CECILE 01/12/2025 8:44 AM EDT Rheumatoid arthritis involving multiple sites with positive rheumatoid factor (HCC) PULMONARY FUNCTION TEST Routine 12/30/2024 2:35 PM EDT Chronic cough CT CHEST WO CONTRAST Routine 12/30/2024 10:33 AM EDT Chronic cough COMPREHENSIVE METABOLIC PANEL Routine 12/16/2024 11:23 AM EDT Essential hypertension Hypothyroidism (acquired) CBC Routine 12/16/2024 11:23 AM EDT Essential hypertension Hypothyroidism (acquired) LIPID PANEL REFLEX Routine 12/16/2024 11 :23 AM EDT Essential hypertension Hypothyroidism (acquired) THYROID STIMULATING HORMONE Routine 12/16/2024 11:23 AM EDT Essential hypertension Hypothyroidism (acquired) VITAMIN D 25 HYDROXY Routine 12/16/2024 11:23 AM EDT Essential hypertension Hypothyroidism (acquired) Vitamin D deficiency HCV ANTIBODY SCREEN W/ REFLEX Routine 10/22/2017 3:24 PM EDT Medicare annual wellness visit, subsequent Need for hepatitis C screening test HM MAMMOGRAPHY Routine 08/22/2017 from Last 3 Months or Most Recently Relevant to Health Maintenance Results * XR CHEST PA AND LATERAL [...] X-RAY, 02/02/2025 10:49 AM CLINICAL HISTORY: R05.3-Chronic [id number] COMPARISON: 08/26/2024 PROCEDURE COMMENTS: Frontal and lateral views of the chest. FINDINGS: Heart and mediastinal contours within normal limits for technique. No active failure, pneumonia, or visible effusion. No visible pneumothorax. Procedure Note Bartolo Milan MD - 02/02/2025 PA AND LATERAL CHEST X-RAY, 02/02/2025 10:49 AM CLINICAL HISTORY: R05.3-Chronic [id number] COMPARISON: 08/26/2024 PROCEDURE COMMENTS: Frontal and lateral views of the chest. FINDINGS: Heart and mediastinal contours within normal limits for technique. Noactive failure, pneumonia, or visible effusion. No visible pneumothorax. IMPRESSION: No acute finding. - Note: Radiology results need to be interpreted within a comprehensiveclinical context. If you have questions about the radiology report, please contactthe office of the ordering clinician. us Bean Herbert MD IMG DIAGNOSTIC IMAGING ORDER GARCIA Final Result * SEDIMENTATION RATE AUTOMATED (02/02/2025 10:37 AM EDT) Only the most recent of2 resultswithin the time period is included. Sed Rate 4 0 - 30 mm/hr 02/02/2025 3:37 PM EDT [facility] [employer] Blood VENOUS BLOOD / Unknown Venipuncture / Unknown 02/02/2025 10:37 AM EDT 02/02/2025 10:37 AM EDT us Haley Suresh MD HEMATOLOGY ORDERABLES Final R esult [facility] [address] [facility] , [place] [address] * CBC WITH DIFF (02/02/2025 10:37 AM EDT) Only the most recent of2 resultswithin the time period is included. WBC 6.1 3.7 - 10.3 x10(3)/mcL 02/02/2025 3:37 PM EDT [facility] RBC 4.52 3.90 - 5.20 x10(6)/mcL 02/02/2025 3:37 PM EDT [facility] Hgb 13.6 11.2 - 15.7 g/dL 02/02/2025 3:37 PM EDT [facility] Hct 42.0 34.0 - 45.0 % 02/02/2025 3:37 PM EDT [facility] MCV 92.9 80.0 - 100.0 fL 02/02/2025 3:37 PM EDT [facility] MCH 30.1 26.0 - 34.0 pg 02/02/2025 3:37 PM EDT [facility] MCHC 32.4 30.7 - 35.5 g/dL 02/02/2025 3:37 PM EDT [facility] RDW 12.9 <=14.9 % 02/02/2025 3:37 PM EDT [facility] Platelet 281 155 - 369 x10(3)/mcL 02/02/2025 3:37 PM EDT [facility] MPV 10.7 8.8 - 12.5 fL 02/02/2025 3:37 PM EDT [facility] Neut Percent 50.1 % 02/02/2025 3:37 PM EDT [facility] Comment:Neutrophils equals s egs plus bands Imm Gran% 0.2 % 02/02/2025 3:37 PM EDT [facility] Comment:Automated count of m etamyelocytes, myelocytes and promyelocytes. Lymph Percent 37.8 % 02/02/2025 3:37 PM EDT [facility] Charles Mix Percent 8.4 % 02/02/2025 3:37 PM EDT [facility] Eos Percent 2.5 % 02/02/2025 3:37 PM EDT [facility] Baso Percent 1.0 % 02/02/2025 3:37 PM EDT [facility] Neut # 3.1 1.6 - 6.1 x10(3)/[facility] 02/02/2025 3:37 PM EDT [facility] Comment:Neutrophils equals s egs plus bands IMMGRAN# 0.0 0.0 - 0.1 x10(3)/[facility] 02/02/2025 3:37 PM EDT [facility] Comment:Automated count of m etamyelocytes, myelocytes and promyelocytes. An absolute IG <0.1 is reported as 0.0. Lymph # 2.3 1.2 - 3.9 x10(3)/[facility] 02/02/2025 3:37 PM EDT [facility], [facility] [employer] # 0.5 0.3 - 0.9 x10(3)/[facility] 02/02/2025 3:37 PM EDT [facility], [facility] Eos# 0.2 0.0 - 0.5 x10(3)/[facility] 02/02/2025 3:37 PM EDT [facility] Baso # 0.1 0.0 - 0.1 x10(3)/[facility] 02/02/2025 3:37 PM EDT [facility] Blood VENOUS BLOOD / Unknown Venipuncture / Unknown 02/02/2025 10:37 AM EDT 02/02/2025 10:37 AM EDT us Haley Suresh MD HEMATOLOGY ORDERABLES Final R esult [facility] [address] [facility] , [address] [place] [id number] * C-REACTIVE PROTEIN (02/02/2025 10:37 AM EDT) Only the most recent of2 resultswithin the time period is included. CRP <3.00 <=5.00 mg/L 02/02/2025 5:13 PM EDT [facility] [employer], [facility] Blood VENOUS BLOOD / Unknown Venipuncture / Unknown 02/02/2025 10:37 AM EDT 02/02/2025 10:37 AM EDT us Haley Suresh MD CHEMISTRY ORDERABLES Final Re sult [facility] [address] [facility] , [place] [address] * (ABNORMAL) COMPREHENSIVE METABOLIC PANEL (02/02/2025 10:37 AM EDT) Only the most recent of3 resultswithin the time period is included. Sodium 141 136 - 145 mmol/L 02/02/2025 5:13 PM EDT [facility] Potassium 4.6 3.5 - 5.0 mmol/L 02/02/2025 5:13 PM EDT [facility] Chloride 103 98 - 107 mmol/L 02/02/2025 5:13 PM EDT [facility] Total CO2 27 22 - 29 mmol/L 02/02/2025 5:13 PM EDT [facility] Anion Gap 11 7 - 16 mmol/L 02/02/2025 5:13 PM EDT [facility] Calcium 9.6 8.8 - 10.4 mg/dL 02/02/2025 5:13 PM EDT [facility] Glucose Lvl 104(H) 70 - 99 mg/dL 02/02/2025 5:13 PM EDT [facility] BUN 13 8 - 23 mg/dL 02/02/2025 5:13 PM EDT [facility] Creatinine 0.82 0.51 - 1.30 mg/dL 02/02/2025 5:13 PM EDT [facility] Albumin 4.4 3.2 - 4.6 gm/dL 02/02/2025 5:13 PM EDT [facility] Total Protein 7.1 6.4 - 8.3 gm/dL 02/02/2025 5:13 PM EDT [facility] Bili Total 0.3 0.2 - 1.3 mg/dL 02/02/2025 5:13 PM EDT [facility] ALT 26 <=41 U/L 02/02/2025 5:13 PM EDT [facility] AST 23 <=40 U/L 02/02/2025 5:13 PM EDT [facility] Alk Phos 75 36 - 123 U/L 02/02/2025 5:13 PM EDT [facility] [employer] [facility] eGFR (CKD-EPIcr 2020) 81 >=60 mL/min/1.7 3 m2 02/02/2025 5:13 PM EDT [facility] [employer] [facility] Comment:Estimated GFR was ca lculated using the CKD-EPIcr (2020) equation refit without race. The equation is recommended by the National Kidney Foundation - [place] Society of Nephrology Task Force. Blood VENOUS BLOOD / Unknown Venipuncture / Unknown 02/02/2025 10:37 AM EDT 02/02/2025 10:37 AM EDT us Bean Herbert MD CHEMISTRY ORDERABLES Final R esult [facility] [employer] [facility] [address] [facility] , [place] [address] * PULMONARY FUNCTION TEST (12/30/2024 2:35 PM EDT) FVC_PRE 2.30 1.97 - 3.49 L 12/30/2024 4:37 PM EDT [facility] FEV1_PRE 2.03 1.56 - 2.76 L 12/30/2024 4:37 PM EDT [facility] FEV1/FVC_PRE 88.36 67.96 - 90.10 % 12/30/2024 4:37 PM EDT [facility] Hb_PRE 13.70 g(Hb)/dL 12/30/2024 4:37 PM EDT [facility] ERV_PRE 0.53 0.25 - 1.49 L 12/30/2024 4:37 PM EDT [facility] RV_PRE 1.76 1.00 - 2.46 L 12/30/2024 4:37 PM EDT [facility] RV%TLC_PRE 42.92 22.95 - 45.65 % 12/30/2024 4:37 PM EDT [facility] TLC_PRE 4.10 3.83 - 5.77 L 12/30/2024 4:37 PM EDT [facility] FVC_Pre%REF 85 % 12/30/2024 4:37 PM EDT [facility] FEV1_Pre%REF 93 % 12/30/2024 4:37 PM EDT [facility] RV_Pre%REF 108 % 12/30/2024 4:37 PM EDT [facility] TLC_Pre%REF 86 % 12/30/2024 4:37 PM EDT [facility] ERV_Pre%REF 70 % 12/30/2024 4:37 PM EDT [facility] 12/30/2024 2:35 PM EDT Impressions [facility] - 12/30/2024 4:37 PM EDT No Obstruction Normal volumes Normal diffusion Grover Ware MD [facility] us Bean Herbert MD PFT ORDERABLES Final Result [facility] [address] [place] [id number] * CT CHEST WO CONTRAST (12/30/2024 10:33 [...] CONTRAST, 12/30/2024 10:33 AM CLINICAL HISTORY: R05.3-Chronic [id number] COMPARISON: Chest radiograph 08/26/2024. PROCEDURE COMMENTS: Multi-detector [...] no intrathoracic lymphadenopathy or acute osseous abnormality. us Bean Herbert MD IMG CT ORDERABLES Final Resu lt * (ABNORMAL) LIPID PANEL REFLEX (12/16/2024 11:23 AM EDT) Cholesterol 311(H) <200 mg/dL 12/16/2024 4:07 PM EDT [facility] Comment: < 200 Desirable 200 - 239 Borderline High >= 240 High Triglyceride 388(H) <150 mg/dL 12/16/2024 4:07 PM EDT [facility] Comment: < 150 Normal 150 - 199 Borderline High 200 - 499 High >= 500 Very High HDL 23(L) >=40 mg/dL 12/16/2024 4:07 PM EDT [facility] Comment: > 60 Optimal 40 - 60 Acceptable < 40 Low LDL Calculated 207(H) <100 mg/dL 12/16/2024 4:07 PM EDT [facility] Comment: < 100 Optimal 100 - 129 Near or above optimal 130 - 159 Borderline High 160 - 189 High >= 190 Very High The National Institutes of Health (NIH) equation is used for all lipid panels that report calculated LDL (LDL-C). Non-HDL-C Calculated 288(H) <=129 mg/dL 12/16/2024 4:07 PM EDT [facility] Comment: <130 Desirable 130-159 Above Desirable 160-189 Borderline High 190-219 High >= 220 Very High Fasting Specimen? Unknown None 025 4:07 PM EDT [facility] Blood VENOUS BLOOD / Unknown Venipuncture / Unknown 12/16/2024 11:23 AM EDT 12/16/2024 11:23 AM EDT us Bean Herbert MD CHEMISTRY ORDERABLES Final R esult [facility] [address] [facility] , [place] [address] * CBC (12/16/2024 11:23 AM EDT) WBC 6.6 3.7 - 10.3 x10(3)/mcL 12/16/2024 3:51 PM EDT [facility], [facility] RBC 4.60 3.90 - 5.20 x10(6)/mcL 12/16/2024 3:51 PM EDT [facility], [facility] Hgb 13.7 11.2 - 15.7 g/dL 12/16/2024 3:51 PM EDT [facility], [facility] Hct 41.2 34.0 - 45.0 % 12/16/2024 3:51 PM EDT [facility], [facility] MCV 89.6 80.0 - 100.0 fL 12/16/2024 3:51 PM EDT [facility], [facility] MCH 29.8 26.0 - 34.0 pg 12/16/2024 3:51 PM EDT [facility], [facility] MCHC 33.3 30.7 - 35.5 g/dL 12/16/2024 3:51 PM EDT [facility], [facility] RDW 13.1 <=14.9 % 12/16/2024 3:51 PM EDT [facility] Platelet 234 155 - 369 x10(3)/mcL 12/16/2024 3:51 PM EDT [facility], [facility] MPV 10.9 8.8 - 12.5 fL 12/16/2024 3:51 PM EDT [facility], [facility] Blood VENOUS BLOOD / Unknown Venipuncture / Unknown 12/16/2024 11:23 AM EDT 12/16/2024 11:23 AM EDT us Bean Herbert MD HEMATOLOGY ORDERABLES Final Result [facility], [facility] [address] [facility] , [address] [place] [id number] * (ABNORMAL) VITAMIN D 25 HYDROXY (12/16/2024 11:23 AM EDT) Vit D 25 OH 27.0(L) 30.0 - 150.0 ng/mL 12/16/2024 4:15 PM EDT [facility] Comment: Preferred: >= 30 ng/mL Insufficient: 21-29 ng/mL Deficient <= 20 ng/mL Possible Toxicity: >150 ng/mL Samples should not be taken from patients receiving therapy with high biotin doses (i.e. > 5 mg/day) until at least 8 hours following the last biotin administration. Blood VENOUS BLOOD / Unknown Venipuncture / Unknown 12/16/2024 11:23 AM EDT 12/16/2024 11:23 AM EDT Bean Herbert MD CHEMISTRY ORDERABLES Final R esult Performing Organization Address [facility] de Phone Number [facility] [employer] [address] , [place] [phone] * THYROID STIMULATING HORMONE (12/16/2024 11:23 AM EDT) [facility] TSH 3.890 0.270 - 4.200 mcIU/mL 12/16/2024 4:07 PM EDT [facility] [employer] [facility] Blood VENOUS BLOOD / Unknown Venipuncture / Unknown 12/16/2024 11:23 AM EDT 12/16/2024 11:23 AM EDT Narrative [facility] [employer] [facility] - 12/16/2024 4:07 PM EDT Ingestion of farnaz doses of biotin (>5 mg/day) taken within 8 hours of drawing blood sample can interfere with this immunoassay test. us Bean Herbert MD CHEMISTRY ORDERABLES Final R esult Performing Organization Address [facility] de Phone Number [facility] [employer] [address] [place] [address] [place] [address] * HEPATITIS C ANTIBODY - SCREENING (10/22/2017 3:24 PM EDT) [facility] Hep C Ab Negative Negative 10/23/2017 10:12 AM EDT [facility] Blood VENOUS BLOOD / Unknown Venipuncture / Unknown 10/22/2017 3:24 PM EDT 10/22/2017 3:25 PM EDT us Bean Herbert MD HEMATOLOGY ORDERABLES Final Result Performing Organization Address [facility] Co de Phone Number [facility] [address] [place] [address] * HM MAMMOGRAPHY (08/22/2017) Impressions SEP OFFICE - 08/22/2017 Negative us Historical Provider HEALTH MAINTENANCE Final Res ult SEP OFFICE from Last 3 Months or Most Recently Relevant to Health Maintenance Insurance [employer] MED[employer]ARE ADVANTAGE MR on file [employer] MED[employer]VANTAGE MR on file [employer] MEDICARE ADVANTAGE MR on file Care Teams Dust Operator Relationship Specialty Start Date End Date Bean Herbert MD [address] [place] [address] [address] [place] [address] PCP - General 04/12/09 Haley Suresh MD [address] [place] [address] Internal Medicine-Rheumatology 11/04/22
--- OUTSIDE RECORDS SUMMARY | 2025-02-24 11:23 | XMS_ITS | Encounter Summary ---
Author Organization [place] [address] Care Team Providers Care Titrator Name Role Phone Bean Herbert MD Primary Care Provider [phone] Haley Suresh MD Unavailable [phone] Reason for Visit * Reason Comments Medication Refill Encounter Details Date Type Department Care Team (Late st Contact Info) Description 12/29/2024 Refill SEP [facility] [address] [place] [address] Bean Herbert MD [address] [place] [phone] Medication Refill Social History Tobacco Use [...] of Assessment Author No 07/29/2024 12:36 PM EST Galloway, Adeola Rai VI * Is the person blind or does he/she have serious difficulty seeing even when wearing glasses? Answer Date of Assessment Author No 07/29/2024 12:36 PM Adeola Kwong Cecelia VI * Does this person have serious difficulty walking or climbing stairs? Answer Date of Assessment Author No 07/29/2024 12:36 PM CRISSY Galloway Edcarmita Rai VI * Does this person have difficulty dressing or bathing? Answer Date of Assessment Author No 07/29/2024 12:36 PM Adeola Kwong CeceliaVI * Because of a physical, mental or emotional condition, does this person have difficulty doing errands alone such as visiting a doctor's office or shopping? Answer Date of Assessment Author No 07/29/2024 12:36 PM Adeola Kwong CeceliaVI documented as of this encounter Mental Status * Because of a physical, mental or emotional condition, does this person have serious difficulty concentrating, remembering or making decisions? Answer Entry Date Author No 07/29/2024 12:36 PM CRISSY Galloway Adeola Cecelia VI documented in this encounter Ordered Prescriptions Prescription Sig Dispense Quantity Refills Last Filled Start Date End Date ketoconazole (NIZORAL) 2 % Top ShampooIndications :Rash APPLY TOPICALLY THREE TIMES A WEEK 120 mL 1 12/29/2024 documented in this encounter Plan of Treatment Upcoming Encounters Date Type Department Care Team (Late st Contact Info) Description 03/16/2025 1:00 PM EDT Office Visit SEP Pulmonology [facility] [address] [phone] Grover Ware MD [address] [address] 07/04/2025 11:15 AM EST Office Visit [facility] [address] [place] [address] Haley Suresh MD [address] [place] [address] 07/15/2025 9:30 AM EST Appointment [facility] [place] [phone] documented as of this encounter Goals Goal [...] Top ShampooIndications:Rash Apply topically Three times weekly. 08/05/2024 12/29/2024 documented as of this encounter Care Teams Titrator Relationship Specialty Start Date End Date Bean Herbert MD [address] [place] [phone] PCP - General 04/12/09 Haley Suresh MD [address] [place] [id number] Internal Medicine-Rheumatology 11/04/22 documented as of this encounter
--- OUTSIDE RECORDS SUMMARY | 2025-02-24 11:23 | XMS_ITS | Encounter Summary ---
Author Organization [place] [address] Care Team Providers Care Literature Teacher Name Role Phone Bean Herbert MD Primary Care Provider [phone] Haley Suresh MD Unavailable [phone] Encounter Details Date Type Department Care Team (Late st Contact Info) Description 02/02/2025 Results Follow-Up [facility] [address] [place] [address] Bean Herbert MD [address] [facility] [address] [place] [address] XR CHEST PA AND LATERAL Social History Tobacco Use Types Packs/Day Years [...] 07/29/2024 12:36 PM Adeola Kwong VI * Is the person blind or does he/she have serious difficulty seeing even when wearing glasses? Answer Date of Assessment Author No 07/29/2024 12:36 PM CRISSY Galloway Adeola Rai VI * Does this person have serious difficulty walking or climbing stairs? Answer Date of Assessment Author No 07/29/2024 12:36 PM CRISSY Galloway Adeola Rai VI * Does this person have difficulty dressing or bathing? Answer Date of Assessment Author No 07/29/2024 12:36 PM CRISSY Galloway Adeola Rai VI * Because of a physical, mental or emotional condition, does this person have difficulty doing errands alone such as visiting a doctor's office or shopping? Answer Date of Assessment Author No 07/29/2024 12:36 PM CRISSY Galloway Adeola Cecelia VI documented as of this encounter Mental Status * Because of a physical, mental or emotional condition, does this person have serious difficulty concentrating, remembering or making decisions? Answer Entry Date Author No 07/29/2024 12:36 PM Adeola Kwong VI documented in this encounter Plan of Treatment Upcoming Encounters Date Type Department Care Team (Late st Contact Info) Description 03/16/2025 1:00 PM EDT Office Visit SEP Pulmonology [facility] [address] [phone] Grover Ware MD [address] [address] 07/04/2025 11:15 AM EST Office Visit [facility] [address] [place] [address] Haley Suresh MD [address] [place] [address] 07/15/2025 9:30 AM EST Appointment [place] [address] documented as of this encounter Goals Goal Patient Goal Type Associated Problems Recent Progress Patient-Stated? Author Blood Pressure < 140/90 Blood Pressure 143/89( 025 2:06 PM EDT) No Unique Adan RMA Eat better, exercise, reach an ideal body weight General No Kun Gaitan RMA documented as of this encounter Visit Diagnoses Not on filedocumented in this encounter Care Teams Literature Teacher Relationship Specialty Start Date End Date Bean Herbert MD [address] [place] [phone] PCP - General 04/12/09 Haley Suresh MD [address] [place] [address] Internal Medicine-Rheumatology 11/04/22 documented as of this encounter
--- OUTSIDE RECORDS SUMMARY | 2025-02-24 11:23 | XMS_ITS | Encounter Summary ---
Author Organization [place] [address] Care Team Providers Care Math Teacher Name Role Phone Bean Herbert MD Primary Care Provider [phone] Haley Suresh MD Unavailable [phone] Reason for Visit * Reason Onset Date Comments Reschedule 12/31/2024 Infusion Encounter Details Date Type Department Care Team (Late st Contact Info) Description 12/31/2024 [facility]phone [facility] [place] [address] Haley Suresh MD [address] [place] [address] Reschedule (Infusion ) Social History Tobacco Use Types Packs/Day Years [...] PM CRISSY Galloway Adeola Rai, VI * Is the person blind or does he/she have serious difficulty seeing even when wearing glasses? Answer Date of Assessment Author No 07/29/2024 12:36 PM Adeola Kwong Cecelia, VI * Does this person have serious difficulty walking or climbing stairs? Answer Date of Assessment Author No 07/29/2024 12:36 PM CRISSY Galloway Adeola Rai VI * Does this person have difficulty dressing or bathing? Answer Date of Assessment Author No 07/29/2024 12:36 PM CRISSY Galloway Adeola Rai, VI * Because of a physical, mental or emotional condition, does this person have difficulty doing errands alone such as visiting a doctor's office or shopping? Answer Date of Assessment Author No 07/29/2024 12:36 PM CRISSY Galloway Adeola Rai, VI documented as of this encounter Mental Status * Because of a physical, mental or emotional condition, does this person have serious difficulty concentrating, remembering or making decisions? Answer Entry Date Author No 07/29/2024 12:36 PM CRISSY Adeola Galloway, VI documented in this encounter Miscellaneous Notes * Telephone Encounter - Angelina Milan NA - 12/31/2024 1:30 PM EDT Pt has been r/s * Telephone Encounter - Angelina Milan NA - 12/31/2024 10:54 AM EDT All Visit type(s) needing rescheduled: Infusion Rituxan #1 1000mg Q2wks then 5mo from 1st one Exp 10/13/24 Suresh Current Visit Date: 01/11/2025 Appointment Rescheduled to Date: Pt requesting 01/12 if possible Reason for Rescheduling:Spouse has an appt Preferred call back number:[phone] Outside order Patient Cancelled via MyChart (I need to cancel this appointment on the to the 01-12 8:00am please you can please reschedule it for me my has to go get a shot in his back on the 12 so please change it to the next day on the 13 at 8:00am please ) To note: Pt stated that if she isnt able to answer the return call to put it on MyChart documented in this encounter Plan of Treatment Upcoming Encounters Date Type Department Care Team (Late st Contact Info) Description 03/16/2025 1:00 PM EDT Office Visit [facility] Pulmonology [facility] 651 [facility] 19 [place] [address] Grover Ware MD 651 [facility] 19 [place] [address] 07/04/2025 11:15 AM EST Office Visit [facility] [address] [place] [address] Haley Suresh MD [address] [place] [address] 07/15/2025 9:30 AM EST Appointment [place] [address] documented as of this encounter Goals Goal Patient Goal Type Associated Problems Recent Progress Patient-Stated? Author Blood Pressure < 140/90 Blood Pressure 143/89( 025 2:06 PM EDT) No Unique Adan RMA Eat better, exercise, reach an ideal body weight General No Kun Gaitan RMA documented as of this encounter Visit Diagnoses Not on filedocumented in this encounter Care Teams Math Teacher Relationship Specialty Start Date End Date Bean Herbert MD [address] [place] [address] [address] [place] [address] PCP - General 04/12/09 Haley Suresh MD [address] [place] [address] (work) Internal Medicine-Rheumatology 11/04/22 documented as of this encounter
--- OUTSIDE RECORDS SUMMARY | 2025-02-24 11:23 | XMS_ITS | Encounter Summary ---
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) Social History Tobacco Use Types Packs/Day Years [...] 1:00 PM EDT Office Visit [facility]P Pulmonology [facility] [address] [address] Grover Ware MD [address] [address] 07/04/2025 11:15 AM EST Office Visit [facility] [address] [place] [address] Haley Suresh MD [address] [place] [address] 07/15/2025 9:30 AM EST Appointment [facility] [place] [id number] documented as of this encounter Goals Goal [...] factor (HCC)- Primary documented in this encounter Care Teams Unscrambler Relationship Specialty Start Date End Date Bean Herbert MD [address] [place] [phone] PCP - General 04/12/09 Haley Surehs MD [address] [place] [address] Internal Medicine-Rheumatology 11/04/22 documented as of this encounter
--- OUTSIDE RECORDS SUMMARY | 2025-02-24 11:23 | XMS_ITS | Encounter Summary ---
Author Organization [place] [address] Care Team Providers Care Statue Carver Name Role Phone Bean Herbert MD Primary Care Provider [phone] Haley Suresh MD Unavailable [phone] Reason for Visit * Reason Onset Date Comments Medication Refill 12/30/2024 Encounter Details Date Type Department Care Team (Late st Contact Info) Description 12/30/2024 Refill [facility] [address] [place] [address] Bean Herbert MD [address] [address] Medication Refill Social History Tobacco [...] 07/29/2024 12:36 PM CRISSY Adeola Galloway, VI * Is the person blind or [...] 07/29/2024 12:36 PM CRISSY Adeola Galloway, VI * Because of a physical, mental or emotional condition, does this person have difficulty doing errands alone such as visiting a doctor's office or shopping? Answer Date of Assessment Author No 07/29/2024 12:36 PM Adeola Kwong VI documented as of this encounter Mental Status * Because of a physical, mental or emotional condition, does this person have serious difficulty concentrating, remembering or making decisions? Answer Entry Date Author No 07/29/2024 12:36 PM Adeola Kwong VI documented in this encounter Ordered Prescriptions Prescription Sig Dispense Quantity Refills Last Filled Start Date End Date albuterol-ipratropi um (DUO-NEB) 3 mg-0.5 mg(2.5 mg base)/3 mL Inhl Solution for NebulizationIndicat ions:Mild intermittent asthma without complication,Acute bronchitis due to respiratory syncytial virus Take 3 mL by nebulization every 6 hours as needed for Shortness of Breath. 1080 mL 5 ibuprofen (ADVIL;MOTRIN) 800 mg Oral TabletIndications:D egeneration of intervertebral disc of lumbar region, unspecified whether pain present Take 1 Tablet by mouth every 8 hours as needed for Pain. 30 Tablet 5 01/26/20 25 HYDROcodone-acetami nophen (NORCO) 10-325 mg Oral TabletIndications:F ibromyalgia,DDD (degenerative disc disease), lumbar,Degenerative disc disease, lumbar,Primary osteoarthritis of both knees,Osteoarthriti s of both knees, unspecified osteoarthritis type,Rheumatoid arthritis involving knee (HCC) Take 1 Tablet by mouth every 8 hours as needed for Chronic Pain (G89.29). 90 Tablet 5 01/26/20 25 documented in this encounter Miscellaneous Notes * Telephone Encounter - Adeola Galloway RMA - 12/30/2024 8:56 AM EDT 01/20/12 -Controlled Substance Treatment Agreement. 01/20/12 -Contract for Chronic Benzodiazepines. 01/20/12 -Contract for Chronic Opioids. 04/10/12 -SOAPP Score- 3 UDS OK 08/19/22 UDS OK 09/15/23 UDS OK 07/29/2024 11/18/[address] Herbert LF:12/02/2024 JOHN:12/16/2024 documented in this encounter Plan of Treatment Upcoming Encounters Date Type Department Care Team (Late st Contact Info) Description 03/16/2025 1:00 PM EDT Office Visit SEP Pulmonology [facility] [address] [address] Grover Ware MD [address] [address] 07/04/2025 11:15 AM EST Office Visit [facility] [address] [place] [address] Haley Suresh MD [address] [place] [address] 07/15/2025 9:30 AM EST Appointment [place] [address] documented as of this encounter Goals Goal Patient Goal Type Associated Problems Recent Progress Patient-Stated? Author Blood Pressure < 140/90 Blood Pressure 143/89( 025 2:06 PM EDT) No Unique Adan RMThu Eat better, exercise, reach an ideal body weight General No Kun Gaitan RMA documented as of this encounter Visit Diagnoses Diagnosis Mild intermittent asthma without complication Unspecified asthma Acute bronchitis due to respiratory syncytial virus Acute bronchitis Fibromyalgia Mylagia and myositis, unspecified Degeneration of intervertebral disc of lumbar region, unspecified whether pain present Degenerative disc disease, lumbar Degeneration of lumbar or lumbosacral intervertebral disc Primary osteoarthritis of both knees Primary localized osteoarthrosis, lower leg Osteoarthritis of both knees, unspecified osteoarthritis type Rheumatoid arthritis involving knee (HCC) documented in this encounter Discontinued Medications Medication Sig Discontinue Reason Start Date End Da te albuterol-ipratropium (DUO-NEB) 3 mg-0.5 mg(2.5 mg base)/3 mL Inhl Solution for NebulizationIndications :Mild intermittent asthma without complication,Acute bronchitis due to respiratory syncytial virus Take 3 mL by nebulization every 6 hours as needed for Shortness of Breath. Reorder 11/11/2024 12/30/2024 ibuprofen (ADVIL;MOTRIN) 800 mg Oral TabletIndications:Degen eration of intervertebral disc of lumbar region, unspecified whether pain present Take 1 Tablet by mouth every 8 hours as needed for Pain. Reorder 12/08/2024 12/30/2024 HYDROcodone-acetaminoph en (NORCO) 10-325 mg Oral TabletIndications:Fibro myalgia,DDD (degenerative disc disease), lumbar,Degenerative disc disease, lumbar,Primary osteoarthritis of both knees,Osteoarthritis of both knees, unspecified osteoarthritis type,Rheumatoid arthritis involving knee (HCC) Take 1 Tablet by mouth every 8 hours as needed for Chronic Pain (G89.29). Reorder 12/01/2024 12/30/2024 documented as of this encounter Care Teams Statue Carver Relationship Specialty Start Date End Date Bean Herbert MD [address] [place] [phone] PCP - General 04/12/09 Haley Suresh MD [address] [place] [address] Internal Medicine-Rheumatology 11/04/22 documented as of this encounter
--- OUTSIDE RECORDS SUMMARY | 2025-02-24 11:23 | XMS_ITS | Encounter Summary ---
Author Organization [place] [address] Care Team Providers Care Field Administrative Assistant Name Role Phone Bean Herbert MD Primary Care Provider [phone] Haley Suresh MD Unavailable [phone] Reason for Visit * Reason Onset Date Comments Reschedule 01/17/2025 Reschedule Encounter Details Date Type Department Care Team (Late st Contact Info) Description 01/17/2025 Telephone [facility] [place] [address] Haley Suresh MD [address] [place] [address] Reschedule (Reschedule) Social History Tobacco Use Types Packs/Day Years [...] of Assessment Author No 07/29/2024 12:36 PM Adeoal Kwong RMA * Because of a physical, [...] Date Author No 07/29/2024 12:36 PM Adeola KwongnVI documented in this encounter Miscellaneous Notes * Telephone Encounter - Carmita Jacobs Clerical Staff - 01/17/2025 1:51 PM EDT Detailed visit type(s) needing cancelled or rescheduled: Rituxan #2 1000mg Q2wks then 5mo from one Exp 10/13/24 Kerwin Current visit date: 01/26 Ordering provider: Kerwin Reason for cancelling or rescheduling: Change of orders Appointment(s) rescheduled to date(s): Preferred call back number: documented in this encounter Plan of Treatment Upcoming Encounters Date Type Department Care Team (Late st Contact Info) Description 03/16/2025 1:00 PM EDT Office Visit [facility] Pulmonology [facility] [address] [phone] Grover Ware MD 651 [facility] Building [address] [place] [address] 07/04/2025 11:15 AM EST Office Visit [facility] [address] [place] [address] Haley Suresh MD [address] [place] [address] 07/15/2025 9:30 AM EST Appointment [place] [address] documented as of this encounter Goals Goal Patient Goal Type Associated Problems Recent Progress Patient-Stated? Author Blood Pressure < 140/90 Blood Pressure 143/89( 025 2:06 PM EDT) No Unique Adan, RMA Eat better, exercise, reach an ideal body weight General No Kun Gaitan RMA documented as of this encounter Visit Diagnoses Not on filedocumented in this encounter Care Teams Field Administrative Assistant Relationship Specialty Start Date End Date Bean Herbert MD 119 [facility] [address] [place] [phone] PCP - General 04/12/09 Haley Suresh MD [address] [place] [address] Internal Medicine-Rheumatology 11/04/22 documented as of this encounter
--- OUTSIDE RECORDS SUMMARY | 2025-02-24 11:23 | XMS_ITS | Encounter Summary ---
Author Organization [place] [address] Care Team Providers Care Pricing Coordinator Name Role Phone Bean Herbert MD Primary Care Provider [phone] Haley Suresh MD Unavailable [phone] Reason for Visit * Reason Onset Date Comments Medication Refill 12/30/2024 Encounter Details Date Type Department Care Team (Late st Contact Info) Description 12/30/2024 Refill SEP [facility] [address] [place] [address] Bean Herbert MD [address] [address] Medication Refill Social History Tobacco [...] topically Three times weekly. 120 mL 1 12/30/2024 documented in this encounter Plan of Treatment Upcoming Encounters Date Type Department Care Team (Late st Contact Info) Description 03/16/2025 1:00 PM EDT Office Visit [facility] Pulmonology [facility] [address] [address] Grover Ware MD [address] [address] 07/04/2025 11:15 AM EST Office Visit [facility] [address] [place] [address] Haley Suresh MD [address] [place] [address] 07/15/2025 9:30 AM EST Appoint[place] [address] documented as of this encounter [...] te ketoconazole (NIZORAL) 2 % Top ShampooIndications:Rash APPLY TOPICALLY THREE TIMES A WEEK Reorder 12/29/2024 12/30/2024 documented as of this encounter Care Teams Pricing Coordinator Relationship Specialty Start Date End Date Bean Herbert MD [address] [place] [phone] PCP - General 04/12/09 Haley Suresh MD [address] [place] [address] Internal Medicine-Rheumatology 11/04/22 documented as of this encounter
--- OUTSIDE RECORDS SUMMARY | 2025-02-24 11:23 | XMS_ITS | Encounter Summary ---
Author Organization [facility] Address [address] [place] [address] Care Team Providers Care Radiology Physician Name Role Phone Bean Herbert MD Primary Care Provider Source Comments This information has been disclosed to you from confidential records protectfrom disclosure by state law. You shall make no further disclosure of thisinformation without the specific, written, and informed release of theindividual to whom it pertains, or as otherwise permitted by law. A generalauthorization for the release of medical or other information is not sufficientfor the purposes of the release of HIV test results or diagnoses. [id number] Health Encounter Details Date Type Department Care Team (Late st Contact Info) Description 04/30/2016 Orders Only [facility] [address] [place] [address] Bean Herbert MD [address] [address] Screening breast examination (Primary Dx) Social History Tobacco Use Types Packs/Day Years Used Date Smoking Tobacco: Never Comments:09-26-2008 Alcohol Use Standard Drinks/Week Comments No 0 (1 standard drink = 0.6 oz pur e alcohol) 09-26-2008 Comments No Sex and Gender Information Value Date Recorded Sex Assigned at Not on file Legal Sex Female 2:16 PM EST Gender Identity Not on file Sexual Orientation Not on file documented as of this encounter Plan of Treatment Not on file documented as of this encounter Visit Diagnoses Diagnosis Screening breast examination- Primary Other screening breast examination documented in this encounter Care Teams Radiology Physician Relationship Specialty Start Date End Date Bean Herbert MD [address] [facility] [address] [place] [address] PCP - General 08/27/06 documented as of this encounter
--- OUTSIDE RECORDS SUMMARY | 2025-02-24 11:23 | XMS_ITS | Encounter Summary ---
Author Organization [facility] Address [address] [place] [address] Care Team Providers Care Manufacturing Worker Name Role Phone Bean Herbert MD Primary Care Provider [phone] Haley Suresh MD Unavailable [phone] Reason for Visit * Reason Onset Date Comments Biologic Dose/freq Change 12/30/2024 RTX (D OSING CHANGE) Encounter Details Date Type Department Care Team (Late st Contact Info) Description 12/30/2024 Telephone [facility] [address] [place] [address] Haley Suresh MD [address] [place] [address] Biologic Dose/freq Change (RTX (DOSING CHANGE)) Social History Tobacco Use Types Packs/Day Years [...] No 07/29/2024 12:36 PM CRISSY Adeola Galloway, RMA * Does this person have serious difficulty walking or climbing stairs? Answer Date of Assessment Author No 07/29/2024 12:36 PM Adeola Kwong, RMA * Does this person have difficulty dressing or bathing? Answer Date of Assessment Author No 07/29/2024 12:36 PM CRISSY Adeola Galloway, JODYA * Because of a physical, mental [...] encounter Miscellaneous Notes * Telephone Encounter - Leticia Roche Clerical Staff - 12/30/2024 3:56 PM EDTSummary: RTX DOSE CHANGE Dr. Beck: You may be able to edit the current therapy plan to make the dosing as 1000 mg Q5 months. If that isn't possible, you may need to end the current therapy plan and create a new therapy plan with the correct dose. Will * Telephone Encounter - Leticia Roche Clerical Staff - 12/30/2024 3:56 PM EDT ----- Message from Haley Suresh MD sent at 12/30/2024 3:09 PM EDT ----- [facility]. I want to change the Rituxan to 1000 mg single dose every 5 months. How do I go about doing that? Thx documented in this encounter Plan of Treatment Upcoming Encounters Date Type Department Care Team (Late st Contact Info) Description 03/16/2025 1:00 PM EDT Office Visit [facility] Pulmonology [facility] [address]51 [facility] 19 [place] [address] Grover Ware MD 651 [facility] [address] [place] [address] 07/04/2025 11:15 AM EST Office Visit [facility] [address] [place] [address] Haley Suresh MD [address] [place] [address] 07/15/2025 9:30 AM EST Appointment [facility] [place] [phone] documented as of this encounter Goals Goal Patient Goal Type Associated Problems Recent Progress Patient-Stated? Author Blood Pressure < 140/90 Blood Pressure 143/89( 025 2:06 PM EDT) No Unique Adan, RMA Eat better, exercise, reach an ideal body weight General No Kun Gaitan RMA documented as of this encounter Visit Diagnoses Not on filedocumented in this encounter Care Teams Manufacturing Worker Relationship Specialty Start Date End Date Bean Herbert MD 119 [facility] [address] [phone] PCP - General 04/12/09 Haley Suresh MD [address] [place] [address] Internal Medicine-Rheumatology 11/04/22 documented as of this encounter
--- OUTSIDE RECORDS SUMMARY | 2025-02-24 11:23 | XMS_ITS | Encounter Summary ---
Author Organization [place] [address] Care Team Providers Care Information Systems Analyst Name Role Phone Bean Herbert MD Primary Care Provider [phone] Haley Suresh MD Unavailable [phone] Reason for Visit * Reason Onset Date Comments Symptoms (Only Use If Pt Pushes Back On Scheduli ng A Visit) 01/14/2025 Cough Encounter Details Date Type Department Care Team (Late st Contact Info) Description 01/14/2025 Telephone [facility] [address] [place] [address] Bean Herbert MD [address] [place] [address] Symptoms (Only Use If Pt Pushes Back On Scheduling A Visit) (Cough ) Social History Tobacco Use Types Packs/Day [...] Author No 07/29/2024 12:36 PM Adeola Kwong RMThu * Is the person blind or does he/she have serious difficulty seeing even when wearing glasses? Answer Date of Assessment Author No 07/29/2024 12:36 PM Adeola Kwong JODYA * Does this person have serious difficulty walking or climbing stairs? Answer Date of Assessment Author No 07/29/2024 12:36 PM Adeola Kwong JODYA * Does this person have difficulty [...] encounter Miscellaneous Notes * Telephone Encounter - Falguni Encarnacion RN - 01/14/2025 5:02 PM EDT pt returning call. message was left for pt recommending appointment. cough is so bad still not able to sleep. unsure when she can get in due to husbands schedule. * Telephone Encounter - Duc Brandt MA - 01/14/2025 4:58 PM EDT tried to call pt, heard tone then silence, Tried to leave vmrco , not sure if it recorded or not * Telephone Encounter - Kayla Cali MD - 01/14/2025 4:51 PM EDT Recommend appt * Telephone Encounter - Marty Hernandez RMA - 01/14/2025 11:32 AM EDT Select the most appropriate reason for this telephone message: Symptoms Call Who is reporting the symptoms: Patient What symptom(s) is the patient experiencing: cough How long have symptoms been present: on since July Has the patient been seen for this:Yes Has the patient tried anything to relieve the symptoms and did it help: Yes Rx cough med did not help If pain, what level on scale 1-10 (10 being the greatest): No pain Desired Outcome: Advice and Rx Pharmacy & Location:[id number] [place] [address] [phone] [[id number]] Return Method of Communication: Phone Call Was patient transferred to Nurse Triage for additional help? N/A Additional Information: Please Advise Patient/Caller, thank you. documented in this encounter Plan of Treatment Upcoming Encounters Date Type Department Care Team (Late st Contact Info) Description 03/16/2025 1:00 PM EDT Office Visit SEP Pulmonology [facility] [address] [phone] Grover Ware MD [address] [phone] 07/04/2025 11:15 AM EST Office Visit [facility] [address] [place] [address] Haley Suresh MD [address] [place] [phone] 07/15/2025 9:30 AM EST [place]ment [place] [address] documented as of this encounter Goals Goal Patient Goal Type Associated Problems Recent Progress Patient-Stated? Author Blood Pressure < 140/90 Blood Pressure 143/89( 025 2:06 PM EDT) No Unique Adan RMA Eat better, exercise, reach an ideal body weight General No Kun Gaitan RMA documented as of this encounter Visit Diagnoses Not on filedocumented in this encounter Care Teams Information Systems Analyst Relationship Specialty Start Date End Date Bean Herbert MD [address] [place] [phone] PCP - General 04/12/09 Haley Suresh MD [address] [place] [address] Internal Medicine-Rheumatology 11/04/22 documented as of this encounter
--- OUTSIDE RECORDS SUMMARY | 2025-02-24 11:23 | XMS_ITS | Encounter Summary ---
Author Organization [facility] Address [address] [place] [address] Care Team Providers Care Streetcar Repairer Helper Name Role Phone Bean Herbert MD Primary Care Provider [phone] Haley Suresh MD Unavailable [phone] Reason for Visit * Reason Onset Date Comments Biologic Dose/freq Change 01/17/2025 Rituxa n - 1000mg (x1) Q 6 months Encounter Details Date Type Department Care Team (Late st Contact Info) Description 01/17/2025 Telephone [facility] [address] [place] [address] Angie Orozco, Clerical Staff Biologic Dose/freq Change (Rituxan - 1000mg (x1) Q 6 months) Social History Tobacco Use Types Packs/Day Years [...] Miscellaneous Notes * Telephone Encounter - Leticia Roche, Luisrical Staff - 01/19/2025 3:08 PM EDTSumchris: OREN RTX scheduled 07/15/24 @ [facility]. * Telephone Encounter - Angie Orozco, Luisrical Staff - 01/17/2025 10:48 AM EDT Patient has been informed about dosing and frequency change. Patient has expressed understanding. [facility]: Please see message below from Dr Suresh in regard to Rituxan dosing and frequency. Rituxan 1000mg(x1) Q 6 months. There has been a new therapy plan created with the doctor note provided. Thank you, Angie * Telephone Encounter - Angie Orozco, Luisrical Staff - 01/17/2025 10:44 AM EDT This is the new Rituxan maintenance plan-1000 mg every 6 months to be done at [facility]. Next Rituxan dose will be 07/2025-which is 6 months from most recent Rituxan done on 01/12/2025. Please inform [facility] of change in Rituxan plans. Also inform patient that we are starting every 6 months maintenance single dose. She was scheduled for another Rituxan on 01/26/2025. Please cancel that appointment. Thank you. documented in this encounter Plan of Treatment Upcoming Encounters Date Type Department Care Team (Late st Contact Info) Description 03/16/2025 1:00 PM EDT Office Visit [facility]P Pul[facility] [address] [phone] Grover Ware MD [address] [address] 07/04/2025 11:15 AM EST Office Visit [facility] [address] [place] [address] Haley Suresh MD [address] [place] [address] 07/15/2025 9:30 AM EST Appointment [place] [address] documented as of this encounter Goals Goal Patient Goal Type Associated Problems Recent Progress Patient-Stated? Author Blood Pressure < 140/90 Blood Pressure 143/89( 025 2:06 PM EDT) No Unique Adan RMA Eat better, exercise, reach an ideal body weight General No Kun Gaitan RMA documented as of this encounter Visit Diagnoses Not on filedocumented in this encounter Care Teams Streetcar Repairer Helper Relationship Specialty Start Date End Date Bean Herbert MD [address] [place], [place] [address] [address] [place] [address] PCP - General 04/12/09 Haley Suresh MD [address] [place] [address] Internal Medicine-Rheumatology 11/04/22 documented as of this encounter
--- OUTSIDE RECORDS SUMMARY | 2025-02-24 11:23 | XMS_ITS | Encounter Summary ---
Author Organization [place] [address] Care Team Providers Care Shoe Maker Name Role Phone Bean Herbert MD Primary Care Provider [phone] Haley Suresh MD Unavailable [phone] Brianda Turcios RN Unavailable Unavailabl e Encounter Details Date Type Department Care Team (Late st Contact Info) Description 12/20/2024 Results Follow-Up [facility] [address] [place] [address] Bean Herbert MD [address] [address] VITAMIN D 25 HYDROXY, THYROID STIMULATING HORMONE, LIPID PANEL REFLEX, Additional followed-up results: 4 Social History Tobacco Use Types Packs/Day Years [...] 12:36 PM CRISSY Adeola Galloway VI * Is the person blind or [...] Author No 07/29/2024 12:36 PM CRISSY Adeola Galolway VI documented as of this encounter Mental [...] two times a week. 24 Capsule 1 12/28/2024 documented in this encounter Plan of Treatment Upcoming Encounters Date Type Department Care Team (Late st Contact Info) Description 03/16/2025 1:00 PM EDT Office Visit [facility] Pul[facility] [address] [address] Grover Ware MD [address] [address] 07/04/2025 11:15 AM EST Office Visit [facility] [address] [place] [address] Haley Suresh MD [address] [place] [address] 07/15/2025 9:30 AM EST Appointment [place] [address] documented as of this encounter Goals Goal Patient Goal Type Associated Problems Recent Progress Patient-Stated? Author Blood Pressure < 140/90 Blood Pressure 143/89( 025 2:06 PM EDT) No Unique Adan, RMA Eat better, exercise, reach an ideal body weight General No Kun Gaitan RMA documented as of this encounter Visit Diagnoses Diagnosis Vitamin D deficiency Unspecified vitamin D deficiency documented in this encounter Care Teams Shoe Maker Relationship Specialty Start Date End Date Bean Herbert MD [address] [place] [phone] PCP - General 04/12/09 Haley Suresh MD [address] [place] [address] Internal Medicine-Rheumatology 11/04/22 Brianda Turcios, RN Registered Nurse Infusion Therapy 01/12/25 01/12/25 documented as of this encounter
--- OUTSIDE RECORDS SUMMARY | 2025-02-24 11:23 | XMS_ITS | Encounter Summary ---
Author Organization Health Address [address] [place] [address] Care Team Providers Care Metal Plater Name Role Phone Bean Herbert MD Primary Care Provider [phone] Source Comments This information has been disclosed [...] release of HIV test results or diagnoses. [id number] Health Encounter Details Date Type Department Care Team (Late st Contact Info) Description 06/04/2016 Orders Only [facility] [address] [place] [address] Bean Herbert MD [address] [facility] [address] [place] [address] Visit for screening mammogram (Primary Dx) Social History Tobacco Use Types [...] on file documented as of this encounter Results * Mammography Screening Bilateral incl CAD (06/26/2016 2:31 PM EST) Anatomical Region Laterality Modality Breast Bilateral Mammography 06/26/2016 2:13 PM EST Impressions 06/30/2016 3:11 PM EST IMPRESSION: No mammographic evidence of malignancy. Recommendations: Annual screening mammography and annual clinical breast exam. ACR BI-RADS Category: 2 (benign findings) Note: Circular markers, when present, indicate skin lesions. I have personally reviewed the images and I agree with this report. Report Verified by: ALEKSEY JACINTO M.D. at 06/30/2016 3:11 PM EST Narrative 06/30/2016 3:11 PM EST Digital screening mammogram with tomosynthesis and CAD 06/26/2016 2:13 PM EST. Indication: Screening mammography. Comparison: [id number] Technique: Digital mammographic and tomosynthesis images were obtained in MLO and CC projections. The mammographic images were double read with R2 CAD ImageChecker. Breast Density: The breasts are heterogenously dense, which may obscure small masses. Findings: The 2 biopsy tissue markers in the right upper breast are again noted. There is a unchanged tissue marker in the left upper outer breast. There is interval surgical excision in the left upper outer posterior breast. The biopsy tissue marker in this area is no longer visualized. There are no suspicious masses, microcalcifications or architectural distortions. us Bean Herbert MD IMG MAMMOGRAPHY ORDERABLES F inal Result documented in this encounter Visit Diagnoses Diagnosis Visit for screening mammogram- Primary Visit for screening mammogram documented in this encounter Care Teams Metal Plater Relationship Specialty Start Date End Date Bean Herbert MD [address] [address] PCP - General 08/27/06 documented as of this encounter
--- OUTSIDE RECORDS SUMMARY | 2025-02-24 11:23 | XMS_ITS | Encounter Summary ---
Author Organization [place] [address] Care Team Providers Care Engineering Geologist Name Role Phone Bean Herbert MD Primary Care Provider [phone] Haley Suresh MD Unavailable [phone] Reason for Visit * Reason Onset Date Comments Results 12/30/2024 Pt seeking resul ts Encounter Details Date Type Department Care Team (Late st Contact Info) Description 12/30/2024 Telephone [facility] [address] [place] [address] Bean Herbert MD [address] [facility] [address] [place] [address] Results (Pt seeking results) Social History Tobacco Use Types Packs/Day Years [...] 07/29/2024 12:36 PM Adeola Kwongn, VI * Does this person have difficulty [...] encounter Miscellaneous Notes * Telephone Encounter - Annie Og RN - 12/30/2024 4:42 PM EDT Pt calling for CT scan results. Advised they've not been reviewed by the Dr. Pt asking if she can be called before 10 on the house phone or her daughter's phone [phone]. * Telephone Encounter - Josselyn Haley RMA - 12/30/2024 4:26 PM EDT Called LM on VM * Telephone Encounter - Josefa Oswald MD - 12/30/2024 2:18 PM EDT Very elevated lipids. Mildly elevated FBS 106- Sl low vit D Follow up as per Dr. Herbert * Telephone Encounter - Rob Tucker - 12/30/2024 1:48 PM EDT Select the most appropriate reason for this telephone message: Test Result(s) Purpose of call: Patient seeking results Type of test: Lab Date of test: 12/30 Who ordered the test: elizabeth Where was test performed: [facility] ([place]) Return Method of Communication: Phone Call Additional Information: please advise pt. And if she does not answer call daughter Sultana [phone] documented in this encounter Plan of Treatment Upcoming Encounters Date Type Department Care Team (Late st Contact Info) Description 03/16/2025 1:00 PM EDT Office Visit [facility] Pul[facility] [address] [address] Grover Ware MD [address] [address] 07/04/2025 11:15 AM EST Office Visit [facility] [address] [place] [address] Haley Suresh MD [address] [place] [address] 07/15/2025 9:30 AM EST Appointment [place] [address] documented as of this encounter Goals Goal Patient Goal Type Associated Problems Recent Progress Patient-Stated? Author Blood Pressure < 140/90 Blood Pressure 143/89( 025 2:06 PM EDT) No Unique Adan RMA Eat better, exercise, reach an ideal body weight General No Kun Gaitan RMA documented as of this encounter Visit Diagnoses Not on filedocumented in this encounter Care Teams Engineering Geologist Relationship Specialty Start Date End Date Bean Herbert MD [address] [place] [phone] PCP - General 04/12/09 Haley Suresh MD [address] [place] [address] Internal Medicine-Rheumatology 11/04/22 documented as of this encounter
--- OUTSIDE RECORDS SUMMARY | 2025-02-24 11:23 | XMS_ITS | Encounter Summary ---
Author Organization [place] [address] Care Team Providers Care Automated Equipment Engineer Technician Name Role Phone Bean Herbert MD Primary Care Provider [phone] Haley Suresh MD Unavailable [phone] Reason for Visit * Reason Onset Date Comments Medication Refill 02/24/2025 Encounter Details Date Type Department Care Team (Late st Contact Info) Description 02/24/2025 Refill [facility] [address] [place] [address] Bean Herbert MD [address] [address] Medication Refill Social History Tobacco [...] Refills Last Filled Start Date End Date ibuprofen (ADVIL;MOTRIN) 800 mg Oral TabletIndications:De generation of intervertebral disc of lumbar region, unspecified whether pain present Take 1 Tablet by mouth every 8 hours as needed for Pain. 30 Tablet 02/24/2025 documented in this encounter Plan of Treatment Upcoming Encounters Date Type Department Care Team (Late st Contact Info) Description 03/16/2025 1:00 PM EDT Office Visit [facility] Pulmonology [facility] [address] [address] Grover Ware MD [address] [address] 07/04/2025 11:15 AM EST Office Visit [facility] [address] [place] [address] Haley Suresh MD [address] [place] [address] 07/15/2025 9:30 AM EST Appointment [facility] [address] documented as of this encounter Goals Goal Patient Goal Type Associated Problems Recent Progress Patient-Stated? Author Blood Pressure < 140/90 Blood Pressure 143/89( 025 2:06 PM EDT) No Unique Adan RMA Eat better, exercise, reach an ideal body weight General No Kun Gaitan RMA documented as of this encounter Visit Diagnoses Diagnosis Degeneration of intervertebral disc of lumbar region, unspecified whether pain present documented in this encounter Discontinued Medications Medication Sig Discontinue Reason Start Date End Da te ibuprofen (ADVIL;MOTRIN) 800 mg Oral TabletIndications:Degenera tion of intervertebral disc of lumbar region, unspecified whether pain present Take 1 Tablet by mouth every 8 hours as needed for Pain. Reorder 01/26/2025 02/24/2025 documented as of this encounter Care Teams Automated Equipment Engineer Technician Relationship Specialty Start Date End Date Bean Herbert MD [address] [facility] [address] [place] [phone] PCP - General 04/12/09 Haley Suresh MD [address] [place] [address] Internal Medicine-Rheumatology 11/04/22 documented as of this encounter
--- OUTSIDE RECORDS SUMMARY | 2025-02-24 11:24 | XMS_ITS | Clinical Summary ---
Author Organization [facility] Address [facility] [place] [address] Care Team Providers Care Pegger Name Role Phone Bean Herbert MD Primary Care Provider [phone] Source Comments This information has been disclosed to you from confidential records protectedfrom disclosure by state law. You shall make no further disclosure of thisinformation without the specific, written, and informed release of theindividual to whom it pertains, or as otherwise permitted by law. A generalauthorization for the release of medical or other information is not sufficientfor the purposes of therelease of HIV test results or diagnoses. [id number] Allergies Active Allergy Reactions Criticality Noted Date Comments Duloxetine 09/15/2014 h/a Sulfa (Sulfonamide Antibiotics) 08/31 Medications IPRATROPIUM/ALB UTEROL SULFATE (COMBIVENT INHL) Inhale into the lungs. 12/12/2008 Active HYDROcodone-juani taminophen (VICODIN ES) 7.5-750 mg per tablet Take 1 tablet by mouth every 6 hours as needed. Active amLODIPine (NORVASC) 5 MG tablet 5 mg. 09/13/2013 Active losartan (COZAAR) 100 MG tablet 100 mg. 09/13/2013 Active diazepam (VALIUM) 10 MG tablet Take 1 tablet by mouth every 6 hours as needed 08/02/2013 Active predniSONE (DELTASONE) 5 MG tablet 09/08/2014 Active ergocalciferol (ERGOCALCIFEROL ) 50,000 unit capsule Take 1 capsule (50,000 Units total) by mouth once a week. 12 capsule 1 10/26/2015 Active venlafaxine (EFFEXOR-XR) 37.5 MG 24 hr capsule Take 1 capsule (37.5 mg total) by mouth daily. 30 capsule 2 12/29/2015 Active leflunomide (ARAVA) 20 MG tablet Take 1 tablet (20 mg total) by mouth daily. 30 tablet 2 12/29/2015 Active omeprazole (PRILOSEC) 20 MG capsule Take 1 capsule (20 mg total) by mouth daily. 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 Hematuria of undiagnosed cause 05/13/2012 Depressive disorder, not elsewhere classified Acquired absence of both cervix and uterus 01/09 Encounter for routine gynecological examination 09/26/2008 Overview (03/02/2015): ICD-10 Transition Resolved Problems Problem Noted Date Diagnosed Date Resolved Date Chest pain 11/01/2009 05/13/2012 Overview (03/02/2015): ICD-10 Transition Follow-up examination, follo wing other surgery 01/27/2009 05/13/2012 Constipation 01/27/2009 05/13/2012 Overview (03/02/2015): ICD-10 Transition Leiomyoma of uterus 09/26/2008 05/13/20 12 Overview (03/02/2015): ICD-10 Transition Family History Medical History Relation Comments Lung Cancer Father Stomach Cancer Father Lung Cancer Maternal Grandmother Uterine Cancer Maternal Grandmother Throat Cancer Maternal Uncle Breast Cancer Mother diagnosed in her 60's Diabetes type I Mother Hypertension Mother Stroke Mother Uterine Cancer Mother Uterine Cancer Paternal Grandmother Uterine Cancer Sister 1 diagnosed in her mid 30's Uterine Cancer Sister 2 diagnosed in her 40's Relation Status Comments Brother (Age 35) drug overdose Father Maternal Grandfather in his 30's Maternal Grandmother Maternal Uncle Mother Alive Paternal Grandfather Paternal Grandmother in her 30's Sister 1 Alive Sister 2 Alive Sister 3 Alive Sister 4 Alive Social History Tobacco Use Types Packs/Day Years Used Date Smoking Tobacco: Never Smokeless Tobacco: Never Comments:09-26-2008 Alcohol Use Standard Drinks/Week Comments No 0 (1 standard drink = 0.6 oz pur e alcohol) 09-26-2008 PHQ-2 Answer Date Recorded PHQ-2 Total Score 0 10/06/2020 Comments No Sex and Gender Information Value Date Recorded Sex Assigned at Not on file Legal Sex Female 2:16 PM EST Gender Identity Not on file Sexual Orientation Not on file Last Filed Vital Signs Vital Sign Reading Time Taken Comments Blood Pressure 106/72 10/06/2020 11:15 AM EDT Pulse 97 10/06/2020 11:15 AM EDT Temperature 36.7 C (98 F) 10/06/2020 11:15 AM EDT Respiratory Rate 16 10/06/2020 11:15 AM EDT Oxygen Saturation 100% 10/06/2020 11:15 AM EDT Inhaled Oxygen Concentration 100% 10/06/2020 1 1:15 AM EDT Weight 90.7 kg (200 lb) 10/06/2020 11:15 AM EDT Height 157.5 cm (5' 2 ) 10/06/2020 11:15 AM EDT Body Mass Index 36.58 10/06/2020 11:15 AM EDT Plan of Treatment Health Maintenance Due Date Last Done Comments Abnormal Colonoscopy Follow Up 1965 Depression Monitoring (PHQ-9) 1965 Alcohol Misuse Screening 10/02/1981 HIV Screening 10/02/1981 Cologuard (FIT-DNA) 10/02/2008 Colonoscopy 10/02/2008 Colorectal Cancer Screening (MyChart) 10/02/2008 Stool Testing (gFOBT) 10/02/2008 Immunization: Pneumococcal ( 1 of 1 - PCV) 10/02/2013 Immunization: Zoster (1 of 2) 10/02/2013 Immunization: DTaP/Tdap/Td ( 2 - Td or Tdap) 09/14/2023 09/13/2013 Immunization: COVID-19 ( season) 2025 Immunization: Influenza (MyC zhang) (#1) 2025 Mammogram (MyChart) 09/16/2026 09/16/2024, 10/06/2020, 08/24/2018, Additional history exists Immunization: RSV (Adult) (1 - 1-dose 75+ series) 10/02/2038 Hepatitis C Screening (MyChart) Completed 6 Procedures Procedure Name Priority Date/Time Associated Diagnosis Comments MAMMO DIAGNOSTIC DIGITAL BILATERAL INCL CAD Routine 09/16/2024 9:59 AM EDT Pain of right breast HEPATITIS C ANTIBODY Routine 10/25/2015 4:30 PM EDT from Last 3 Months or Most Recently Relevant to Health Maintenance Results * Mammo Diagnostic Bilateral incl CAD (09/16/2024 9:59 AM EDT) Anatomical Region Laterality Modality Breast Bilateral Mammography 09/16/2024 9:36 AM EDT Addenda Addendum by Fady Mccormack MD on 09/16/2024 1:21 PM EDT ADDENDUM #1 Indication: 58-year-old female presenting with a palpable lump involving the right breast. Prior excisional biopsy of the left breast demonstrating benign results including papillomatosis. Report Verified by: Fady Mccormack MD at 09/16/2024 1:19 PM EDT ORIGINAL REPORT Exam: Digital diagnostic bilateral breast mammogram with tomosynthesis and CAD and bilateral breast ultrasound: 09/16/2024 11:02 AM EDT. Indication: 4-year-old female presenting with a palpable lump involving the right breast. Prior excisional biopsy of the left breast demonstrating benign results including papillomatosis. Comparison: Multiple prior mammograms. Breast Density: The breasts are heterogeneously dense, which may obscure small masses. Findings: In the outer central right breast is increased oval circumscribed mass. In the lumpectomy bed of the upper outer left breast is a new oval partially circumscribed partially obscured mass with dependent more coarse calcifications. Targeted ultrasound at the area of palpable concern demonstrates no suspicious sonographic findings (10:00 position 11 cm from nipple). Targeted ultrasound of the right breast 10:00 position 5 cm from nipple demonstrates a abutting simple cysts corresponding to the increased right breast mass described above. Targeted ultrasound of the left breast 2:00 position 10 cm from the nipple demonstrates a benign simple cyst measuring up to 1.1 cm. IMPRESSION: No mammographic or targeted sonographic evidence of malignancy. Recommendation: 1. Annual screening mammography. 2. Patient should return to clinic with any new or increasing palpable lumps or persistent focal areas of pain. These findings and recommendations were discussed with the patient in person and given to the patient in written form prior to leaving our department. BI-RADS 2 (benign findings) Approved by Nelson Hughes MD on 09/16/2024 11:11 AM EDT I have personally reviewed the images and I agree with this report. Report Verified by: Fady Mccormack MD at 09/16/2024 1:06 PM EDT Impressions 09/16/2024 1:06 PM EDT IMPRESSION: No mammographic or targeted sonographic evidence of malignancy. Recommendation: 1. Annual screening mammography. 2. Patient should return to clinic with any new or increasing palpable lumps or persistent focal areas of pain. These findings and recommendations were discussed with the patient in person and given to the patient in written form prior to leaving our department. BI-RADS 2 (benign findings) Approved by Nelson Hguhes MD on 09/16/2024 11:11 AM EDT I have personally reviewed the images and I agree with this report. Report Verified by: Fady Mccormack MD at 09/16/2024 1:06 PM EDT Narrative 09/16/2024 1:06 PM EDT Exam: Digital diagnostic bilateral breast mammogram with tomosynthesis and CAD and bilateral breast ultrasound: 09/16/2024 11:02 AM EDT. Indication: 4-year-old female presenting with a palpable lump involving the right breast. Prior excisional biopsy of the left breast demonstrating benign results including papillomatosis. Comparison: Multiple prior mammograms. Breast Density: The breasts are heterogeneously dense, which may obscure small masses. Findings: In the outer central right breast is increased oval circumscribed mass. In the lumpectomy bed of the upper outer left breast is a new oval partially circumscribed partially obscured mass with dependent more coarse calcifications. Targeted ultrasound at the area of palpable concern demonstrates no suspicious sonographic findings (10:00 position 11 cm from nipple). Targeted ultrasound of the right breast 10:00 position 5 cm from nipple demonstrates a abutting simple cysts corresponding to the increased right breast mass described above. Targeted ultrasound of the left breast 2:00 position 10 cm from the nipple demonstrates a benign simple cyst measuring up to 1.1 cm. Procedure Note Fady Mccormack MD - 09/16/2024 Exam: Digital diagnostic bilateral breast mammogram with tomosynthesis andCAD and bilateral breast ultrasound: 09/16/2024 11:02 AM EDT. Indication: 4-year-old female presenting with a palpable lump involvingthe right breast. Prior excisional biopsy of the left breast demonstratingbenign results including papillomatosis. Comparison: Multiple prior mammograms. Breast Density: The breasts are heterogeneously dense, which may obscuresmall masses. Findings: In the outer central right breast is increased oval circumscribed mass. Inthe lumpectomy bed of the upper outer left breast is a new oval partiallycircumscribed partially obscured mass with dependent more coarsecalcifications. Targeted ultrasound at the area of palpable concern demonstrates nosuspicious sonographic findings (10:00 position 11 cm from nipple). Targeted ultrasound of the right breast 10:00 position 5 cm from nippledemonstrates a abutting simple cysts corresponding to the increased rightbreast mass described above. Targeted ultrasound of the left breast 2:00 position 10 cm from the nippledemonstrates a benign simple cyst measuring up to 1.1 cm. IMPRESSION: No mammographic or targeted sonographic evidence of malignancy. Recommendation: 1. Annual screening mammography. 2. Patient should return to clinic with any new or increasing palpablelumps or persistent focal areas of pain. These findings and recommendations were discussed with the patient inperson and given to the patient in written form prior to leaving ourdepartment. BI-RADS 2 (benign findings) Approved by Nelson Hughes MD on 09/16/2024 11:11 AM EDT I have personally reviewed the images and I agree with this report. Report Verified by: Fady Mccormack MD at 09/16/2024 1:06 PM EDT Bean Herbert MD IM MAMMOGRAPHY ORDERABLES E dited Result - Final * Hepatitis C Antibody (10/25/2015 4:30 PM EDT) HCV Ab Nonreactive Nonreactive 10/25/2015 8:11 PM EDT [facility] Comment:Health Department no tified in accordance with reportable infectious disease guidelines. HCVAB Number 0.29 0.00 - 0.79 S/CO 10/25/2015 8:11 PM EDT [facility] Serum specimen (specimen) 10/25/2015 4:30 PM EDT 10/25/2015 7:21 PM EDT Narrative [facility] - 10/25/2015 8:11 PM EDT Antibodies to HCV not detected; does not exclude the possibility of exposure to HCV. us Leticia Brady MD LAB BLOOD ORDERABLES Final Result [facility] [address] [place] [address], [facility] from Last 3 Months or Most Recently Relevant to Health Maintenance Insurance [employer] MEDICARE Care Teams Pegger Relationship Specialty Start Date End Date Bean Herbert MD [address] [place] [address] [address] [place] [phone] PCP - General 08/27/06
--- OUTSIDE RECORDS SUMMARY | 2025-02-24 11:24 | XMS_ITS | Clinical Summary ---
Author Organization [facility] Address [address] [place] [address] Care Team Providers Care Foreign Language Interpreter Name Role Phone Bean Herbert M.D. Primary Care Provider Source Comments [facility] is fully rolled out with thefollowing exceptions:General Clinical Research [facility] Social History Tobacco Use Types Packs/Day Years Used Date Smoking Tobacco: Never Assessed Comments Unknown Sex and Gender Information Value Date Recorded Sex Assigned at Not on file Legal Sex Female 1:30 PM EDT Gender Identity Not on file Sexual Orientation Not on file Plan of Treatment Health Maintenance Due Date Last Done Comments MMR IMMUNIZATION (1 of 1 - S tandard series) 10/02/1964 DTAP/Tdap/Td IMMUNIZATION (1 - Tdap) 10/02/1970 VARICELLA IMMUNIZATION (1 of 2 - 13+ 2-dose series) 10/02/1976 AMB SEASONAL FLU VACCINE (#1) 01/31/2025 COVID-19 Vaccine ( - 2023-2 5 season) 2025 Respiratory Syncytial Virus (RSV) >60yo or (1 - 1-dose 75+ series) 10/02/2038 HEPATITIS B IMMUNIZATION Aged Out No longer eligible based on patient's age to complete this topic HIB IMMUNIZATION Aged Out No longer e ligible based on patient's age to complete this topic HPV IMMUNIZATION Aged Out No longer e ligible based on patient's age to complete this topic IPV IMMUNIZATION Aged Out No longer e ligible based on patient's age to complete this topic MCV4 IMMUNIZATION Aged Out No longer eligible based on patient's age to complete this topic MENINGOCOCCAL B VACCINE Aged Out No l onger eligible based on patient's age to complete this topic Respiratory Syncytial Virus (RSV) <20mo Aged Out No longer eligible b ased on patient's age to complete this topic Insurance MEDICARE Member Subscriber Plan / Payer (Ef fective for All Dates) Name:Corazon Aggarwalne Member ID:[id number] Relation to Subscriber:Self Name:Corazon Aggarwal Subscriber ID:[id number] Payer ID:Not on file Group ID:Not on file Type:Medicare Address: [facility] [id number] [facility] Care Teams Foreign Language Interpreter Relationship Specialty Start Date End Date Bean Herbert M.D. [facility] Care [address] [place] [address] PCP - General External Family Practice 10/29/13
--- OUTSIDE RECORDS SUMMARY | 2025-02-24 11:24 | XMS_ITS | Encounter Summary ---
Author Organization [facility] Address [address] [place] [address] Care Team Providers Care Department Traffic Freight Router Name Role Phone Bean Herbert MD Primary Care Provider [phone] Source Comments This information has been disclosed [...] release of HIV test results or diagnoses. [id number] Health Encounter Details Date Type Department Care Team (Late st Contact Info) Description 07/30/[address] [facility] [address] [place] [phone] Lindsey Billingsley MD [address] [place] [phone] Encounter for other screening for malignant neoplasm of breast (Primary Dx) Social History Tobacco Use Types [...] Results * Mammography Screening Bilateral incl CAD (08/22/2017 3:28 PM EDT) Anatomical Region Laterality Modality Breast Bilateral Mammography 08/22/2017 2:52 PM EDT Impressions 08/25/2017 3:25 PM EDT IMPRESSION: No mammographic evidence of malignancy. Recommendations: Annual screening mammography and annual clinical breast exam. ACR BI-RADS Category: 2 (benign findings) Report Verified by: KIKI GUILLORY MD at 08/25/2017 3:25 PM EDT Narrative 08/25/2017 3:25 PM EDT Digital screening mammogram with tomosynthesis and CAD 08/22/2017 2:52 PM EDT. Indication: Screening mammography. History of left breast papillomas status post excision also with history of benign right needle biopsies. Family history of breast cancer in mother. At the time of screening, the patient reports the sensation that her right breast was leaking, although no fluid was seen or wetness was felt. Comparison: 2016, 2014, 2013. Technique: Digital mammographic and tomosynthesis images were obtained in MLO and CC projections. The mammographic images were double read with R2 CAD ImageChecker. Breast Density: The breasts are heterogenously dense, which may obscure small masses. Findings: There are 2 tissue markers in the right breast and a single tissue marker in the upper outer left breast. Subtle architectural distortion in the upper outer posterior left breast is consistent with the site of prior excision. There are no suspicious masses, microcalcifications or unexplained architectural distortions. There is no significant interval change. Lindsey Billingsley MD IMG MAMMOGRAPHY ORDERAB LES Final Result documented in this encounter Visit Diagnoses Diagnosis Encounter for other screening for malignant neoplasm of breast- Primary Encounter for other screening for malignant neoplasm of breast documented in this encounter Care Teams Department Traffic Freight Router Relationship Specialty Start Date End Date Bean Herbert MD [address] [place] [phone] PCP - General 08/27/06 documented as of this encounter
--- OUTSIDE RECORDS SUMMARY | 2025-02-24 11:24 | XMS_ITS | Encounter Summary ---
Author Organization [facility] Address [address] [place] [address] Care Team Providers Care Travel Counselor Automobile Club Name Role Phone Bean Herbert MD Primary Care Provider [phone] Source Comments This information has been disclosed [...] release of HIV test results or diagnoses. [id number] Reason for Referral * Diagnostic Imaging (Routine) - Closed Specialty Diagnoses / Procedures Referred By Contac t Referred To Contact Diagnoses Screening breast examination Procedures Mammography Screening Bilateral incl CAD [facility] at [address] [phone] Phone: tel: Lindsey Billingsley MD Phone: tel: fax: Referral ID Status Reason Start Date Expiration Date Visits Re quested Visits Authorized [id number] Closed 07/24/2018 01/20/2019 1 1 Encounter Details Date Type Department Care Team (Late st Contact Info) Description 07/24/2018 Orders Only [facility] at [address] [phone] Lindsey Billingsley MD [address] [place] [address]. [place] [phone] Screening breast examination (Primary Dx) Social History [...] Results * Mammography Screening Bilateral incl CAD (08/24/2018 2:29 PM EDT) Anatomical Region Laterality Modality Breast Bilateral Mammography 08/24/2018 1:48 PM EDT Impressions 08/25/2018 5:07 PM EDT IMPRESSION: No mammographic evidence of malignancy in either breast. Recommendations: 1. Screening mammography is recommended in one year. 2. Clinical follow-up is recommended for the patient's left breast pain. ACR BI-RADS Category: 2 (benign findings) I have personally reviewed the images and I agree with this report. Report Verified by: Toño Buchanan MD at 08/25/2018 5:07 PM EDT Narrative 08/25/2018 5:07 PM EDT Exam: Digital bilateral breast screening mammogram with tomosynthesis and CAD on 08/24/2018 1:48 PM EDT. Indication: Screening mammography. History of left breast papillomas status post excision, also with history of benign right needle biopsies. Family history of breast cancer in her mother. The patient notes pain in the far posterior left breast. Comparison: 2017, 2016, 2014, 2013 Technique: Digital mammographic and tomosynthesis images were obtained in MLO and CC projections. The mammographic images were double read with R2 CAD ImageChecker. Breast Density: The breast tissue is heterogenously dense, which may obscure small masses. Findings: Multiple circumscribed masses are unchanged, compatible with benign etiology. There is subtle architectural distortion in the upper outer left breast with an adjacent tissue marker and overlying linear scar marker corresponding to the location of prior excision, unchanged. 2 tissue markers are again noted in the right breast. Scattered benign-appearing calcifications both breasts are unchanged. There has been no worrisome interval change us Provider Not In System IMG MAMMOGRAPHY ORDERABLE S Final Result documented in this encounter Visit Diagnoses Diagnosis Screening breast examination- Primary Other screening breast examination Screening breast examination Other screening breast examination documented in this encounter Care Teams Travel Counselor Automobile Club Relationship Specialty Start Date End Date Bean Herbert MD [address] [phone] PCP - General 08/27/06 documented as of this encounter
== END 2025-02-24 23:59 | disposition home or self-care (01) ==
LOC: LAB 11:12
PROVIDERS: Visit Provider Internal Medicine Pulmonary Disease
DX: R06.02 Shortness of breath (principal); R05.8 Other specified cough; R07.9 Chest pain, unspecified
CPT/HCPCS: 71046; 87070; 87205

== ENCOUNTER 2025-03-15 14:34 | Outpatient (CLI) | payer MEDICARE, MEDICAID, SELFPAY ==
--- NOTE | 2025-03-15 14:46 | XR_ITS ---
FINAL REPORT CLINICAL HISTORY: SOB COMPARISON: 02/24/2025 FINDINGS: PA and lateral views of the chest were obtained. The cardiac and mediastinal silhouettes are within normal limits. The lungs are clear. There is no pleural effusion or pneumothorax. No acute osseous abnormality is identified. IMPRESSION: No radiographic evidence of acute cardiac or pulmonary disease. Reviewed, Interpreted and Dictated by Juanis Haines MD Transcribed by Donna Juan Authenticated and [facility]
== END 2025-03-15 23:59 | disposition home or self-care (01) ==
LOC: LAB 14:35
PROVIDERS: PCP Family Medicine; Visit Provider Internal Medicine Pulmonary Disease
DX: R05.3 Chronic cough (principal); R06.02 Shortness of breath
CPT/HCPCS: 71046; 87070; 87205

== ENCOUNTER 2025-03-29 07:23 | Outpatient (CLI) | payer MEDICARE, MEDICAID, SELFPAY ==
--- OUTSIDE RECORDS SUMMARY | 2025-02-02 10:33 | XMS_ITS | Encounter Summary ---
Author Organization [place] [address] Care Team Providers Care Family Specialist Name Role Phone Bean Herbert MD Primary Care Provider [phone] Haley Suresh MD Unavailable [phone] Encounter Details Date Type Department Care Team (Latest Contact Info) Description 02/02/2025 10:33 AM EDT - 02/02/2025 11:59 PM EDT Hospital Encounter [facility] [address] [place], [place] [id number] Chronic cough Discharge Disposition: Home or Self [...] Shortness of Breath. 1080 mL 10 5 amLODIPine (NORVASC) 5 mg Oral TabletIndications:E ssential hypertension Take 1 Tablet by mouth daily. 90 Tablet 3 5 aspirin 81 mg tabletIndications:H TN (hypertension) Take 1 Tab by mouth daily. 90 Tab 3 1 diazePAM (VALIUM) 10 mg Oral TabletIndications:D epression with anxiety Take 1 Tablet by mouth 3 times daily as needed. 90 Tablet 2 5 diphenhydrAMINE (BENADRYL) 50 mg Oral Capsule Take 1 Capsule by mouth daily. 10 Capsule 1 5 ergocalciferol (DRISDOL) 1,250 mcg (50,000 unit) Oral CapsuleIndications: Vitamin D deficiency Take 1 Capsule by mouth once a week. 12 Capsule 3 5 hydrOXYzine (ATARAX) 25 mg Oral TabletIndications:D ysesthesia of scalp Take 1 Tablet by mouth nightly as needed for Itching. Do not drive or operate heavy machinery after taking 90 Tablet 11 5 ipratropium-albuter ol (COMBIVENT RESPIMAT) 20-100 mcg/actuation Inhl MistIndications:Mil d intermittent asthma without complication Inhale 1 Puff into the lungs every 6 hours as needed. for wheezing 12 g 5 LEVOthyroxine (SYNTHROID) 25 mcg Oral TabletIndications:H ypothyroidism (acquired) Take 1 Tablet by mouth daily. 90 Tablet 3 5 linaCLOtide (LINZESS) 72 mcg Oral CapsuleIndications: [...] by mouth nightly. 90 Tablet 3 5 budesonide-formoter oL (SYMBICORT) 160-4.5 mcg/actuation Inhl HFA Aerosol InhalerIndications: Mild intermittent asthma without complication,Acute bronchitis due to respiratory syncytial virus Inhale 2 Puffs into the lungs 2 times daily. 10.2 Each 5 03/21/20 25 HYDROcodone-acetami nophen (NORCO) 10-325 mg Oral TabletIndications:F ibromyalgia,DDD (degenerative disc disease), lumbar,Degenerative disc disease, lumbar,Primary osteoarthritis of both knees,Osteoarthriti s of both knees, unspecified osteoarthritis type,Rheumatoid arthritis involving knee (HCC) Take 1 Tablet by mouth every 8 hours as needed for Chronic Pain (G89.29). 90 Tablet 5 02/25/20 25 ibuprofen (ADVIL;MOTRIN) 800 mg Oral TabletIndications:D egeneration of intervertebral disc of lumbar region, unspecified whether pain present Take 1 Tablet by mouth every 8 hours as needed for Pain. 30 Tablet 5 02/25/20 25 ketoconazole (NIZORAL) 2 % Top ShampooIndications: Rash Apply topically Three times weekly. 120 mL 1 5 03/21/20 25 documented as of this encounter Discharge Disposition Disposition Code Departure Means Destination Home or Self Care documented in this encounter Plan of Treatment Upcoming Encounters Date Type Department Care Team (Late st Contact Info) Description 04/07/2025 1:15 PM EST Office Visit [facility] [place] [address] [place] [address] Kayla Cali MD [address] [facility] [address] [place] [address] 07/04/2025 11:15 AM EST Office Visit [facility] [address] [place] [address] Haley Suresh MD [address] [place] [address] 07/15/2025 9:30 AM EST Appointment [facility] [address] documented as of this encounter Goals Goal Patient Goal Type Associated Problems Recent Progress Patient-Stated? Author Blood Pressure < 140/90 Blood Pressure 143/89( 025 2:06 PM EDT) No Antionette, Unique L, RMA Eat better, exercise, reach an ideal body weight General No Schuchter, Malynda, RMA documented as of this encounter Procedures Procedure Name Priority Date/Time Associated Diagnosis Comments XR CHEST PA AND LATERAL Routine 02/02/2025 10:49 AM EDT Chronic cough documented in this encounter Results * XR CHEST PA AND LATERAL (02/02/2025 10:49 AM EDT) Anatomical Region Laterality Modality Chest Radiographic Ana Lilia ging 02/02/2025 10:4 9 AM EDT Impressions 02/02/2025 11:48 AM EDT No acute finding. - Note: Radiology results need to be interpreted within a comprehensive clinical context. If you have questions about the radiology report, please contact the office of the ordering clinician. Narrative 02/02/2025 11:48 AM EDT PA AND LATERAL CHEST X-RAY, 02/02/2025 10:49 AM CLINICAL HISTORY: R05.3-Chronic [id number] COMPARISON: 08/26/2024 PROCEDURE COMMENTS: Frontal and lateral views of the chest. FINDINGS: Heart and mediastinal contours within normal limits for technique. No active failure, pneumonia, or visible effusion. No visible pneumothorax. Procedure Note Bartolo Milan MD - 02/02/2025 PA AND LATERAL CHEST X-RAY, 02/02/2025 10:49 AM CLINICAL HISTORY: R05.3-Chronic [id number] COMPARISON: 08/26/2024 PROCEDURE COMMENTS: Frontal and lateral views of the chest. FINDINGS: Heart and mediastinal contours within normal limits for technique. Noactive failure, pneumonia, or visible effusion. No visible pneumothorax. IMPRESSION: No acute finding. - Note: Radiology results need to be interpreted within a comprehensiveclinical context. If you have questions about the radiology report, please contactthe office of the ordering clinician. Bean Herbert MD IMG DIAGNOSTIC IMAGING ORDER GARCIA Final Result documented in this encounter Visit Diagnoses Diagnosis Chronic cough Cough documented in this encounter Care Teams Family Specialist Relationship Specialty Start Date End Date Bean Herbert MD [address] [place] [phone] PCP - General 04/12/09 Haley Suresh MD [address] [place] [address] Internal Medicine-Rheumatology 11/04/22 documented as of this encounter
--- OUTSIDE RECORDS SUMMARY | 2025-03-29 07:27 | XMS_ITS | Clinical Summary ---
Author Organization [facility] Address [address] [place] [address] Phone Care Team Providers Care Rigging Loft Mechanic Name Role Phone Bean Herbert MD Primary Care Provider [phone] Haley Suresh MD Unavailable [phone] Allergies Active Allergy Reactions Criticality Noted Date Comments Duloxetine Other (See Comments) h/a h/a Sulfa (Sulfonamide Antibiotics) 02/03/2015 Medications * This document contains information received from the source organization and may not represent a complete record from that organization. aspirin 81 mg tabletIndications :HTN (hypertension) Take 1 Tab by mouth daily. 90 Tab 3 08/18/19 11 Active linaCLOtide (LINZESS) 72 mcg Oral CapsuleIndication s:Constipation, chronic Take 1 Capsule by mouth daily. 90 Capsule 2 09/15/19 24 Active Nebulizer Accessories Misc Kit Use 4 times a day prn. 1 Kit 08/06/19 25 Active diphenhydrAMINE (BENADRYL) 50 mg Oral Capsule Take 1 Capsule by mouth daily. 10 Capsule 1 08/06/19 25 Active meclizine (ANTIVERT) 25 mg Oral TabletIndications :Dizziness TAKE 1 TABLET BY MOUTH 4 TIMES DAILY NEEDED FOR DIZZINESS. 120 Tablet 3 09/02/19 25 Active loratadine (CLARITIN) 10 mg Oral TabletIndications :Mild intermittent asthma without complication,Acut e bronchitis due to respiratory syncytial virus Take 1 Tablet by mouth daily. 90 Tablet 1 11/12/19 25 Active losartan (COZAAR) 100 mg Oral TabletIndications :Essential hypertension Take 1 Tablet by mouth 2 times daily. 180 Tablet 3 11/12/19 25 Active omeprazole (PRILOSEC) 20 mg Oral Capsule, Delayed Release(E.C.)Alicia cations:Acute superficial gastritis, presence of bleeding unspecified Take 1 Capsule by mouth 2 times daily (before meals). 180 Capsule 2 11/12/19 25 Active ipratropium-albut michelle (COMBIVENT RESPIMAT) 20-100 mcg/actuation Inhl MistIndications:M ild intermittent asthma without complication Inhale 1 Puff into the lungs every 6 hours as needed. for wheezing 12 g 12/09/19 25 Active albuterol-ipratro pium (DUO-NEB) 3 mg-0.5 mg(2.5 mg base)/3 mL Inhl Solution for NebulizationIndic ations:Mild intermittent asthma without complication,Acut e bronchitis due to respiratory syncytial virus Take 3 mL by nebulization every 6 hours as needed for Shortness of Breath. 1080 mL 10 12/31/19 25 Active rosuvastatin (CRESTOR) 20 mg Oral TabletIndications :Hyperlipidemia with target LDL less than 100 Take 1 Tablet by mouth nightly. 90 Tablet 3 01/04/20 25 Active ergocalciferol (DRISDOL) 1,250 mcg (50,000 unit) Oral CapsuleIndication s:Vitamin D deficiency Take 1 Capsule by mouth once a week. 12 Capsule 3 01/04/20 25 Active LEVOthyroxine (SYNTHROID) 25 mcg Oral TabletIndications :Hypothyroidism (acquired) Take 1 Tablet by mouth daily. 90 Tablet 3 01/27/20 25 Active amLODIPine (NORVASC) 5 mg Oral TabletIndications :Essential hypertension Take 1 Tablet by mouth daily. 90 Tablet 3 01/27/20 25 Active hydrOXYzine (ATARAX) 25 mg Oral TabletIndications :Dysesthesia of scalp Take 1 Tablet by mouth nightly as needed for Itching. Do not drive or operate heavy machinery after taking 90 Tablet 11 01/27/20 25 Active diazePAM (VALIUM) 10 mg Oral TabletIndications :Depression with anxiety Take 1 Tablet by mouth 3 times daily as needed. 90 Tablet 2 01/27/20 25 Active fluconazole (DIFLUCAN) 150 mg Oral Tablet Take 1 Tablet by mouth once a week. 2 Tablet 02/25/20 25 Active budesonide-formot Michelle (SYMBICORT) 160-4.5 mcg/actuation Inhl HFA Aerosol InhalerIndication s:Mild intermittent asthma without complication,Acut e bronchitis due to respiratory syncytial virus Inhale 2 Puffs into the lungs 2 times daily. 10.2 Each 1 03/22/20 25 Active ketoconazole (NIZORAL) 2 % Top ShampooIndication s:Rash Apply topically Three times weekly. 120 mL 1 03/22/20 25 Active ibuprofen (ADVIL;MOTRIN) 800 mg Oral TabletIndications :Degeneration of intervertebral disc of lumbar region, unspecified whether pain present Take 1 Tablet by mouth every 8 hours as needed for Pain. 60 Tablet 5 03/22/20 25 Active HYDROcodone-aceta minophen (NORCO) 10-325 mg Oral TabletIndications :Fibromyalgia,DDD (degenerative disc disease), lumbar,Degenerati ve disc disease, lumbar,Primary osteoarthritis of both knees,Osteoarthri tis of both knees, unspecified osteoarthritis type,Rheumatoid arthritis involving knee (HCC) Take 1 Tablet by mouth every 8 hours as needed for Chronic Pain (G89.29). 90 Tablet 03/25/20 25 Active budesonide-formot Michelle (SYMBICORT) 160-4.5 mcg/actuation Inhl HFA Aerosol InhalerIndication s:Mild intermittent asthma without complication,Acut e bronchitis due to respiratory syncytial virus Inhale 2 Puffs into the lungs 2 times daily. 10.2 Each 11/12/19 25 025 Discontinu ed(Reorder ) ketoconazole (NIZORAL) 2 % Top ShampooIndication s:Rash Apply topically Three times weekly. 120 mL 1 01/28/20 25 025 Discontinu ed(Reorder ) HYDROcodone-aceta minophen (NORCO) 10-325 mg Oral TabletIndications :Fibromyalgia,DDD (degenerative disc disease), lumbar,Degenerati ve disc disease, lumbar,Primary osteoarthritis of both knees,Osteoarthri tis of both knees, unspecified osteoarthritis type,Rheumatoid arthritis involving knee (HCC) Take 1 Tablet by mouth every 8 hours as needed for Chronic Pain (G89.29). 90 Tablet 02/25/20 25 025 Discontinu ed(Reorder ) ibuprofen (ADVIL;MOTRIN) 800 mg Oral TabletIndications :Degeneration of intervertebral disc of lumbar region, unspecified whether pain present Take 1 Tablet by mouth every 8 hours as needed for Pain. 30 Tablet 10 02/25/20 25 025 Discontinu ed(Reorder ) nystatin (MYCOSTATIN) 100,000 unit/mL Oral SuspensionIndicat ions:Thrush of mouth and esophagus (HCC) Take 5 mL by mouth 4 times daily for 14 days. 280 mL 02/29/20 25 025 Active Problems Patient Care Coordination No te Formatting of this note migh t be different from the original. 01/20/12 -Controlled Substance Treatment Agreement. 01/20/12 -Contract for Chronic Benzodiazepines. 01/20/12 -Contract for Chronic Opioids. 04/10/12 -SOAPP Score- 3 UDS OK 08/19/22 UDS OK 09/15/23 UDS OK 07/29/2024 11/18/[address] Herbert MRI PERFORMED AT [facility] ON 09/18/16 -- PATIENT WOULD LIKE TO [...] Imaging X-ray bilateral hands obtained in the hfidsa87/29/18 and reviewed by me with patient on the same day. MCPs normal joint space without erosions. PIPs normal space. Fifth DIP especially right side with joint space narrowing suggestive of osteoarthritis. Wrists without erosions or chondrocalcinosis. Lab 03-30-18 +RF, CCP,KARYN,TPO NEG SSA,SSB,Tucker,DEVELOPMENT TEAM LEAD @TB Gold Neg- 10/29/23, 03/2018 @Functional status [...] Imaging X-ray bilateral hands obtained in the uhdnjk97/29/18 and reviewed by me with patient on the same day. MCPs normal joint space without erosions. PIPs normal space. Fifth DIP especially right side with joint space narrowing suggestive of osteoarthritis. Wrists without erosions or chondrocalcinosis. Lab 03-30-18 +RF, CCP,KARYN,TPO NEG SSA,SSB,Tucker,DEVELOPMENT TEAM LEAD @TB Gold Neg- 10/29/23, 03/2018 @Functional status [...] Imaging X-ray bilateral hands obtained in the boieob57/29/18 and reviewed by me with patient on the same day. MCPs normal joint space without erosions. PIPs normal space. Fifth DIP especially right side with joint space narrowing suggestive of osteoarthritis. Wrists without erosions or chondrocalcinosis. Lab 03-30-18 +RF, CCP,KARYN,TPO NEG SSA,SSB,Tucker,DEVELOPMENT TEAM LEAD @TB Gold Neg- 10/29/23, 03/2018 @Functional status [...] or chondrocalcinosis. lab 03-30-18 +RF, CCP,KARYN,TPO NEG SSA,SSB,Tucker,DEVELOPMENT TEAM LEAD @TB Gold Neg- 03/2018 @Functional status assessed. [...] Encounters Date Type Department Care Team Description 03/22/2025 Telephone [facility] [address] [place] [address] Bean Herbert MD Relaying Information (Please call the Pt. Back to discuss getting Rx refills. Pt. Is confused as to what she needs to do as far as appointment needed for refill with another PCP. Pt. Needs a call back for clarification. //) 03/21/2025 Refill [facility] [address] [place] [address] Bean Herbert MD Medication Refill 03/14/2025 Telephone [facility] [address] [place] [address] Bean Herbert MD Medication Management (Doxycycline ) 02/24/2025 Telephone [facility] [address] [place] [address] Bean Herbert MD Other 02/24/2025 Refill [facility] [address] [place] [address] Bean Herbert MD Medication Refill 02/24/2025 Refill [facility] [address] [place] [address] Bean Herbert MD Medication Refill 02/02/2025 10:33 AM EDT - 02/02/2025 11:59 PM EDT Hospital Encounter [facility] [address] [place] [address] Chronic cough Discharge Disposition: Home or Self Care 02/02/2025 Results Follow-Up [facility] [address] [place] [address] Bean Herbert MD XR CHEST PA AND LATERAL 01/26/2025 [facility] [address] [place] [address] Haley Suresh MD Rheumatoid arthritis involving multiple sites with positive rheumatoid factor (HCC) (Primary Dx); Encounter for long-term (current) use of high-risk medication 01/26/2025 Telephone [facility] [place] [id number] Haley Suresh MD Prior Authorization (TRUXIMA) 01/25/2025 Refill [facility] [address] [place] [address] Bean Herbert MD Medication Refill 01/25/2025 Refill [facility] [address] [place] [address] Josefa Oswald MD Medication Refill 01/25/2025 Refill [facility] [address] [place] [address] Bean Herbert MD Medication Refill 01/17/2025 Telephone [facility] [address] [place] [address] Bean Herbert MD Orders (cxr) 01/17/2025 Telephone [facility] [place] [address] Haley Suresh MD Reschedule (Reschedule) 01/17/2025 Telephone [facility] [address] [place] [address] Angie Orozco, Clerical Staff Biologic Dose/freq Change (Rituxan - 1000mg (x1) Q 6 months) 01/14/2025 Telephone [facility] [address] [place] [address] Bean Herbert MD Symptoms (Only Use If Pt Pushes Back On Scheduling A Visit) (Cough ) 01/13/2025 Orders Only [facility] [address] [place] [address] Haley Suresh MD Rheumatoid arthritis involving multiple sites with positive rheumatoid factor (HCC) (Primary Dx) 01/12/2025 8:00 AM EDT - 01/12/2025 11:59 PM EDT Hospital Encounter [facility] [place] [phone] Rheumatoid arthritis involving multiple sites with positive rheumatoid factor (HCC) (Primary Dx) Discharge Disposition: Home or Self Care 01/12/2025 Telephone [facility] [address] [place] [address] Unique Gaytan MA Results 01/03/[address] [address] Bean Herbert MD Other (pt has a few questions) 12/31/2024 Telephone [facility] [place] [phone] Haley Suresh MD Reschedule (Infusion ) 12/30/2024 2:29 PM EDT - 12/30/2024 11:59 PM EDT Hospital Encounter [facility] [place] [address] Bean Herbert MD Chronic cough Discharge Disposition: Home or Self Care 12/30/2024 1:30 PM EDT Office Visit [facility] [address] [place] [address] Haley Suresh MD Rheumatoid arthritis involving multiple sites with positive rheumatoid factor (HCC) (Primary Dx); Primary osteoarthritis of both knees; Vitamin D deficiency; Encounter for long-term (current) use of high-risk medication; Chronic cough 12/30/2024 10:06 AM EDT - 12/30/2024 2:28 PM EDT [address] En[facility] [address] [place] [address] Bean Herbert MD Chronic cough Discharge Disposition: Home or Self Care 12/30/2024 Telephone [facility] [address] [place] [address] Haley Suresh MD Biologic Dose/freq Change (RTX (DOSING CHANGE)) 12/30/2024 Telephone [facility] [address] [place] [address] Bean Herbert MD Results (Pt seeking results) 12/30/[address] [facility] [address] [place] [address] Bean Herbert MD Medication Refill 12/30/2024 Refill [facility] [address] [place] [address] Bean Herbert MD Medication Refill 12/30/2024 Refill [facility] [address] [place] [address] Bean Herbert MD Medication Refill 12/29/[address] [facility] [address] [place] [address] Bean Herbert MD Medication Refill from Last 3 Months Immunizations Immunization Administration Dates Next Due Tdap 09/13/2013 Surgical History Surgery Date Site/Laterality Comments HYSTERECTOMY SECTION ABDOMEN SURGERY BREAST SURGERY CORONARY ARTERY BYPASS GRAFT Medical History Medical History Date Comments Hypertension Arthritis Anxiety Depression Asthma Family History Medical History Relation Name Comments Lung Cancer Father Diabetes Maternal Grandmother Agueda karen Arthritis Mother Malinda dean Breast Cancer Mother Malinda randallcutt Cancer Mother Malinda randallcutt Diabetes Mother Malinda randallcutt Hypertension Mother Malinda randallcutt Cancer Paternal Grandmother Agueda karen Hypertension Paternal Uncle Relation Name Status Comments [...] Description 04/07/2025 1:15 PM EST Office Visit [facility] [address] [place] [address] Kayla Cali MD [address] [facility] [address] [place] [address] 07/04/2025 11:15 AM EST Office Visit [facility] [address] [place] [address] Haley Suresh MD [address] [place] [address] 07/15/2025 9:30 AM EST [place]ointment [place] [address] Health Maintenance Due Date Last Done Comments Pneumococcal Vaccine 50+ (1 of 2 - PCV) 10/02/1982 Colonoscopy 10/02/2008 FIT 10/02/2008 Sigmoidoscopy 10/02/2008 Virtual Colonography 10/02/2008 RSV or 60+ (1 - Risk 50-74 years 1-dose series) 10/02/2013 Zoster (1 of 2) 10/02/2013 Cologuard 11/18/2021 11/18/2018 Colon Cancer Screening 11/18/2021 DTaP/TDaP/Td (2 - Td or Tdap) 09/14/2023 09/13/2013 COVID-19 Vaccine (2 - season) 2025 05/02/2021 [...] Procedure Name Priority Date/Time Associated Diagnosis Comments SCANNED LABS 03/28/2025 8:30 AM EDT XR CHEST PA AND LATERAL Routine 02/02/2025 [...] Routine 12/30/2024 10:33 AM EDT Chronic cough HCV ANTIBODY SCREEN W/ REFLEX Routine 10/22/2017 3:24 PM EDT Medicare annual wellness visit, subsequent Need for hepatitis C screening test HM MAMMOGRAPHY Routine 08/22/2017 from Last 3 Months or Most Recently Relevant to Health Maintenance Results * SCANNED LABS (03/28/2025 8:30 AM EDT) 03/28/2025 8:30 AM EDT us Unknown Provider HEMATOLOGY ORDERABLES Final Res ult * XR CHEST PA AND LATERAL (02/02/2025 [...] X-RAY, 02/02/2025 10:49 AM CLINICAL HISTORY: R05.3-Chronic [id number] COMPARISON: 08/26/2024 PROCEDURE COMMENTS: Frontal and lateral views of the chest. FINDINGS: Heart and mediastinal contours within normal limits for technique. No active failure, pneumonia, or visible effusion. No visible pneumothorax. Procedure Note Bartolo Milan MD - 02/02/2025 PA AND LATERAL CHEST X-RAY, 02/02/2025 10:49 AM CLINICAL HISTORY: R05.3-Chronic [id number] COMPARISON: 08/26/2024 PROCEDURE COMMENTS: Frontal and lateral [...] - 30 mm/hr 02/02/2025 3:37 PM EDT [facility] Velteo Blood VENOUS BLOOD / Unknown Venipuncture / Unknown 02/02/2025 10:37 AM EDT 02/02/2025 10:37 AM EDT Haley Suresh MD HEMATOLOGY ORDERABLES Final R esult [facility] [address] [facility] , [place] [address] * CBC WITH DIFF (02/02/2025 10:37 AM [...] 3:37 PM EDT [facility] [place] Percent 8.4 % 02/02/2025 3:37 PM EDT [facility] Eos Percent 2.5 % 02/02/2025 3:37 PM EDT [facility] Baso Percent 1.0 % 02/02/2025 3:37 PM EDT [facility] Neut # 3.1 1.6 - 6.1 x10(3)/[facility] 02/02/2025 3:37 PM EDT [facility] Comment:Neutrophils equals s egs plus bands IMMGRAN# 0.0 0.0 - 0.1 x10(3)/[facility] 02/02/2025 3:37 PM EDT [facility] Comment:Automated count of m etamyelocytes, myelocytes and promyelocytes. An absolute IG <0.1 is reported as 0.0. Lymph # 2.3 1.2 - 3.9 x10(3)/[facility] 02/02/2025 3:37 PM EDT [facility] [place] # 0.5 0.3 - 0.9 x10(3)/[facility] 02/02/2025 3:37 PM EDT [facility] Eos# 0.2 0.0 - 0.5 x10(3)/[facility] 02/02/2025 3:37 PM EDT [facility] Baso # 0.1 0.0 - 0.1 x10(3)/[facility] 02/02/2025 3:37 PM EDT [facility] Blood VENOUS BLOOD / Unknown Venipuncture / Unknown 02/02/2025 10:37 AM EDT 02/02/2025 10:37 AM EDT us Haley Suresh MD HEMATOLOGY ORDERABLES Final R esult [facility] [address] [facility] , [place] [address] * C-REACTIVE PROTEIN (02/02/2025 10:37 AM EDT) Only the most recent of2 resultswithin the time period is included. CRP <3.00 <=5.00 mg/L 02/02/2025 5:13 PM EDT [facility] Blood VENOUS BLOOD / Unknown Venipuncture / Unknown 02/02/2025 10:37 AM EDT 02/02/2025 10:37 AM EDT us Haley Suresh MD CHEMISTRY ORDERABLES Final Re sult [facility] [address] [facility] , [place] [address] * (ABNORMAL) COMPREHENSIVE METABOLIC PANEL (02/02/2025 10:37 AM EDT) Only the most recent of2 resultswithin the time period is included. Sodium [...] - 1.3 mg/dL 02/02/2025 5:13 PM EDT [facility] ALT 26 <=41 U/L 02/02/2025 5:13 PM EDT [facility] AST 23 <=40 U/L 02/02/2025 5:13 PM EDT [facility] Alk Phos 75 36 - 123 U/L 02/02/2025 5:13 PM EDT [facility] eGFR (CKD-EPIcr 2020) 81 >=60 mL/min/1.7 3 m2 02/02/2025 5:13 PM EDT [facility] Comment:Estimated GFR was ca lculated using the CKD-EPIcr (2020) equation refit without race. The equation is recommended by the National Kidney [employer] - [place] [employer] Nephrology Task Force. Blood VENOUS BLOOD / Unknown Venipuncture / Unknown 02/02/2025 10:37 AM EDT 02/02/2025 10:37 AM EDT us Bean Herbert MD CHEMISTRY ORDERABLES Final R esult [facility] [address] [facility] , [place] [address] * PULMONARY FUNCTION TEST (12/30/2024 2:35 PM EDT) FVC_PRE 2.30 1.97 - 3.49 L 12/30/2024 4:37 PM EDT [facility] FEV1_PRE 2.03 1.56 - 2.76 L 12/30/2024 4:37 PM EDT [facility] FEV1/FVC_PRE 88.36 67.96 - 90.10 % 12/30/2024 4:37 PM EDT [facility] Hb_PRE 13.70 g(Hb)/dL 12/30/2024 4:37 PM EDT [facility] ERV_PRE 0.53 0.25 - 1.49 L 12/30/2024 4:37 PM EDT [facility] RV_PRE 1.76 1.00 - 2.46 L 12/30/2024 4:37 PM EDT [facility] RV%TLC_PRE 42.92 22.95 - 45.65 % 12/30/2024 4:37 PM EDT [facility] TLC_PRE 4.10 3.83 - 5.77 L 12/30/2024 4:37 PM EDT [facility] FVC_Pre%REF 85 % 12/30/2024 4:37 PM EDT [facility] FEV1_Pre%REF 93 % 12/30/2024 4:37 PM EDT [facility] RV_Pre%REF 108 % 12/30/2024 4:37 PM EDT [facility] TLC_Pre%REF 86 % 12/30/2024 4:37 PM EDT [facility] ERV_Pre%REF 70 % 12/30/2024 4:37 PM EDT [facility] 12/30/2024 2:35 PM EDT Impressions [facility] - 12/30/2024 4:37 PM EDT No Obstruction Normal volumes Normal diffusion Grover Ware MD FCCP Bean Herbert MD PFT ORDERABLES Final Result [facility] [address] [place] [address] * CT CHEST WO CONTRAST (12/30/2024 10:33 [...] CONTRAST, 12/30/2024 10:33 AM CLINICAL HISTORY: R05.3-Chronic [id number]-CM COMPARISON: Chest radiograph 08/26/2024. PROCEDURE COMMENTS: Multi-detector [...] intrathoracic lymphadenopathy or acute osseous abnormality. Bean Herebrt MD IMG CT ORDERABLES Final Resu lt * HEPATITIS C ANTIBODY - SCREENING (10/22/2017 3:24 PM EDT) Hep C Ab Negative Negative 10/23/2017 10:12 AM EDT [facility] Blood VENOUS BLOOD / Unknown Venipuncture / Unknown 10/22/2017 3:24 PM EDT 10/22/2017 3:25 PM EDT Bean Herbert MD HEMATOLOGY ORDERABLES Final Result [facility] [address] [place] [address] * HM MAMMOGRAPHY (08/22/2017) Impressions [facility] - 08/22/2017 Negative Historical Provider HEALTH MAINTENANCE Final Res ult SEP OFFICE from Last 3 Months or Most Recently Relevant to Health Maintenance Insurance [employer] MEDICARE ADVANTAGE MR on file [employer] MEDICARE ADVANTAGE MR on file [employer] MEDICARE ADVANTAGE MR on file Care Teams Rigging Loft Mechanic Relationship Specialty Start Date End Date Bean Herbert MD [address] [place] [address] [address] [place] [phone] PCP - General 04/12/09 Haley Suresh MD [address] [place] [phone] Internal Medicine-Rheumatology 11/04/22
--- OUTSIDE RECORDS SUMMARY | 2025-03-29 07:27 | XMS_ITS | Encounter Summary ---
Author [place] [address] Care Team Providers Care Non Destructive Testing Scientist Name Role Phone Bean Herbert MD Primary Care Provider [phone] Haley Suresh MD Unavailable [phone] Encounter Details Date Type Department Care Team (Late st Contact Info) Description 02/02/2025 Results Follow-Up [facility] [address] [place] [address] Bean Herbert MD [address] [facility] [address] [place] [address] XR CHEST PA AND LATERAL [...] Assessment Author No 07/29/2024 12:36 PM Adeola Kwnog VI * Is the person blind or [...] Description 04/07/2025 1:15 PM EST Office Visit [facility] [place] [address] [place] [address] Kayla Cali MD [address] [facility] [address] [place] [address] 07/04/2025 11:15 AM EST Office Visit [facility] [address] [place] [address] Haley Suresh MD [address] [place] [address] 07/15/2025 9:30 AM EST Appointment [facility] [address] documented as of this encounter Goals Goal Patient Goal Type Associated Problems Recent Progress Patient-Stated? Author Blood Pressure < 140/90 Blood Pressure 143/89( 025 2:06 PM EDT) No Unique Adan RMA Eat better, exercise, reach an ideal body weight General No Kun Gaitan RMA documented as of this encounter Visit Diagnoses Not on filedocumented in this encounter Care Teams Non Destructive Testing Scientist Relationship Specialty Start Date End Date Bean Herbert MD [address] [place] [address] PCP - General 04/12/09 Haley Suresh MD [address] [place] [address] Internal Medicine-Rheumatology 11/04/22 documented as of this encounter
--- OUTSIDE RECORDS SUMMARY | 2025-03-29 07:27 | XMS_ITS | Clinical Summary ---
Author Organization [facility] Address [address] [place] [address] Care Team Providers Care Medicare Sales Executive Name Role Phone Bean Herbert MD Primary Care Provider [phone] Source Comments [facility] is fully rolled out with thefollowing exceptions:General Clinical Research [facility] Social History Tobacco Use Types Packs/Day Years [...] age to complete this topic Insurance MEDICARE Care Teams Medicare Sales Executive Relationship Specialty Start Date End Date Bean Herbert MD [facility] Care [address] [place] [address] PCP - General External Family Practice 10/29/13
--- OUTSIDE RECORDS SUMMARY | 2025-03-29 07:27 | XMS_ITS | Encounter Summary ---
Author Organization [place] [address] Care Team Providers Care Christmas Tree Farmer Name Role Phone Bean Herbert MD Primary Care Provider [phone] Haley Suresh MD Unavailable [phone] Reason for Visit * Reason Onset Date Comments Relaying Information 03/22/2025 Please call the Pt. Back to discuss getting Rx refills. Pt. Is confused as to what she needs to do as far as appointment needed for refill with another PCP. Pt. Needs a call back for clarification. Encounter Details Date Type Department Care Team (Late st Contact Info) Description 03/22/2025 Telephone [facility] [address] [place] [address] Bean Herbert MD [address] [place] [address] Relaying Information (Please call the Pt. Back to discuss getting Rx refills. Pt. Is confused as to what she needs to do as far as appointment needed for refill with another PCP. Pt. Needs a call back for clarification. //) Social History Tobacco Use Types Packs/Day Years [...] needed for Chronic Pain (G89.29). 90 Tablet 03/25/2025 documented in this encounter Miscellaneous Notes * Telephone Encounter - Sarah Jaime 03/22/2025 1:33 PM EDT Pt is scheduled with dr cantor on 04-07 (this is the soonest she can come in). Asking if dr cantor will fillher hydrocodone now so she does not have to wait until appt? Let know. Informed she might only receive a partial rx. * Telephone Encounter - Wali Ortega - 03/22/2025 11:50 AM EDT Select the most appropriate reason for this telephone message: Relaying Information Relaying Information Who is Calling: Patient Return Method of Communication:Phone call What information is the caller relaying:Please call the Pt. Back to discuss getting Rx refills. Pt.Is confused as to what she needs to do as far as appointment needed for refill with another PCP. Pt. Needs a call back for clarification. Further action needed: Yes Additional Information:N/A documented in this encounter Plan of Treatment Upcoming Encounters Date Type Department Care Team (Late st Contact Info) Description 04/07/2025 1:15 PM EST Office Visit [facility] [address] [place] [address] Kayla Cali MD 119 [facility] [address] [place] [address] 07/04/2025 11:15 AM EST Office Visit [facility] [address] [place] [address] Haley Suresh MD [address] [place] [address] 07/15/2025 9:30 AM EST [facility]ointment [facility] [address] documented as of this encounter Goals Goal Patient Goal Type Associated Problems Recent Progress Patient-Stated? Author Blood Pressure < 140/90 Blood Pressure 143/89( 025 2:06 PM EDT) No Uinque Adan, RMA Eat better, exercise, reach an ideal body weight General No Kun Gaitan RMThu documented as of this encounter Visit Diagnoses [...] as needed for Chronic Pain (G89.29). Reorder 02/24/2025 03/22/2025 documented as of this encounter Care Teams Christmas Tree Farmer Relationship Specialty Start Date End Date Bean Herbert MD [address] [place] [address] PCP - General 04/12/09 Haley Suresh MD [address] [place] [address] Internal Medicine-Rheumatology 11/04/22 documented as of this encounter
--- OUTSIDE RECORDS SUMMARY | 2025-03-29 07:27 | XMS_ITS | Encounter Summary ---
Author [place] [address] Care Team Providers Care Seasonal Retail Merchandiser Name Role Phone Bean Herbert MD Primary Care Provider [phone] Haley Suresh MD Unavailable [phone] Reason for Visit * Reason Onset Date Comments Medication Management 03/14/2025 Doxycyclin e Encounter Details Date Type Department Care Team (Late st Contact Info) Description 03/14/2025 Telephone [facility] [address] [place] [address] Bean Herbert MD 119 [facility] [address] [place] [address] Medication Management (Doxycycline ) Social History Tobacco Use Types Packs/Day [...] encounter Miscellaneous Notes * Telephone Encounter - Bean Herbert MD - 03/14/2025 3:23 PM EDT Needs to address this c her lung doc * Telephone Encounter - Marty Hernandez RMA - 03/14/2025 1:48 PM EDT Select the most appropriate reason for this telephone message: Medication Management/Problem Who is calling: Patient Return Method of Communication: MyChart Message What medication(s) do you have concerns about: Doxycycline 100 mg BID x 10 days Prescribing provider: Layo Fair MD Pulmonary doctor What are your concerns/request: she called this doctor and they will not see her until May andsaid to call her PCP , is asking if 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 If you give her antibiotic states she will need the yeast pill also Desired outcome: Change in medication Last appointment date: 12/16/24 Pharmacy: [id number] - [place] [phone] [facility] - [phone] [[id number]] Additional Information: Please Advise Patient/Caller, thank you. documented in this encounter Plan of Treatment Upcoming Encounters Date Type Department Care Team (Late st Contact Info) Description 04/07/2025 1:15 PM EST Office Visit [facility] [address] [place] [address] Kayla Cali MD 119 [facility] [address] [place] [address] 07/04/2025 11:15 AM EST Office Visit [facility] [address] [place] [address] Haley Suresh MD [address] [place] [address] 07/15/2025 9:30 AM EST Appointment [place] [address] documented as of this encounter Goals Goal Patient Goal Type Associated Problems Recent Progress Patient-Stated? Author Blood Pressure < 140/90 Blood Pressure 143/89( 025 2:06 PM EDT) No Unique Adan RMA Eat better, exercise, reach an ideal body weight General No Kun Gaitan RMA documented as of this encounter Visit Diagnoses Not on filedocumented in this encounter Care Teams Seasonal Retail Merchandiser Relationship Specialty Start Date End Date Bean Herbert MD [address] [place] [address] [address] [place] [address] PCP - General 04/12/09 Haley Suresh MD [address] [place] [address] Internal Medicine-Rheumatology 11/04/22 documented as of this encounter
--- OUTSIDE RECORDS SUMMARY | 2025-03-29 07:27 | XMS_ITS | Encounter Summary ---
Author Organization [place] [address] Care Team Providers Care Stripper Latex Name Role Phone Bean Herbert MD Primary Care Provider [phone] Haley Suresh MD Unavailable [phone] Brianda Turcios RN Unavailable Unavailabl e Reason for Referral * Medication Prior Authorization - Closed Specialty Diagnoses / Procedures Referred By Ashtyn miller Referred To Contact Diagnoses Vitamin D deficiency Bean Herbert MD [address] [facility] [address] [address] Phone: tel: fax: Referral ID Status Reason Start Date Expiration Date Visits Re quested Visits Authorized [id number] Closed 1 1 * Consultation (Routine) - Pending Review Specialty Diagnoses / Procedures Referred By Contac t Referred To Contact Pulmonology Diagnoses Chronic cough Procedures LA OFFICE/OUTPATIENT NEW MODERATE MDM 45 MINUTES Bean Herbert MD [address] [place] [address] Phone: tel: fax: [facility] [address] [place] [address] Phone: tel: fax:[phone] Referral ID Status Reason Start Date Expiration Date Visits Requested Visits Authorized [id number] Pending Review Specialty Services Required 01/03/2025 01/03/2026 [...] st Contact Info) Description 01/03/2025 Telephone [facility] [address] [place] [address] Bean Herbert MD 119 [facility] [address] [place] [address] Other (pt has a few questions) [...] were not included. Close reason: Other Payer: [facility] [phone] Note from payer: The medication you have [...] to go: pcp Return Method of Communication: ZeaKalhart Message Additional information:N/A documented in this encounter Plan of Treatment Upcoming Encounters Date Type Department Care Team (Late st Contact Info) Description 04/07/2025 1:15 PM EST Office Visit [facility] [address] [place] [address] Kayla Cali MD 119 [facility] [address] [place] [address] 07/04/2025 11:15 AM EST Office Visit [facility] [address] [place] [address] Haley Suresh MD [address] [place] [address] 07/15/2025 9:30 AM EST Appointment [place] [address] Scheduled Referrals Name Type Priority [...] documented as of this encounter Care Teams Stripper Latex Relationship Specialty Start Date End Date Bean Herbert MD [address] [place] [phone] PCP - General 04/12/09 Haley Suresh MD [address] [place] [address] Internal Medicine-Rheumatology 11/04/22 Brianda Turcios, RN Registered Nurse Infusion Therapy 01/12/25 01/12/25 documented as of this encounter
--- OUTSIDE RECORDS SUMMARY | 2025-03-29 07:27 | XMS_ITS | Encounter Summary ---
Author Organization [place] [address] Care Team Providers Care Burglar Alarm Operator Name Role Phone Bean Herbert MD Primary Care Provider [phone] Haley Suresh MD Unavailable [phone] Brianda Turcios RN Unavailable Unavailabl e Encounter Details Date Type Department Care Team (Late st Contact Info) Description 12/20/2024 Results Follow-Up [facility] [address] [place] [address] Bean Herbert MD [address] [address] VITAMIN D 25 HYDROXY, THYROID [...] of Assessment Author No 07/29/2024 12:36 PM CRISYS Adeola Galloway VI * Because of a [...] EST Office Visit [facility] [address] [place] [address] Kayla Cali MD 119 [facility] [address] [place] [address] 07/04/2025 11:15 AM EST Office Visit [facility] [address] [place] [address] Haley Suresh MD [address] [place] [address] 07/15/2025 9:30 AM EST Appointment [facility] [place], [place] [id number] documented as of this encounter Goals Goal Patient Goal Type Associated Problems Recent Progress Patient-Stated? Author Blood Pressure < 140/90 Blood Pressure 143/89( 025 2:06 PM EDT) No Unique Adan, RMA Eat better, exercise, reach an ideal body weight General No Kun Gaitan, RMA documented as of this encounter Visit Diagnoses Diagnosis Vitamin D deficiency Unspecified vitamin D deficiency documented in this encounter Care Teams Burglar Alarm Operator Relationship Specialty Start Date End Date Bean Herbert MD [address] [place] [address] [address] [place] [address] PCP - General 04/12/09 Haley Suresh MD [address] [place] [address] Internal Medicine-Rheumatology 11/04/22 Brianda Turcios, RN Registered Nurse Infusion Therapy 01/12/25 01/12/25 documented as of this encounter
--- OUTSIDE RECORDS SUMMARY | 2025-03-29 07:27 | XMS_ITS | Encounter Summary ---
Author Organization [place] [address] Care Team Providers Care Typing Checker Name Role Phone Bean Herbert MD Primary Care Provider [phone] Haley Suresh MD Unavailable [phone] Reason for Visit * Reason Onset Date Comments Medication Refill 01/25/2025 Encounter Details Date Type Department Care Team (Late st Contact Info) Description 01/25/[address] [facility] [address] [place] [address] Josefa Oswald MD 119 [facility] [address] [place] [address] Medication Refill Social History Tobacco [...] EST Office Visit [facility] [address] [place] [address] Kayla Cali MD 119 [facility] [address] [place] [address] 07/04/2025 11:15 AM EST Office Visit [facility] [address] [place] [address] Haley Suresh MD [address] [place] [address] 07/15/2025 9:30 AM EST Appointment [place] [address] documented as of this encounter [...] documented as of this encounter Care Teams Typing Checker Relationship Specialty Start Date End Date Bean Herbert MD [address] [place] [address] PCP - General 04/12/09 Haley Suresh MD [address] [place] [address] Internal Medicine-Rheumatology 11/04/22 documented as of this encounter
--- OUTSIDE RECORDS SUMMARY | 2025-03-29 07:27 | XMS_ITS | Encounter Summary ---
Author Organization [place] [address] Care Team Providers Care Professor Of Environmental Engineering Name Role Phone Bean Herbert MD Primary Care Provider [phone] Haley Suresh MD Unavailable [phone] Reason for Visit * Reason Onset Date Comments Medication Refill 03/22/2025 Encounter Details Date Type Department Care Team (Late st Contact Info) Description 03/21/2025 Refill [facility] [address] [place] [address] Bean Herbert MD [address] [address] Medication Refill Social History Tobacco [...] 12:36 PM CRISSY Adeola Galloway, VI * Does this person have serious [...] 12:36 PM CRISSY Adeola Galloway, VI documented as of this encounter Mental [...] as needed for Pain. 60 Tablet 5 03/22/2025 ketoconazole (NIZORAL) 2 % Top ShampooIndications:R regla Apply topically Three times weekly. 120 mL 1 03/22/2025 budesonide-formotero L (SYMBICORT) 160-4.5 mcg/actuation Inhl HFA Aerosol InhalerIndications:M ild intermittent asthma without complication,Acute bronchitis due to respiratory syncytial virus Inhale 2 Puffs into the lungs 2 times daily. 10.2 Each 1 03/22/2025 documented in this encounter Miscellaneous Notes * Telephone Encounter - Annie Pleitez LPN - 03/22/2025 7:42 AM EDT controlled meds denied. Patient due for an appt. Mychart message sent documented in this encounter Plan of Treatment Upcoming Encounters Date Type Department Care Team (Late st Contact Info) Description 04/07/2025 1:15 PM EST Office Visit [facility] [address] [place] [address] Kayla Cali MD [address] [facility] [address] [place] [address] 07/04/2025 11:15 AM EST Office Visit [facility] [address] [place] [address] Haley Suresh MD [address] [place] [address] 07/15/2025 9:30 AM EST Appointment [place] [address] documented as of this encounter [...] due to respiratory syncytial virus Acute bronchitis Rash Rash and other nonspecific skin eruption Depression with anxiety Dysthymic disorder Fibromyalgia Mylagia and myositis, unspecified Degeneration of [...] Discontinue Reason Start Date End Da te budesonide-formoteroL (SYMBICORT) 160-4.5 mcg/actuation Inhl HFA Aerosol InhalerIndications:Mild intermittent asthma without complication,Acute bronchitis due to respiratory syncytial virus Inhale 2 Puffs into the lungs 2 times daily. Reorder 11/11/2024 03/21/2025 ketoconazole (NIZORAL) 2 % Top ShampooIndications:Rash Apply topically Three times weekly. Reorder 01/27/2025 03/21/2025 ibuprofen (ADVIL;MOTRIN) 800 mg Oral TabletIndications:Degener ation of intervertebral disc of lumbar region, unspecified whether pain present Take 1 Tablet by mouth every 8 hours as needed for Pain. Reorder 02/24/2025 03/21/2025 documented as of this encounter Care Teams Professor Of Environmental Engineering Relationship Specialty Start Date End Date Bean Herbert MD [address] [address] PCP - General 04/12/09 Haley Suresh MD [address] [place] [address] Internal Medicine-Rheumatology 11/04/22 documented as of this encounter
--- OUTSIDE RECORDS SUMMARY | 2025-03-29 07:27 | XMS_ITS | Encounter Summary ---
Author Organization [place] [address] Care Team Providers Care Chief Controller Center Name Role Phone Bean Herbert MD Primary Care Provider [phone] Haley Suresh MD Unavailable [phone] Reason for Visit * Reason Onset Date Comments Prior Authorization 01/26/2025 TRUXIMA Encounter Details Date Type Department Care Team (Late st Contact Info) Description 01/26/2025 Telephone [facility] [place] [address] Haley Suresh MD [address] [place] [address] Prior Authorization (TRUX) Social History [...] EST Office Visit [facility] [address] [place] [address] Kayla Cali MD 119 [facility] [address] [place] [address] 07/04/2025 11:15 AM EST Office Visit [facility] [address] [place] [address] Haley Suresh MD [address] [place] [address] 07/15/2025 9:30 AM EST Appointment [place] [address] documented as of this encounter Goals Goal Patient Goal Type Associated Problems Recent Progress Patient-Stated? Author Blood Pressure < 140/90 Blood Pressure 143/89( 025 2:06 PM EDT) No Unique Adan, RMA Eat better, exercise, reach an ideal body weight General No Kun Gaitan, RMA documented as of this encounter Visit Diagnoses Not on filedocumented in this encounter Care Teams Chief Controller Center Relationship Specialty Start Date End Date Bean Herbert MD [address] [place] [address] PCP - General 04/12/09 [place] [address] [place] [address] Internal Medicine-Rheumatology 11/04/22 documented as of this encounter
--- OUTSIDE RECORDS SUMMARY | 2025-03-29 07:27 | XMS_ITS | Encounter Summary ---
Author Organization [place] [address] Care Team Providers Care Set Rider Name Role Phone Bean Herbert MD Primary Care Provider [phone] Haley Suresh MD Unavailable [phone] Reason for Visit * Reason Onset Date Comments Medication Refill 02/24/2025 Encounter Details Date Type Department Care Team (Late st Contact Info) Description 02/24/2025 Refill [facility] [address] [place] [address] Bean Herbert MD [address] [address] Medication Refill Social History Tobacco [...] as needed for Pain. 30 Tablet 10 02/24/2025 documented in this encounter Plan of Treatment Upcoming Encounters Date Type Department Care Team (Late st Contact Info) Description 04/07/2025 1:15 PM EST Office Visit [facility] [address] [place] [address] Kayla Cali MD 119 [facility] [address] [place] [address] 07/04/2025 11:15 AM EST Office Visit [facility] [address] [place] [address] Haley Suresh MD [address] [place] [address] 07/15/2025 9:30 AM EST Appointment [facility] [place], [place] [id number] documented as of this encounter Goals Goal [...] documented as of this encounter Care Teams Set Rider Relationship Specialty Start Date End Date Bean Herbert MD [address] [place] [phone] PCP - General 04/12/09 Haley Suresh MD [address] [place] [address] Internal Medicine-Rheumatology 11/04/22 documented as of this encounter
--- OUTSIDE RECORDS SUMMARY | 2025-03-29 07:27 | XMS_ITS | Encounter Summary ---
Author Organization [place] [address] Care Team Providers Care Film Replacement Orderer Name Role Phone Bean Herbert MD Primary Care Provider [phone] Haley Suresh MD Unavailable [phone] Reason for Visit * Reason Onset Date Comments Medication Refill 02/24/2025 Encounter Details Date Type Department Care Team (Late st Contact Info) Description 02/24/2025 Refill [facility] [address] [place] [address] Bean Herbert MD [address] [address] Medication Refill Social History Tobacco [...] EST Office Visit [facility] [address] [place] [address] Kayla Cali MD 119 [facility] [address] [place] [address] 07/04/2025 11:15 AM EST Office Visit [facility] [address] [place] [address] Haley Suresh MD [address] [place] [address] 07/15/2025 9:30 AM EST Appointment [place] [address] documented as of this encounter [...] documented as of this encounter Care Teams Film Replacement Orderer Relationship Specialty Start Date End Date Bean Herbert MD 119 [facility] [address] [place] [address] PCP - General 04/12/09 Haley Suresh MD [address] [place] [address] Internal Medicine-Rheumatology 11/04/22 documented as of this encounter
--- OUTSIDE RECORDS SUMMARY | 2025-03-29 07:27 | XMS_ITS | Encounter Summary ---
Author Organization [place] [address] Care Team Providers Care Patent Prosecution Attorney Name Role Phone Bean Herbert MD Primary Care Provider [phone] Haley Suresh MD Unavailable [phone] Reason for Visit * Reason Onset Date Comments Medication Refill 01/25/2025 Encounter Details Date Type Department Care Team (Late st Contact Info) Description 01/25/2025 Refill [facility] [address] [place] [address] Bean Herbert MD [address] [address] Medication Refill Social History Tobacco [...] Description 04/07/2025 1:15 PM EST Office Visit [facility] [address] [place] [address] Kayla Cali MD 119 [facility] [address] [place] [address] 07/04/2025 11:15 AM EST Office Visit [facility] [address] [place] [address] Haley Suresh MD [address] [place] [address] 07/15/2025 9:30 AM EST Appointment [place] [address] documented as of this encounter [...] documented as of this encounter Care Teams Patent Prosecution Attorney Relationship Specialty Start Date End Date Bean Herbert MD [address] [place] [address] PCP - General 04/12/09 Haley Suresh MD [address] [place] [address] Internal Medicine-Rheumatology 11/04/22 documented as of this encounter
--- OUTSIDE RECORDS SUMMARY | 2025-03-29 07:27 | XMS_ITS | Encounter Summary ---
Author [place] [address] Care Team Providers Care Cad Librarian Name Role Phone Bean Herbert MD Primary Care Provider [phone] Haley Suresh MD Unavailable [phone] Reason for Visit * Reason Onset Date Comments Other 02/24/2025 Encounter Details Date Type Department Care Team (Late st Contact Info) Description 02/24/2025 Telephone [facility] [address] [place] [address] Bean Herbert MD 119 [facility] [address] [place] [address] Other Social History Tobacco Use Types Packs/Day Years [...] Assessment Author No 07/29/2024 12:36 PM EST Adeola Galloway VI * Is the person blind or does he/she have serious difficulty seeing even when wearing glasses? Answer Date of Assessment Author No 07/29/2024 12:36 PM EST Nilesh Adeola Rai VI * Does this person have serious difficulty walking or climbing stairs? Answer Date of Assessment Author No 07/29/2024 12:36 PM EST Adeola Galloway VI * Does this person have difficulty dressing or bathing? Answer Date of Assessment Author No 07/29/2024 12:36 PM EST Nilesh Adeola Rai VI * Because of a [...] Entry Date Author No 07/29/2024 12:36 PM EST Adeola Galloway VI documented in this encounter Miscellaneous Notes * Telephone Encounter - Adeola Galloway RMA - 02/24/2025 1:20 PM EDT Noted * Telephone Encounter - Jo Norman - 02/24/2025 1:10 PM EDT [facility] Dr[facility] Herbert know that the rx for fluconazole can increase the levels of diazepam and opiods. documented in this encounter Plan of Treatment Upcoming Encounters Date Type Department Care Team (Late st Contact Info) Description 04/07/2025 1:15 PM EST Office Visit [facility] [address] [place] [address] Kayla Cali MD 119 [facility] [address] [place] [address] 07/04/2025 11:15 AM EST Office Visit [facility] [address] [place] [address] Haley Suresh MD [address] [place] [address] 07/15/2025 9:30 AM EST [place]ointment [place] [address] documented as of this encounter Goals Goal Patient Goal Type Associated Problems Recent Progress Patient-Stated? Author Blood Pressure < 140/90 Blood Pressure 143/89( 025 2:06 PM EDT) No Unique Adan, RMA Eat better, exercise, reach an ideal body weight General No Kun Gaitan, RMA documented as of this encounter Visit Diagnoses Not on filedocumented in this encounter Care Teams Cad Librarian Relationship Specialty Start Date End Date Bean Herbert MD [address] [place] [address] [address] [place] [address] PCP - General 04/12/09 Haley Suresh MD [address] [place] [address] Internal Medicine-Rheumatology 11/04/22 documented as of this encounter
--- NOTE | 2025-03-29 07:30 | CT_ITS ---
FINAL REPORT TECHNIQUE: Multiple axial CT sections were performed through the face without IV contrast. Coronal reconstruction images were performed. This study was performed with techniques to keep radiation doses as low as reasonably achievable (ALARA). Individualized dose reduction techniques using automated exposure control or adjustment of mA and/or kV according to the patient's size were employed. CLINICAL HISTORY: chronic sinusitis/ evalation for treatment cough, congestion, soa, pain COMPARISON: CT head 05/08/2017 FINDINGS: There is extensive lobular mucoperiosteal thickening throughout the frontal sinuses, both maxillary sinuses, and right ethmoid air cells. There is minimal mucoperiosteal thickening of the sphenoid sinuses. Findings are consistent with chronic pansinusitis, more evident than on the previous exam. On the coronal images, obstruction of the right ostiomeatal unit is noted. There is no fracture. IMPRESSION: Interval development of chronic pansinusitis. Obstructed right OMU.. Reviewed, Interpreted and Dictated by Ej June MD Transcribed by Donna Juan Authenticated and [facility]
== END 2025-03-29 23:59 | disposition home or self-care (01) ==
LOC: RAD 07:24
PROVIDERS: PCP Family Medicine; Visit Provider Nurse Practitioner
DX: J32.4 Chronic pansinusitis (principal); J34.89 Other specified disorders of nose and nasal sinuses
CPT/HCPCS: 70486

== ENCOUNTER 2025-05-06 11:25 | Outpatient (CLI) | payer MEDICARE, SELFPAY ==
[2025-05-06 09:46] VITALS: BMI 35.6
--- NOTE | 2025-05-06 11:46 | XR_ITS ---
FINAL REPORT CLINICAL HISTORY: preoperative exam, patient has high blood pressure COMPARISON: 03/15/2025 FINDINGS: PA and lateral views of the chest were obtained. The cardiac and mediastinal silhouettes are within normal limits. The lungs are clear. There is no pleural effusion or pneumothorax. No acute osseous abnormality is identified. IMPRESSION: No radiographic evidence of acute cardiac or pulmonary disease. Reviewed, Interpreted and Dictated by Juanis Haines MD Transcribed by Donna Juan Authenticated and [facility]
[2025-05-06 11:59] LABS: Hematocrit 39.3 % (37.0-47.0); Hemoglobin 13.6 g/dL (12.2-16.2); Mean Corpuscular HGB Conc 34.6 g/dL (31.8-35.4); Mean Corpuscular Hemoglobin 30.4 pg (27.0-31.2); Mean Corpuscular Volume 87.7 fl (81-99); Platelet Count 268 K/mm3 (142-424); Red Blood Count 4.48 M/mm3 (4.20-5.40); White Blood Count 6.3 K/mm3 (4.8-10.8)
--- NOTE | 2025-05-06 12:01 | ECG_ITS ---
APPROVED REPORT Exam: Resting ECG HR:89 bpm ECG Measurements Heart Rate 89 AXES AZ 176 P 56 QRSd 80 QRS -22 QT 367 T 43 QTc 413 Conclusion SINUS RHYTHM BORDERLINE LEFT AXIS DEVIATION [QRS AXIS < -20] VOLTAGE CRITERIA FOR LVH [MEETS CRITERIA IN ONE OF: R(aVL), S(V1), R(V5), R(V5/V6)+S(V1)] ABNORMAL ECG UNCONFIRMED REPORT Electronically signed by : Kole Lauren MD 05/07/2025 08:40:33
[2025-05-06 12:07] LABS: Anion Gap 10.7 mEq/L (5-15); Blood Urea Nitrogen 12 mg/dl (7-17); Calcium 8.8 mg/dl (8.4-10.2); Carbon Dioxide 24 mmol/L (22.0-30.0); Chloride 106 mmol/L (98-107); Creatinine Clearance Estimated 82 mL/min (50-200); Creatinine,Serum 0.70 mg/dl (0.52-1.04); Estimated Glomerular Filt Rate 85 ml/min (>60); GFR (African American) 103 ML/MIN (>60); Glucose 171 mg/dl (74-100); Potassium 3.7 mmoL/L (3.5-5.1); Sodium 137 mmol/L (136-145)
[2025-05-06 15:44] LABS: Total Cells Counted 100
[2025-05-06 15:45] LABS: RBC Morphology Normal
== END 2025-05-06 23:59 | disposition home or self-care (01) ==
LOC: PREOP 11:26
PROVIDERS: PCP Family Medicine; Visit Provider Otolaryngology
DX: Z01.810 Encounter for preprocedural cardiovascular examination (principal); Z01.811 Encounter for preprocedural respiratory examination; Z01.812 Encounter for preprocedural laboratory examination; R94.31 Abnormal electrocardiogram [ECG] [EKG]
CPT/HCPCS: 71046; 80048; 85007; 85014; 85018; 85048; 85049; 93005

== ENCOUNTER 2025-05-09 08:28 | Day surgery (SDC) | payer MEDICARE, SELFPAY ==
[2025-05-06 14:14] VITALS: BMI 35.6
[2025-05-09] VITALS (10 sets, daily range): BP systolic 107–140; BP diastolic 41–84; PULSE 92–101; RESP 16–18; TEMP 36.2–36.8; O2SAT 92–95
[2025-05-09] MEDS: LACTATED RINGERS 1000ML 1,000 ML 25 ML IV (08:58)
--- NOTE | 2025-05-09 09:05 | P.PNANES_ITS ---
[facility] Disclaimer: The information contained in this section may have been updated after the patient was seen, as this information can be updated by other users. Medical History Oral thrush Pansinusitis Sinus headache Tenderness over maxillary sinus Tenderness over frontal sinus Deviated septum Nasal turbinate hypertrophy Chronic nasal congestion Chronic recurrent sinusitis Multiple lung nodules on CT Acute bacterial sinusitis Allergic rhinitis Cough productive of purulent sputum Thyroid disease Anxiety Asthma Hypertension Surgical History History of foot surgery History of tubal ligation History of hysterectomy History of section Family History Mother Family history of hypertension Family history of diabetes mellitus type II Family history of breast cancer Social History (Updated 05/09/25 @ 08:57 by Summer Good RN) Smoking Status: Never smoker alcohol intake: never substance use type: denies use current occupational status: disabled Travel in the last 8 weeks?: None [facility] Anesthesia Checklist Patient Identification Patient Identification: Arm Band and Verbal (Name & ) Structural Data Admitted From: Home Planned Operative Procedure/s: FESS Consent for Planned Operative Procedure(s) Verified: Yes Verified Documents: Surgical Consent NPO Status Verified Time NPO: 00:00 Chart Verification Results Verified: ECG Additional verifications Anesthesia Reactions: Yes (pt states O2 dropped and had to stay intubated longer) Hx Blood Transfusions: No Blood Transfusion Reaction: No Airway Assessment Mallampati Score:: Class II C-Spine Mobility Assessed: Yes TMJ Mobility Assessed: Yes Dentition: Good Dentition Neurological Assessment Level of Consciousness: Awake, Alert and Appropriate Hx Seizures: No Numbness or tingling in extremities: No Anesthesia Plan Anesthesia Risk discussed: Yes Anesthesia Plan: Verified ASA Class: II Anesthesia Type: MAC
[2025-05-09] MEDS: OXYMETAZOLINE NASAL SPRAY 0.05% 15ML 15 ML NS (10:46)
[2025-05-09] MEDS: MUPIROCIN 2% OINTMENT 22GM TUBE 22 GM TP (10:46)
[2025-05-09] MEDS: LIDOCAINE 1% W/EPI 1:100,000 20ML VIAL 20 ML (10:46)
[2025-05-09] MEDS: 0.9 % SODIUM CHLORIDE 1000ML 2,000 ML 100 ML IV (10:47)
--- NOTE | 2025-05-09 11:21 | EXP.ANES.I ---
[facility] Anesthesia Record Part I Anesthesia Record I Intake, IV Amount: 500 Hydration: Adequate Estimated blood loss (mL): 5 Urine output (mL): 0 Blood Products used (#): none Blood Pressure: 107/41 SaO2: 93 Pulse Rate: 101 Airway Patency: Patent Respiratory Rate: 16 Temperature: 98.3 F Patient is:: Drowsy and Stable Stable to PACU at:: 11:20
--- NOTE | 2025-05-09 11:24 | P.OP_ITS ---
Date of procedure: 05/09/25 Pre-op Diagnosis:: Chronic pansinusitis Post-op Diagnosis:: Same with involvement of right frontal, right ethmoid, bilateral maxillary and anterior ethmoids on the left Procedure performed:: 1. Use of image guided system 2. Endoscopic bilateral ethmoidectomy 3. Endoscopic right frontal sinus resection with tissue removal 4. Endoscopic bilateral middle meatal antrostomies with tissue removal Surgeon:: Jerry Germain III, MD [employer] Supervisor(s):: none COMPUTER NETWORKER:: Ramon Good Anesthesia: GETA Estimated blood loss (mL): 19 Operative findings:: Chronic inflammation throughout the sinuses Operative note:: The patient was brought to the operating room placed under general endotracheal anesthesia. Topical Afrin and lidocaine was applied on cottonoids and placed within the nose bilaterally. The patient was then placed in the lounge chair position. The nose was prepared and draped in usual fashion. The image guided system was calibrated and gave us good feedback throughout the case. I began the dissection on the left side. I injected 1% lidocaine with epinephrine in the lateral nasal wall. I then remove the uncinate process and entered into the anterior and posterior ethmoid cells removing some polypoid tissue along the way. I then opened into the middle meatus and open this more widely using a backbiting and down-biting instrument. After this was completed on the left, a xerogel pack was placed followed by Mupirocin. I then began our dissection on the right side. Using the image guided system was able to open the anterior and posterior ethmoid cells and clear out a large amount of polypoid debris. I then was able to introduce the nasofrontal balloon that was image guided within the nasofrontal recess. This was ballooned open twice and then I removed some polypoid tissue that was obstructing the entrance. I then opened into the middle meatus on the right side which was noted to have some polypoid tissue that was removed from the entrance. Sinus cavity otherwise appeared healthy. Xerogel pack was then placed on the right followed by mupirocin ointment. Patient was awakened in the operating room taken recovery in good condition. Condition: stable Disposition: PACU Complications:: none
--- NOTE | 2025-05-09 12:52 | P.PNANES_ITS ---
[facility] [place] Anesthesia Record Part II Anesthesia Record Part II Discharge Time: 11:50 Destination: Surgical Day Care (OP Surgery) PACU nurse assessment reviewed?: Yes Patient Condition:: Good Anesthesia Complications:: None Swallowing reflex intact?: Yes Airway Patency: Patent Cyanosis?: No Blood Pressure: 120/75 SaO2: 94 Respiratory Rate: 16 Pulse Rate: 97 Temperature: 98.3 F Mental Status: Alert & Oriented Pain level:: 0 Nausea and/or vomitting:: None Intake, IV Amount: 0 Hydration: Adequate
== END 2025-05-09 12:40 | disposition home or self-care (01) ==
PROVIDERS: PCP Family Medicine; Visit Provider Otolaryngology
PROC: (CPT 30520; principal; 2025-05-09 10:00)
DX: J32.9 Chronic sinusitis, unspecified (principal); J32.4 Chronic pansinusitis; F41.9 Anxiety disorder, unspecified; J45.909 Unspecified asthma, uncomplicated; K21.9 Gastro-esophageal reflux disease without esophagitis; I10 Essential (primary) hypertension; Z90.710 Acquired absence of both cervix and uterus; Z98.51 Tubal ligation status; Z82.49 Family history of ischemic heart disease and other diseases of the circulatory system; Z88.8 Allergy status to other drugs, medicaments and biological substances; Z88.2 Allergy status to sulfonamides; Z79.890 Hormone replacement therapy; Z79.899 Other long term (current) drug therapy
CPT/HCPCS: 31255; 31296; 61782; 88305; 96374; C1726; C1769; J0690; J1100; J2003; J2004; J2250; J2405; J2704; J3010; J7030; J7120